=== PATIENT | male | born 1930 | race Caucasian/White ===

== ENCOUNTER 2016-08-27 20:55 | Emergency (ER) | payer OTHER, BC ==
[2016-08-27 21:13] VITALS: BP 124/68; PULSE 78; TEMP 98.1; BMI 25.7
--- NOTE | 2016-08-27 21:55 | PDOC ---
History of Present Illness - History of Present Illness Initial Comments: 08/27/16 21:56 The patient is a 86 year old male, with a significant past medical history of angina, hypertension, prostate cancer (s/p radiation and Lupron), bifascicular block, vertigo, and kidney stones (with lithotripsy) who presents to the emergency department with persistent, productive cough today. The patient states he was washing dishes when he coughed up sputum and took a sip of juice which initiated a sensation of choking and non-stop coughing at home. He reports the juice went down the wrong pipe. He states he panicked at that time and called ems to bring him to the ED. He reports feeling fine now. The patient reports recently completing a 7 day dose of amoxicillin for bronchitis. He also reports having a low-grade fever (99F-100F) and right eye infection. He denies throat pain. He denies chest pain, shortness of breath, headache and dizziness. He denies fever, chills, nausea, vomit, diarrhea and constipation. He denies dysuria, frequency, urgency and hematuria. Allergies: NKDA PCP - Dr. Kita Mcdaniel ([phone]) <Msaha Torres - Last Filed: 08/27/16 21:58> <Ember Restrepo - Last Filed: 08/28/16 02:55> - General Chief Complaint: Respiratory Stated Complaint: COUGH & SOB Time Seen by Provider: 08/27/16 20:58 Past History <Masha Torres - Last Filed: 08/27/16 21:58> - Past Medical History Cancer: Yes (prostate, tx with radiation and Lupron q3-6 monthly) Hypercholesterolemia: Yes Kidney Stones: Yes (w/ lithotripsy) - Psycho/Social/Smoking Cessation Hx Anxiety: No Suicidal Ideation: No Smoking History: Never smoked Have you smoked in the past 12 months: No Hx Alcohol Use: No Drug/Substance Use Hx: No Substance Use Type: None, Alcohol <Ember Restrepo - Last Filed: 08/28/16 02:55> - Past Medical History Allergies/Adverse Reactions: Allergies Allergy/AdvReac Type Severity Reaction Status Date / Time No Known Allergies Allergy Verified 08/27/16 21:01 Home Medications: Ambulatory Orders Aspirin [ASA -] 81 mg PO DAILY 06/06/13 Amoxicillin - [Amoxicillin 500mg Capsule -] 500 mg PO BID 08/27/16 Benzonatate [Tessalon Pearls -] 100 mg PO TID 08/27/16 Moxifloxacin HCl [Vigamox 0.5% Eye Drops -] 1 drop OU TID 08/27/16 Review of Systems - Review of Systems Able to Perform ROS?: Yes Comments:: 08/27/16 21:56 CONSTITUTIONAL: (+) fever, Absent: chills, diaphoresis, generalized weakness, malaise, loss of appetite HEENT: Absent: rhinorrhea, nasal congestion, throat pain, throat swelling, difficulty swallowing,mouth swelling, ear pain, eye pain, visual Changes CARDIOVASCULAR: Absent: chest pain, syncope, palpitations, irregular heart rate, lightheadedness , peripheral edema RESPIRATORY: (+) cough, absent: shortness of breath, dyspnea with exertion, orthopnea, wheezing, stridor, hemoptysis GASTROINTESTINAL: Absent: abdominal pain, abdominal distension, nausea, vomiting, diarrhea, constipation, melena, hematochezia GENITOURINARY: Absent: dysuria, frequency, urgency, hesitancy, hematuria, flank pain, genital pain MUSCULOSKELETAL: Absent: myalgia, arthralgia, joint swelling SKIN: Absent: rash, itching, pallor HEMATOLOGIC/IMMUNOLOGIC: Absent: easy bleeding, easy bruising, lymphadenopathy, frequent infections ENDOCRINE: Absent: unexplained weight gain, unexplained weight loss, heat intolerance, cold intolerance NEUROLOGIC: Absent: headache, focal weakness or paresthesias, dizziness, unsteady gait, seizure, mental status changes, bladder or bowel incontinence PSYCHIATRIC: Absent: anxiety, depression, suicidal or homicidal ideation, hallucinations. <Masha Torres - Last Filed: 08/27/16 21:58> *Physical Exam - Vital Signs Last Vital Signs Temp Pulse Resp BP Pulse Ox 98.1 F 78 16 124/68 99 08/27/16 20:57 08/27/16 20:57 08/27/16 20:57 08/27/16 20:57 08/27/16 20:57 - Physical Exam Comments: 08/27/16 21:56 GENERAL: The patient is awake, alert, and fully oriented, in no acute distress. HEAD: Normal with no signs of trauma. EYES: Pupils equal, round and reactive to light, extraocular movements intact, sclera anicteric, conjunctiva clear with no pallor. ENT: (+) mildly erythematous oropharynx without exudates. Moist mucous membranes. Ears normal, nares patent, oropharynx clear NECK: Normal range of motion, supple without lymphadenopathy, JVD, or masses. No stridor. LUNGS: Breath sounds equal, clear to auscultation bilaterally. No wheeze/ crackles. HEART: Regular rate and rhythm, normal S1 and S2 without murmur or rub. ABDOMEN: Soft/nontender/nondistended. BS wnl. No guarding or rebound. No palpable masses. No hepatosplenomegaly. EXTREMITIES: (+) 2+ pitting edema bilaterally. Normal range of motion. No clubbing or cyanosis. No cords, erythema, or tenderness. NEUROLOGICAL: Cranial nerves II through XII grossly intact. Normal speech, normal gait. PSYCH: Normal mood, normal affect. SKIN: Warm, Dry, normal turgor, no rashes or lesions noted. <Masha Torres - Last Filed: 08/27/16 21:58> - Vital Signs Last Vital Signs Temp Pulse Resp BP Pulse Ox 98.1 F 78 16 124/68 99 08/27/16 20:57 08/27/16 20:57 08/27/16 20:57 08/27/16 20:57 08/27/16 20:57 <Ember Restrepo - Last Filed: 08/28/16 02:55> Progress Note - Progress Note Progress Note: Documentation has been prepared under my direction and personally reviewed by me in its entirety. I attest that this documented accurately reflects all work, treatment, procedures and medical decision making performed by me. <Ember Restrepo - Last Filed: 08/28/16 02:55> Medical Decision Making - Medical Decision Making As noted above, this 86-year-old man was brought into the ER by ambulance after having a brief choking episode as he was drinking juice and coughing. The patient became rapidly improved on arrival here. He now states that he has no chest pain and has not coughed more since the episode. Patient has been taking amoxicillin for bronchitis. Exam as noted; patient is afebrile with 99% saturation on room air. He is in no respiratory distress. Lungs are clear on auscultation. Since no evidence of respiratory distress, no further workup will be performed at this time. Message was left on patient's PMD's voicemail regarding presentation of the patient. Patient and his state that they will call his PMD (Dr. Kita Mcdaniel Blanchard) in the morning to arrange follow-up within the next few days. Meanwhile, the patient develops any worsening cough/fever/wheezing, he should return to the emergency room. <Ember Restrepo - Last Filed: 08/28/16 02:55> *DC/Admit/Observation/Transfer - Attestations Scribe Attestion: 08/27/16 21:58 Documentation prepared by Masha Torres, acting as medical laboratory technical officer for Ember Restrepo MD <Masha Torres - Last Filed: 08/27/16 21:58> <Ember Restrepo - Last Filed: 08/28/16 02:55> Diagnosis at time of Disposition: History of dysphagia, Bronchitis - Discharge Dispostion Disposition: HOME Condition at time of disposition: Stable - Referrals Referrals: Kita Mcdaniel MD, MD [Primary Care Provider] - Call tomorrow - Patient Instructions Printed Discharge Instructions: DI for Acute Bronchitis Additional Instructions: continue medications as prescribed call Dr Mcdaniel tomorrow and follow-up within the next 1-2 days Return to ER if difficulty breathing or high fever develop
== END 2016-08-27 22:43 | disposition home or self-care (01) ==
LOC: FER 20:55
DX: J40 Bronchitis, not specified as acute or chronic (principal); R13.10 Dysphagia, unspecified; Z85.46 Personal history of malignant neoplasm of prostate; E78.00 Pure hypercholesterolemia, unspecified
CPT/HCPCS: 99281-25

== ENCOUNTER 2017-10-23 21:55 | Emergency (ER) | payer OTHER, BC ==
[2017-10-23 22:18] VITALS: BP 117/65; TEMP 98; BMI 27.8
[2017-10-23] MEDS ORDERED: guaiFENesin 200 MG/10 ML 10 ML UNIT-DOSE CUPS PO ONE (22:21)
--- NOTE | 2017-10-23 22:21 | PDOC ---
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 Patient states that he was at his 's wake when he was crying over her casket, he felt the mucus "go down the wrong way" and she began coughing. He states that he was pack on the back to spit the mucus out. He presents for evaluation. Patient states that he is back at his baseline and would like to go home as he has to attend his 's tomorrow morning. Denies fevers, chills, sore throat, shortness of breath, difficulty breathing, chest pain, nausea, vomiting and diarrhea. Past History - Travel Traveled outside of the country in the last 30 days: No Close contact w/someone who was outside of country & ill: No - Past Medical History Allergies/Adverse Reactions: Allergies Allergy/AdvReac Type Severity Reaction Status Date / Time No Known Allergies Allergy Verified 10/23/17 22:15 Home Medications: Ambulatory Orders Azithromycin [Zithromax 250mg Tablets -] 250 mg PO UTDICT #6 tab 10/23/17 Cetirizine HCl [Zyrtec -] 10 mg PO DAILY #30 tablet 10/23/17 Methylprednisolone [Medrol Dose Jayro] 4 mg PO ASDIR #21 tablet 10/23/17 Cancer: Yes (prostate, tx with radiation and Lupron q3-6 monthly) Hypercholesterolemia: Yes Kidney Stones: Yes (w/ lithotripsy) - Suicide/Smoking/Psychosocial Hx Smoking History: Never smoked Have you smoked in the past 12 months: No Information on smoking cessation initiated: No Hx Alcohol Use: No Drug/Substance Use Hx: No Substance Use Type: None, Alcohol Review of Systems - Review of Systems Able to Perform ROS?: Yes Comments:: 10/23/17 23:02 CONSTITUTIONAL: Absent: fever, chills, diaphoresis, generalized weakness, malaise, loss of appetite HEENT: Present: postnasal drip Absent: rhinorrhea, nasal congestion, throat pain, throat swelling, difficulty swallowing, mouth swelling, ear pain, eye pain, visual Changes CARDIOVASCULAR: Absent: chest pain, loss of consciousness, palpitations, irregular heart rate, peripheral edema RESPIRATORY: Present: cough Absent: shortness of breath, dyspnea with exertion, orthopnea, wheezing, stridor, hemoptysis GASTROINTESTINAL: Absent: abdominal pain, abdominal distension, nausea, vomiting, diarrhea, constipation, melena, hematochezia GENITOURINARY: Absent: dysuria, frequency, urgency, hesitancy, hematuria, flank pain, genital pain MUSCULOSKELETAL: Absent: myalgia, arthralgia, joint swelling SKIN: Absent: rash, itching, pallor HEMATOLOGIC/IMMUNOLOGIC: Absent: easy bleeding, easy bruising, lymphadenopathy, frequent infections ENDOCRINE: Absent: unexplained weight gain, unexplained weight loss, heat intolerance, cold intolerance NEUROLOGIC: Absent: headache, focal weakness or paresthesias, dizziness, unsteady gait, seizure, mental status changes, bladder or bowel incontinence PSYCHIATRIC: Absent: anxiety, depression, suicidal or homicidal ideation, hallucinations. Is the patient limited Armenian proficient: No *Physical Exam - Vital Signs Last Vital Signs Temp Pulse Resp BP Pulse Ox 98.0 F 112 H 18 117/65 96 10/23/17 22:00 10/23/17 22:00 10/23/17 22:00 10/23/17 22:00 10/23/17 22:00 - Physical Exam Comments: 10/23/17 23:04 GENERAL: Well developed, well nourished. Awake and alert. No acute distress. HEENT: Normocephalic, atraumatic. PERRLA, EOMI. No conjunctival pallor. Sclera are non- icteric. Moist mucous membranes. Oropharynx is clear. NECK: Supple. Full ROM. No JVD. Carotid pulses 2+ and symmetric, without bruits. No thyromegaly. No lymphadenopathy. CARDIOVASCULAR: Regular rate and rhythm. No murmurs, rubs, or gallops. Distal pulses are 2+ and symmetric. PULMONARY: Wet cough on exam. No evidence of respiratory distress. Lungs clear to auscultation bilaterally. No wheezing, rales or rhonchi. ABDOMINAL: Soft. Non-tender. Non-distended. No rebound or guarding. No organomegaly. Normoactive bowel sounds. MUSCULOSKELETAL Normal range of motion at all joints. No bony deformities or tenderness. No CVA tenderness. EXTREMITIES: No cyanosis. No clubbing. No edema. No calf tenderness. SKIN: Warm and dry. Normal capillary refill. No rashes. No jaundice. NEUROLOGICAL: Alert, awake, appropriate. Cranial nerves 2-12 intact. No deficits to light touch and temperature in face, upper extremities and lower extremities. No motor deficits in the in face, upper extremities and lower extremities. Normoreflexic in the upper and lower extremities. Normal speech. Toes are down- going bilaterally. Gait is normal without ataxia. PSYCHIATRIC: Cooperative. Good eye contact. Appropriate mood and affect. ED Treatment Course - LABORATORY CBC & Chemistry Diagram: 10/23/17 22:23 10/23/17 22:23 Medical Decision Making - Medical Decision Making 10/23/17 23:10 Patient is an 87-year-old male who presents to emergency department for shortness of breath after inhaling his saliva while crying over his 's casket. Patient states he is at his baseline now and does not feel short of breath. He states that he is not staying overnight because he also tends his seen on the morning. Basic lab work EKG and chest x-ray were obtained. Lab work is grossly normal. Chest x-ray shows right lower/middle lobe pneumonia. Possible aspiration pneumonia. We'll treat with azithromycin and prednisone. Strict return precautions given. Patient to follow up with his primary care doctor this week. We'll discharge home at this time. Patient says all discharge instructions and all questions are answered. EKG: Sinus Rhythm, rate 77 BPM. L axis deviation, RBBB. No acute ST-T wave changes. MA interval shorter when compared with EKG from 04/26/13, other matias unchanged. *DC/Admit/Observation/Transfer Diagnosis at time of Disposition: Postnasal drip Pneumonia Qualifiers: Pneumonia type: due to unspecified organism Laterality: right Lung location: lower lobe of lung Qualified Code(s): J18.1 - Lobar pneumonia, unspecified organism - Discharge Dispostion Disposition: HOME Condition at time of disposition: Stable Decision to Admit order: No - Prescriptions Prescriptions: Azithromycin [Zithromax 250mg Tablets -] 250 mg PO UTDICT #6 tab Cetirizine HCl [Zyrtec -] 10 mg PO DAILY #30 tablet Methylprednisolone [Medrol Dose Jayro] 4 mg PO ASDIR #21 tablet - Referrals Referrals: Baljeet Garcia MD [Staff Physician] - - Patient Instructions Printed Discharge Instructions: DI for Pneumonia -- Adult Additional Instructions: You have a pneumonia based on your x-ray Please take the azithromycin and prednisone as directed. Take these medications up tomorrow. Please take the Zyrtec daily to help with her postnasal drip. Please follow up with your primary care doctor this week. Please also follow-up with Dr. Garcia within the next 7 days. Return to the emergency department if you have increasing shortness of breath, fevers, chills, difficulty breathing, or if you have any changes in your symptoms. - Post Discharge Activity
[2017-10-23] MEDS ORDERED: guaiFENesin 200 MG/10 ML 10 ML UNIT-DOSE CUPS ONE (22:33)
[2017-10-23 22:42] LABS: EOS % 3.2 % (0-4.5); HEMATOCRIT 35.5 % (35.4-49); LYMPH % 7.8 % (8-40); MCH 30.8 pg (25.7-33.7); MCHC 33.9 g/dl (32.0-35.9); MEAN PLT VOLUME 7.8 fl (7.5-11.1); MONO % 7.1 % (3.8-10.2); NEUT % 80.9 % (42.8-82.8); PLATELET COUNT 307 K/MM3 (134-434); RDW 14.2 % (11.9-15.9); WHITE BLOOD COUNT 6.8 K/mm3 (4.0-10.0)
[2017-10-23 23:10] LABS: ALBUMIN 2.9 g/dl (3.4-5.0); ANION GAP 6 (8-16); BILIRUBIN,TOTAL 0.4 mg/dL (0.2-1.0); BLOOD UREA NITROGEN 20 mg/dL (7-18); CALCIUM 8.3 mg/dL (8.5-10.1); CHLORIDE 103 mmol/L (98-107); CO2 28 mmol/L (21-32); CREATININE 0.9 mg/dL (0.7-1.3); GLUCOSE,RANDOM 112 mg/dL (74-106); POTASSIUM 4.2 mmol/L (3.5-5.1); SGOT/AST 26 U/L (15-37); SGPT/ALT 15 U/L (12-78); SODIUM 137 mmol/L (136-145); TOT PROT 6.1 g/dl (6.4-8.2)
[2017-10-23 23:11] LABS: ALK PHOS 102 U/L (45-117)
[2017-10-23 23:57] VITALS: PULSE 97
--- NOTE | 2017-10-24 11:53 | EKG ---
Test Reason : Blood Pressure : / mmHG Vent. Rate : 077 BPM Atrial Rate : 077 BPM P-R Int : 156 ms QRS Dur : 146 ms QT Int : 396 ms P-R-T Axes : -12 -44 034 degrees QTc Int : 448 ms POOR DATA QUALITY, INTERPRETATION MAY BE ADVERSELY AFFECTED NORMAL SINUS RHYTHM LEFT AXIS DEVIATION RIGHT BUNDLE BRANCH BLOCK ABNORMAL ECG WHEN COMPARED WITH ECG OF 26-APR-2013 16:02, SD INTERVAL HAS DECREASED Confirmed by HOLLY SHEETS MD ([id number]) on 10/24/2017 11:52:56 AM Referred By: Confirmed By:HOLLY SHEETS MD
== END 2017-10-24 00:02 | disposition home or self-care (01) ==
LOC: JER 21:55
DX: J18.9 Pneumonia, unspecified organism (principal); E78.5 Hyperlipidemia, unspecified; Z85.46 Personal history of malignant neoplasm of prostate; Z85.118 Personal history of other malignant neoplasm of bronchus and lung; Z87.442 Personal history of urinary calculi; I44.0 Atrioventricular block, first degree
CPT/HCPCS: 36415; 71045-TC-FY; 80053; 85025; 93005; 93010; 99282-25

== ENCOUNTER 2018-01-06 11:57 | Emergency (ER) | payer OTHER, BC ==
[2018-01-06 12:01] VITALS: BP 112/63; PULSE 80; TEMP 98.1; BMI 30.1
--- NOTE | 2018-01-06 12:24 | PDOC ---
Attending Attestation - Resident Resident Name: Mally Rodriguez - ED Attending Attestation I have performed the following: I have examined & evaluated the patient, The case was reviewed & discussed with the resident, I agree w/resident's findings & plan, Exceptions are as noted - HPI HPI: 01/06/18 12:55 87y M hx of prostate ca with chronic barger, came out overnight. pt notes mild abd pressure from wanting to relieve himself. denies any bleeding, hematuria, dysuria, fever/cihlls, back pain. on exam pt with mildly tender suprapubic region that is distended no acute distress othrwise barger cathter was placed with 200cc output - Physicial Exam PE: 01/09/18 20:16 see above - Medical Decision Making 01/09/18 20:16 see above
--- NOTE | 2018-01-06 12:26 | PDOC ---
History of Present Illness - General Chief Complaint: Urinary Catheter Problem Stated Complaint: URINARY PROBLEM Time Seen by Provider: 01/06/18 12:00 History Source: Patient Exam Limitations: No Limitations - History of Present Illness Initial Comments: 01/06/18 12:21 Pt is a 87yo m with PMH of prostate ca with mets to lungs, bones, liver presenting to ED for replacement of barger catheter. Pt said around midnight the barger stopped collecting urine then dislodged, balloon intact. He has been retaining since then. He admits to pain and pressure in the suprapubic region. Denies fever, chills, n/v/d, blood at the meatus or in urine. He is a size 16F. Gets it changed monthly. Urologist: Dr. Peres 01/06/18 12:46 Past History - Past Medical History Allergies/Adverse Reactions: Allergies Allergy/AdvReac Type Severity Reaction Status Date / Time No Known Allergies Allergy Verified 01/06/18 11:59 Home Medications: Ambulatory Orders Mirtazapine [Remeron -] 15 mg PO HS 01/06/18 Tramadol HCl 50 mg PO BID 01/06/18 Cancer: Yes (prostate, tx with radiation and Lupron q3-6 monthly) COPD: No Hypercholesterolemia: Yes Kidney Stones: Yes (w/ lithotripsy) - Suicide/Smoking/Psychosocial Hx Smoking History: Never smoked Have you smoked in the past 12 months: No Hx Alcohol Use: No Drug/Substance Use Hx: No Substance Use Type: None, Alcohol Review of Systems - Review of Systems Constitutional: No: Chills, Fever, Weakness Respiratory: No: Cough, Shortness of Breath Cardiac (ROS): No: Chest Pain, Lightheadedness, Palpitations, Syncope ABD/GI: Yes: Abdominal cramping (suprapubic). No: Constipated, Diarrhea, Nausea , Vomiting : No: Burning, Dysuria, Hematuria, Pain, Testicular Mass, Testicular Pain Musculoskeletal: No: Back Pain, Muscle Pain Neurological: No: Headache *Physical Exam - Vital Signs Last Vital Signs Temp Pulse Resp BP Pulse Ox 98.1 F 80 18 112/63 100 01/06/18 11:59 01/06/18 11:59 01/06/18 11:59 01/06/18 11:59 01/06/18 11:59 - Physical Exam General Appearance: Yes: Appropriately Dressed, Thin. No: Apparent Distress HEENT: positive: EOMI, OMKAR, Pharynx Normal. negative: Pharyngeal Erythema Neck: positive: Trachea midline, Supple. negative: Lymphadenopathy (R), Lymphadenopathy (L) Respiratory/Chest: positive: Lungs Clear, Normal Breath Sounds. negative: Crackles, Rales, Rhonchi, Stridor Cardiovascular: positive: Regular Rhythm, Regular Rate, S1, S2. negative: JVD, Murmur Vascular Pulses: Carotid (R): 2+, Carotid (L): 2+, Dorsalis-Pedis (R): 2+, Doralis-Pedis (L): 2+ Gastrointestinal/Abdominal: positive: Normal Bowel Sounds, Soft, Tenderness ( tender to palpation in suprapubic region). negative: Distended, Guarding, Rebound Male Genitalia: positive: normal genitalia. negative: discharge, testicular tenderness, testicular mass, hematuria Musculoskeletal: negative: CVA Tenderness Integumentary: positive: Normal Color, Dry, Warm Neurologic: positive: credit risk manager II-XII NML intact, Fully Oriented, Alert, Normal Mood/ Affect, Normal Response Medical Decision Making - Medical Decision Making 01/06/18 12:50 Pt is a 87yo m with PMH of metastatic prostate cancer, urinary retention presenting to ED with dislodged barger catheter. Balloon was still intact according to Aide. No blood at urethral meatus, no blood in urine prior to dysfunction. No fevers, chills. Abdominal pain most likely due to retention. New barger 16F inserted. Draining properly. No blood in urine. Slightly cloudy. Pt reported relief of abdominal pain. Drained 200cc then stopped. Leg bag placed. At this time, no need for UA especially since pt has not had problem with previous catheters. Pt is afebrile and hemodynamically stable. Has good urology follow up. Pt can be d/c home and follow up with urologist. Pt agrees with plan and understands return precautions. *DC/Admit/Observation/Transfer Diagnosis at time of Disposition: Urinary catheter insertion/adjustment/removal - Discharge Dispostion Disposition: HOME Condition at time of disposition: Improved Decision to Admit order: No - Referrals Referrals: Chip Malave MD [Staff Physician] - - Patient Instructions Printed Discharge Instructions: How to Care for Your Barger Catheter -- Male Additional Instructions: You were seen here today because your barger catheter was dislodged. We placed in a new 16F catheter. Please follow up with Dr. Malave. Please come back to the ED if: the catheter becomes dislodged, the catheter isn' t draining, there is change in the color of urine, there is blood in the urine, there is urine leaking around the catheter, you develop fevers, chills, abdominal pain or if any new concerning symptom develops. Thank you! - Post Discharge Activity
== END 2018-01-06 12:55 | disposition home or self-care (01) ==
LOC: JER 11:57
PROC: 0TWB70Z Revision of Drainage Device in Bladder, Via Natural or Artificial Opening (ICD-10-PCS; principal; 2018-01-06)
DX: T83.028A Displacement of other urinary catheter, initial encounter (principal); Z85.46 Personal history of malignant neoplasm of prostate; Z85.118 Personal history of other malignant neoplasm of bronchus and lung; Z85.05 Personal history of malignant neoplasm of liver; E78.00 Pure hypercholesterolemia, unspecified; Z87.442 Personal history of urinary calculi
CPT/HCPCS: 51702; 99283-25

== ENCOUNTER 2018-01-19 07:37 | Emergency (ER) | payer OTHER, BC ==
[2018-01-19 07:53] VITALS: TEMP 98.5; BMI 18.3
--- NOTE | 2018-01-19 08:38 | PDOC ---
Attending Attestation - Resident Resident Name: Scott Reeseel - ED Attending Attestation I have performed the following: I have examined & evaluated the patient, The case was reviewed & discussed with the resident, I agree w/resident's findings & plan, Exceptions are as noted - HPI HPI: 01/19/18 08:31 87-year-old male with past medical history of prostate cancer status post indwelling Anaya catheter, last changed in January 06 presents with clogged Anaya catheter. Patient noted yesterday that he was not urinating to the catheter. Reported abdominal distention with discomfort. No fevers or chills. No nausea or vomiting. - Physicial Exam PE: 01/19/18 08:31 GENERAL: Awake, alert, and fully oriented, in no acute distress HEAD: No signs of trauma EYES: EOMI, sclera anicteric, conjunctiva clear ENT: Auricles normal inspection, hearing grossly normal, nares patent, Moist mucosa NECK: Normal ROM, supple ABDOMEN: +abdominal distension, mild suprapubic tenderness. No guarding, no rebound. No masses : no rashes or lesions. no bleeding. EXTREMITIES: Normal range of motion, no edema. No clubbing or cyanosis. No cords, erythema, or tenderness NEUROLOGICAL: Cranial nerves II through XII grossly intact. Normal speech SKIN: Warm, Dry, normal turgor, no rashes or lesions noted. - Medical Decision Making 01/19/18 08:40 Vital Signs Temp Pulse Resp BP Pulse Ox 98.5 F 83 18 101/49 93 L 01/19/18 07:52 01/19/18 07:52 01/19/18 07:52 01/19/18 07:52 01/19/18 07:52 Urinary retention secondary to clogged Anaya catheter. New Anaya catheter insertion placed and over 400 mL of urine output immediately. Improvement in the abdominal exam noted. We'll obtain a UA and a urine culture rule out urinary tract infection. Obtain labs including creatinine to rule out obstruction renal failure. If the workup was unremarkable, the patient be discharged home with indwelling Anaya catheter and follow-up with urologist, Dr. Rodriguez. 01/19/18 10:05 CBC, BMP 01/19/18 09:16 01/19/18 09:16 CMP Sodium 137 mmol/L (136-145) 01/19/18 09:16 Potassium 4.4 mmol/L (3.5-5.1) 01/19/18 09:16 Chloride 102 mmol/L (98-107) 01/19/18 09:16 Carbon Dioxide 24 mmol/L (21-32) 01/19/18 09:16 Anion Gap 11 MMOL/L (8-16) 01/19/18 09:16 BUN 28 mg/dL (7-18) H 01/19/18 09:16 Creatinine 0.8 mg/dL (0.55-1.3) 01/19/18 09:16 Creat Clearance w eGFR > 60 (>60) 01/19/18 09:16 Random Glucose 103 mg/dL (74-106) 01/19/18 09:16 Calcium 9.3 mg/dL (8.5-10.1) 01/19/18 09:16 Total Bilirubin 0.5 mg/dL (0.2-1.0) 01/19/18 09:16 AST 36 U/L (15-37) 01/19/18 09:16 ALT 17 U/L (13-61) 01/19/18 09:16 Alkaline Phosphatase 142 U/L (45-117) H 01/19/18 09:16 Total Protein 7.0 g/dl (6.4-8.2) 01/19/18 09:16 Albumin 3.6 g/dl (3.4-5.0) 01/19/18 09:16 Urine Test Results Urine Color Yellow 01/19/18 09:16 Urine Appearance Cloudy 01/19/18 09:16 Urine pH 7.0 (5.0-8.0) 01/19/18 09:16 Ur Specific [place] 1.015 (1.001-1.035) 01/19/18 09:16 Urine Protein 1+ (NEGATIVE) H 01/19/18 09:16 Urine Glucose (UA) Negative (NEGATIVE) 01/19/18 09:16 Urine Ketones Negative (NEGATIVE) 01/19/18 09:16 Urine Blood 2+ (NEGATIVE) H 01/19/18 09:16 Urine Nitrite Negative (NEGATIVE) 01/19/18 09:16 Urine Bilirubin Negative (<2.0 mg/dL) 01/19/18 09:16 Ur Leukocyte Esterase 2+ (NEGATIVE) H 01/19/18 09:16 Urine Bacteria Rare /hpf (NONE SEEN) 01/19/18 09:16 Urine Mucus Rare 01/19/18 09:16 Labs reviewed. Will treat urine with cephalexin and have the patient follow up with urologist.
--- NOTE | 2018-01-19 08:41 | PDOC ---
History of Present Illness - General Chief Complaint: Urinary Problem Stated Complaint: ABD PAIN Time Seen by Provider: 01/19/18 07:54 - History of Present Illness Initial Comments: 01/19/18 08:51 The patient is an 87 year old male with a history of metastatic prostate CA, HLD , Kidney stones who presents for evaluation of urinary retention. The patient notes that his barger catheter stopped draining 1 day ago and the patient reports progressively worsening lower abdominal pain prompting his presentation to the ED for further evaluation. He notes that his urologist is Dr. Malave and he recently had his barger catheter changed 1-2 weeks ago. He otherwise denies fevers, chills, SOB, chest pain, nausea, vomiting, or changes with bowel movements. Past History - Past Medical History Allergies/Adverse Reactions: Allergies Allergy/AdvReac Type Severity Reaction Status Date / Time No Known Allergies Allergy Verified 01/06/18 11:59 Home Medications: Ambulatory Orders Mirtazapine [Remeron -] 15 mg PO HS 01/06/18 Tramadol HCl 50 mg PO BID 01/06/18 Cephalexin Monohydrate [Keflex -] 500 mg PO BID #14 capsule 01/19/18 Cancer: Yes (prostate, tx with radiation and Lupron q3-6 monthly) COPD: No Hypercholesterolemia: Yes Kidney Stones: Yes (w/ lithotripsy) - Suicide/Smoking/Psychosocial Hx Smoking History: Never smoked Have you smoked in the past 12 months: No Information on smoking cessation initiated: No Hx Alcohol Use: No Drug/Substance Use Hx: No Substance Use Type: None, Alcohol Review of Systems - Review of Systems Comments:: 01/19/18 08:56 Constitutional: No fevers, chills, fatigue, malaise HEENT: No Rhinorrhea, nasal congestion, visual changes Cardiovascular: No chest pain, syncope, palpitations, lightheadedness Respiratory: No Cough, SOB, Hemoptysis, Gastrointestinal: Lower abdominal pain. No Nausea, Vomiting, Constipation, Diarrhea, Melena Genitourinary: Urinary retention. No Dysuria, Frequency, Urgency, Hesitancy, Hematuria, Flank pain Musculoskeletal: No Myalgia, arthralgia Skin: No rashes, itching, bruising, pallor Neurologic: No Headache, Dizziness, Numbness, Weakness, or Tingling. Psychiatric: No Hallucinations. No SI or HI *Physical Exam - Vital Signs Last Vital Signs Temp Pulse Resp BP Pulse Ox 98.5 F 83 18 101/49 93 L 01/19/18 07:52 01/19/18 07:52 01/19/18 07:52 01/19/18 07:52 01/19/18 07:52 - Physical Exam Comments: 01/19/18 08:56 General Appearance: Nourished. No Apparent Distress HEENT: No Pharyngeal Erythema, Tonsillar Exudate, Tonsillar Erythema Neck: No Cervical Lymphadenopathy Respiratory/Chest: Lungs Clear, Normal Breath Sounds. No Crackles, Rales, Rhonchi, Wheezing Cardiovascular: Regular Rhythm, Regular Rate. No Murmur, Gallops, Rubs Gastrointestinal/Abdominal: Normal Bowel Sounds, Soft. Lower abdominal tenderness to palpation noted on exam. No Guarding, Rebound, Musculoskeletal: No CVA Tenderness Extremity: Normal Capillary Refill Integumentary: Normal Color, Dry, Warm Neurologic: Fully Oriented, Alert, Normal Mood/Affect, Normal Response, ED Treatment Course - LABORATORY CBC & Chemistry Diagram: 01/19/18 09:16 01/19/18 09:16 Medical Decision Making - Medical Decision Making 01/19/18 09:03 The patient is an 87 year old male with a history of metastatic prostate CA, HLD , Kidney stones who presents for evaluation of urinary retention. Given the patient's history and physical exam, it is likely the patient's symptoms are due to urinary retention for a clogged barger catheter. We replaced the patient' s barger catheter here in the ED with over 400ccs of urine immediately drained. We will obtain a cbc, cmp, ua, urine culture to evaluate further. We will continue to monitor and reassess while here in the ED. 01/19/18 11:01 CBC, cmp are unremarkable. UA demonstrates leuk esterase with elevated wbc consistent with a UTI. We are comfortable discharging the patient home with urology follow up on antibiotics. We discussed the results, plan, and return precautions with the patient who voiced understanding and is agreeable with the plan. *DC/Admit/Observation/Transfer Diagnosis at time of Disposition: Urinary catheter insertion/adjustment/removal UTI (urinary tract infection) Qualifiers: Urinary tract infection type: site unspecified Hematuria presence: without hematuria Qualified Code(s): N39.0 - Urinary tract infection, site not specified - Discharge Dispostion Disposition: HOME Condition at time of disposition: Stable Decision to Admit order: No - Prescriptions Prescriptions: Cephalexin Monohydrate [Keflex -] 500 mg PO BID #14 capsule - Referrals Referrals: Chip Malave MD [Staff Physician] - - Patient Instructions Printed Discharge Instructions: How to Care for Your Barger Catheter -- Male, DI for Urinary Tract Infection (UTI) Additional Instructions: Please return to the ER if you experience concerning or worsening symptoms including worsening difficulty breathing, weakness, or chest pain. Your lab results were normal here in the ER. We have sent a prescription for antibiotics to your pharmacy that you should take as directed. Please call to schedule a follow up appointment with your primary care provider and urologist within 2-3 days to discuss your ER visit and further management of your symptoms. - Post Discharge Activity
[2018-01-19 09:29] LABS: EOS % 1.2 % (0-4.5); HEMATOCRIT 39.3 % (35.4-49); HEMOGLOBIN 13.1 GM/dL (11.7-16.9); LYMPH % 5.1 % (8-40); MCH 30.4 pg (25.7-33.7); MCHC 33.5 g/dl (32.0-35.9); MEAN CELL VOLUME 90.7 fl (80-96); MEAN PLT VOLUME 7.6 fl (7.5-11.1); MONO % 3.7 % (3.8-10.2); PLATELET COUNT 345 K/MM3 (134-434); RBC 4.33 M/mm3 (4.00-5.60); RDW 15.5 % (11.9-15.9); WHITE BLOOD COUNT 10.4 K/mm3 (4.0-10.0)
[2018-01-19 09:39] LABS: URINE APPEARANCE CLOUDY; URINE BILIRUBIN NEGATIVE (<2.0 mg/dL); URINE GLUCOSE (UA) NEGATIVE (NEGATIVE); URINE KETONE NEGATIVE (NEGATIVE); URINE NITRITE NEGATIVE (NEGATIVE); URINE UROBILINOGEN NEGATIVE mg/dL (0.2-1.0)
[2018-01-19 09:46] LABS: URINE COLOR YELLOW; URINE LEUK ESTERASE 2+ (NEGATIVE); URINE PROTEIN 1+ (NEGATIVE)
[2018-01-19 09:52] LABS: ALBUMIN 3.6 g/dl (3.4-5.0); ALK PHOS 142 U/L (45-117); ANION GAP 11 MMOL/L (8-16); BILIRUBIN,TOTAL 0.5 mg/dL (0.2-1.0); BLOOD UREA NITROGEN 28 mg/dL (7-18); CALCIUM 9.3 mg/dL (8.5-10.1); CHLORIDE 102 mmol/L (98-107); CO2 24 mmol/L (21-32); CREATININE 0.8 mg/dL (0.55-1.3); GLUCOSE,RANDOM 103 mg/dL (74-106); POTASSIUM 4.4 mmol/L (3.5-5.1); SGOT/AST 36 U/L (15-37); SGPT/ALT 17 U/L (13-61); SODIUM 137 mmol/L (136-145)
[2018-01-19 09:56] LABS: URINE BACTERIA RARE /hpf (NONE SEEN); URINE MUCUS RARE
[2018-01-19 10:27] VITALS: BP 105/50; PULSE 70
== END 2018-01-19 10:47 | disposition home or self-care (01) ==
LOC: JER 07:37
PROC: 0T9B70Z Drainage of Bladder with Drainage Device, Via Natural or Artificial Opening (ICD-10-PCS; principal; 2018-01-19)
DX: N39.0 Urinary tract infection, site not specified (principal); Z85.46 Personal history of malignant neoplasm of prostate; E78.5 Hyperlipidemia, unspecified
CPT/HCPCS: 36415; 51702; 80053; 81003; 81015; 85025; 87086; 87186; 99283-25

== ENCOUNTER 2018-02-03 14:44 | Emergency (ER) | payer OTHER, BC ==
--- NOTE | 2018-02-03 14:53 | PDOC ---
Rapid Medical Evaluation Time Seen by Provider: 02/03/18 14:49 Medical Evaluation: Allergies Allergy/AdvReac Type Severity Reaction Status Date / Time No Known Allergies Allergy Verified 01/06/18 11:59 I have performed a brief in-person evaluation of this patient. The patient presents with a chief complaint of: SOB and weak today Pertinent physical exam findings: patient appears pale. O2 sat in lower 90s. Lungs CTA. I have ordered the following: EKG, CXR, labs, 2L O2 via nasal canula The patient will proceed to the ED for further evaluation Discharge Disposition - Diagnosis Shortness of breath, Weakness - Referrals - Patient Instructions - Post Discharge Activity
[2018-02-03 14:55] VITALS: BP 114/51; PULSE 90; TEMP 98.7; BMI 21.4
--- NOTE | 2018-02-03 15:11 | PDOC ---
History of Present Illness <Jacob Ng - Last Filed: 02/03/18 19:54> - History of Present Illness Initial Comments: The patient is an 88M w/ reported metastatic prostate cancer on no medications at home and an indwelling catheter presents for evaluation of 1d of shortness of breath and weakness. The patient's caregiver also reports that he has appeared pale for the last 2-3 days as well. The patient's barger was exchanged today in Dr. Malave's office. The patient denies associated fevers/chills, chest pain, MIRANDA, diarrhea, or blood in his stool. The patient reports having his stool checked two weeks ago, and it was negative for blood per the patient. The patient reports having metastatic cancer to his lung and lumbar vertebrae. PCP: Dr. Hines Urology: Dr. Malave Additionally, patient reports having an appointment tomorrow in [place] to discuss radiation therapy but is not currently on any chemotherapy and does not take any medications at home 02/03/18 15:11 <Sanchez Thornton - Last Filed: 02/03/18 22:07> - General Chief Complaint: Shortness of Breath Stated Complaint: SHORTNESS OF BREATH,WEAKNESS Time Seen by Provider: 02/03/18 14:49 Past History <Jacob Ng - Last Filed: 02/03/18 19:54> - Past Medical History Cancer: Yes (prostate, tx with radiation and Lupron q3-6 monthly) COPD: No Hypercholesterolemia: Yes Kidney Stones: Yes (w/ lithotripsy) - Suicide/Smoking/Psychosocial Hx Smoking History: Never smoked Have you smoked in the past 12 months: No Hx Alcohol Use: No Drug/Substance Use Hx: No Substance Use Type: None, Alcohol <Sanchez Thornton - Last Filed: 02/03/18 22:07> - Past Medical History Allergies/Adverse Reactions: Allergies Allergy/AdvReac Type Severity Reaction Status Date / Time No Known Allergies Allergy Verified 02/03/18 14:56 Home Medications: Ambulatory Orders Mirtazapine [Remeron -] 15 mg PO HS 01/06/18 Tramadol HCl 50 mg PO BID 01/06/18 Cephalexin Monohydrate [Keflex -] 500 mg PO BID #14 capsule 01/19/18 Nitrofurantoin Monohyd/M-Cryst [Macrobid -] 100 mg PO BID #14 capsule 01/22/18 Review of Systems - Review of Systems Able to Perform ROS?: Yes Comments:: GENERAL/CONSTITUTIONAL: +generalized weakness; No fever or chills HEAD, EYES, EARS, NOSE AND THROAT: No change in vision. No ear pain or discharge. No sore throat CARDIOVASCULAR: No chest pain RESPIRATORY: No cough, wheezing, or hemoptysis GASTROINTESTINAL: No nausea, vomiting, diarrhea or constipation GENITOURINARY: +chronic barger changed today MUSCULOSKELETAL: No joint or muscle swelling or pain. No neck or back pain SKIN: No rash NEUROLOGIC: No headache, vertigo, loss of consciousness, or change in strength/ sensation ENDOCRINE: No increased thirst. No abnormal weight change HEMATOLOGIC/LYMPHATIC: +pallor; denies dvt ALLERGIC/IMMUNOLOGIC: No hives or skin allergy 02/03/18 16:06 02/03/18 16:07 Is the patient limited [place] proficient: No <Sanchez Thornton - Last Filed: 02/03/18 22:07> *Physical Exam - Vital Signs Last Vital Signs Temp Pulse Resp BP Pulse Ox 98.7 F 90 18 114/51 L 96 02/03/18 14:49 02/03/18 14:49 02/03/18 14:49 02/03/18 14:49 02/03/18 18:43 <Jacob Ng - Last Filed: 02/03/18 19:54> - Vital Signs Last Vital Signs Temp Pulse Resp BP Pulse Ox 98.7 F 90 18 114/51 L 99 02/03/18 14:49 02/03/18 14:49 02/03/18 14:49 02/03/18 14:49 02/03/18 14:49 - Physical Exam Comments: GENERAL: Awake, alert, and fully oriented, in no acute distress HEAD: No signs of trauma, normocephalic, atraumatic EYES: PERRL, EOMI, sclera anicteric, conjunctiva clear but w/ pallor ENT: Hearing grossly normal, nares patent, oropharynx clear without exudates NECK: Normal ROM, supple LUNGS: No distress, speaks full sentences, clear to auscultation bilaterally HEART:Regular rate and rhythm, normal S1 and S2, no murmurs appreciated, peripheral pulses normal and equal bilaterally ABDOMEN: Soft, nontender, normoactive bowel sounds. No guarding, no rebound EXTREMITIES : Normal inspection, Normal range of motion, no edema. No clubbing or cyanosis NEUROLOGICAL: Cranial nerves II through XII grossly intact. Normal speech, normal gait, no focal sensorimotor deficits SKIN: Warm, Dry, pallor, no rashes or lesions noted 02/03/18 16:05 <Sanchez Thornton - Last Filed: 02/03/18 22:07> Heart Score/ECG Review - ECG Impressions Comment:: 02/03/18 19:54 ekg performed 16:02 interpreted by myself rate of 75 sinus rythm with occasional pac RBBB, LAFB no st changes suggestive of ischemia <Jacob Ng - Last Filed: 02/03/18 19:54> ED Treatment Course - LABORATORY CBC & Chemistry Diagram: 02/03/18 16:50 02/03/18 16:50 - ADDITIONAL ORDERS Additional order review: Laboratory Results 02/03/18 02/03/18 02/03/18 16:50 16:50 16:50 PT with INR 11.90 INR 1.01 Sodium 136 Potassium 4.5 Chloride 100 Carbon Dioxide 24 Anion Gap 11 BUN 18 Creatinine 0.8 Creat Clearance w eGFR > 60 Random Glucose 89 Calcium 9.5 Total Bilirubin 0.5 AST 33 ALT 15 Alkaline Phosphatase 137 H Creatine Kinase 56 Troponin I < 0.02 Total Protein 6.5 Albumin 3.2 L Blood Type O POSITIVE Antibody Screen Negative 02/03/18 16:50 RBC 4.12 MCV 90.8 MCHC 33.4 RDW 15.1 MPV 7.4 L Neutrophils % 80.1 Lymphocytes % 9.1 D Monocytes % 8.5 D Eosinophils % 1.1 Basophils % 1.2 - Medications Given in the ED: ED Medications Discontinued Medications Generic Name Dose Route Start Last Admin Trade Name Freq PRN Reason Stop Dose Admin Sodium Chloride 500 mls @ 500 mls/hr 02/03/18 17:33 02/03/18 18:40 Normal Saline - IV 02/03/18 18:32 Not Given ASDIR STA <Jacob Ng - Last Filed: 02/03/18 19:54> - LABORATORY CBC & Chemistry Diagram: 02/03/18 16:50 02/03/18 16:50 <Sanchez Thornton - Last Filed: 02/03/18 22:07> Medical Decision Making - Medical Decision Making The patient is an 88M w/ a reported metastatic prostate cancer and chronic indwelling barger who presents for evaluation of shortness of breath and generalized weakness. Likely progression of malignancy v UTI/pyelo v anemia ED Course CMP, CBC, cardiac enzyems, UA ECG CXR Patient saturating 96-98% on 2L NC without increased work of breathing. Not on O2 at home 02/03/18 16:08 Trop I neg Lytes wnl Hgb 12 Patient refusing IV line to be placed. Will PO challenge Patient refusing CXR because he has a history of being treated for lung lesions that are thought to be PNA when he has known mets to his lungs. Discussed w/ patient that we would want to look for new pathology including PNX/PNA. He continued to deny CXR and verbalized understanding of risks Patient states that he would like to go home. Refused UA as well 02/03/18 17:53 Patient given strict return precautions. Patient reports that he will follow up with his doctor's appointment tomorrow Patient w/o evidence of systemic infection Dispo: home 02/03/18 18:37 <Sanchez Thornton - Last Filed: 02/03/18 22:07> *DC/Admit/Observation/Transfer - Discharge Dispostion Decision to Admit order: No <Jacob Ng - Last Filed: 02/03/18 19:54> - Discharge Dispostion Decision to Admit order: No <Sanchez Thornton - Last Filed: 02/03/18 22:07> Diagnosis at time of Disposition: Shortness of breath, Weakness - Discharge Dispostion Disposition: HOME Condition at time of disposition: Improved - Referrals Referrals: Lucas Mcdaniel MD, MD [Primary Care Provider] - - Patient Instructions Printed Discharge Instructions: DI for Shortness of Breath Additional Instructions: You were seen in the Emergency Department today for shortness of breath and generalized weakness. Please review the handouts provided at discharge. Please keep your doctor's appointment tomorrow. Return to the Emergency Room if you develop fevers, worsening symptoms, worsening shortness of breath, chest pain, or any new/concerning symptoms.
--- NOTE | 2018-02-03 15:15 | PDOC ---
Attending Attestation - Resident Resident Name: Sanchez Thornton - ED Attending Attestation I have performed the following: I have examined & evaluated the patient, The case was reviewed & discussed with the resident, I agree w/resident's findings & plan, Exceptions are as noted - HPI HPI: 02/03/18 15:45 The patient is a 88 year old male, with a significant past medical history of metastatic prostate CA to the lungs, HLD, Kidney stones, indwelling cateheter ( placed in October 2017 with chronic suprapubic pain), who presents to the emergency department with shortness of breath and weakness for today. He reportedly had a barger placed by Dr. Malave today. 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 He states he had a normal stool sample with Dr. Saucedo to evaluate for colon CA ""because he said it was unasafe for nme to have a colonoscopy at my age. The patient denies chest pain, headache and dizziness. The patient denies fever , chills, nausea, vomit, diarrhea and constipation. He denies blurred or doubledThe patient denies dysuria, frequency, urgency and hematuria. Allergies: NKDA PCP: Dr. Garcia Urology: Dr. Malave - Physicial Exam PE: 02/03/18 17:35 GENERAL: The patient is awake, alert, and fully oriented, cachectic appearing HEAD: Normocephalic, atraumatic. EYES: extraocular movements intact, sclera anicteric, conjunctiva pale. ENT: Normal voice, Moist mucous membranes. NECK: Normal range of motion, supple LUNGS: Breath sounds equal, clear to auscultation bilaterally. No wheezes, no rhonchi, no rales. HEART: Regular rate and rhythm, normal S1 and S2 without murmur, rub or gallop. ABDOMEN: Soft, nontender, No guarding, no rebound. . No CVA tenderness EXTREMITIES: Normal range of motion, no edema. NEUROLOGICAL: No facial assymetry, Normal speech, PSYCH: Normal mood, normal affect. SKIN: Warm, Dry, normal turgor, - Medical Decision Making 02/03/18 17:33 ddx for the pts sx includes but not limited to anemia, metabolic derangement, occult infection will ck labs, ua, will give fluids 02/03/18 17:59 pt declines fluids also denies a cxr. pt states he feels ok and doesnt want a cxr understands the risk that we may miss ptx, pna errquests to go home
[2018-02-03 16:58] LABS: BASO % 1.2 % (0-2.0); EOS % 1.1 % (0-4.5); HEMATOCRIT 37.4 % (35.4-49); HEMOGLOBIN 12.5 GM/dL (11.7-16.9); LYMPH % 9.1 % (8-40); MCH 30.3 pg (25.7-33.7); MCHC 33.4 g/dl (32.0-35.9); MEAN CELL VOLUME 90.8 fl (80-96); MEAN PLT VOLUME 7.4 fl (7.5-11.1); MONO % 8.5 % (3.8-10.2); NEUT % 80.1 % (42.8-82.8); PLATELET COUNT 399 K/MM3 (134-434); RBC 4.12 M/mm3 (4.00-5.60); RDW 15.1 % (11.9-15.9); WHITE BLOOD COUNT 7.7 K/mm3 (4.0-10.0)
[2018-02-03 17:17] LABS: INR 1.01 (0.83-1.09); PROTHROMBIN TIME (PATIENT) 11.9 SEC (9.7-13.0)
[2018-02-03 17:22] LABS: ALBUMIN 3.2 g/dl (3.4-5.0); ALK PHOS 137 U/L (45-117); ANION GAP 11 MMOL/L (8-16); BILIRUBIN,TOTAL 0.5 mg/dL (0.2-1); BLOOD UREA NITROGEN 18 mg/dL (7-18); CALCIUM 9.5 mg/dL (8.5-10.1); CHLORIDE 100 mmol/L (98-107); CO2 24 mmol/L (21-32); CREATININE 0.8 mg/dL (0.55-1.3); GLUCOSE,RANDOM 89 mg/dL (74-106); POTASSIUM 4.5 mmol/L (3.5-5.1); SGOT/AST 33 U/L (15-37); SGPT/ALT 15 U/L (13-61); SODIUM 136 mmol/L (136-145); TOT PROT 6.5 g/dl (6.4-8.2)
[2018-02-03] MEDS ORDERED: SODIUM CHLORIDE 500 ML IV STA (17:33)
--- NOTE | 2018-02-04 10:44 | EKG ---
Test Reason : Blood Pressure : / mmHG Vent. Rate : 075 BPM Atrial Rate : 075 BPM P-R Int : 164 ms QRS Dur : 122 ms QT Int : 394 ms P-R-T Axes : 086 -57 031 degrees QTc Int : 439 ms SINUS RHYTHM WITH PREMATURE ATRIAL COMPLEXES RIGHT BUNDLE BRANCH BLOCK LEFT ANTERIOR FASCICULAR BLOCK BIFASCICULAR BLOCK ABNORMAL ECG WHEN COMPARED WITH ECG OF 23-OCT-2017 22:39, PREMATURE ATRIAL COMPLEXES ARE NOW PRESENT Confirmed by Jason Howard MD ([id number]) on 02/04/2018 10:43:41 AM Referred By: Confirmed By:Jason Howard MD
== END 2018-02-03 19:02 | disposition home or self-care (01) ==
LOC: JER 14:44
PROC: 3E0337Z Introduction of Electrolytic and Water Balance Substance into Peripheral Vein, Percutaneous Approach (ICD-10-PCS; principal; 2018-02-03)
DX: R53.1 Weakness (principal); R06.02 Shortness of breath; E78.00 Pure hypercholesterolemia, unspecified; Z85.46 Personal history of malignant neoplasm of prostate; Z85.118 Personal history of other malignant neoplasm of bronchus and lung; Z85.830 Personal history of malignant neoplasm of bone; Z87.898 Personal history of other specified conditions
CPT/HCPCS: 36415; 80053; 82550; 84484; 85025; 85610; 86850; 86900; 86901; 93005; 93010; 96360; 99282-25

== ENCOUNTER 2018-02-20 00:16 | Emergency (ER) | payer OTHER, BC ==
[2018-02-20 00:23] VITALS: BP 114/53; PULSE 77; TEMP 97.5; BMI 22.1
--- NOTE | 2018-02-20 01:46 | PDOC ---
History of Present Illness - General Chief Complaint: Urinary Catheter Problem Stated Complaint: CATHETER PROBLEM Time Seen by Provider: 02/20/18 01:46 History Source: Patient Exam Limitations: No Limitations - History of Present Illness Initial Comments: 02/20/18 02:04 Ms Quijano is an 88 yo M h/o metastatic prostate cancer (to lungs and lumbar vertebrae) who presents to the ER with a complaint of barger cathether dysfunction Pt states he believes that he has a urinary tract infection (because earlier in the week he say sediment in the urine which he described as crumbs) He was seen by his PMD today who that patient states did not want to start antibiotics Today after supper, the patient states he noticed that he did not see any urine in the "tube" He noted suprapubic tenderness which prompted his visit to the ER NO fevers or chills No flank pain No nausea or vomiting PCP: Dr. Hines Urology: Dr. Malave PMH:Metastatic prostate cancer, HLD, h/o Kidney stones Meds: Lupron, Cipro was prescribed today ALL: NKDA Social: Denies drug or tobacco use ROS: GENERAL/CONSTITUTIONAL: No: fever, chills, weakness HEAD, EYES, EARS, NOSE AND THROAT: No: change in vision, ear pain, discharge, sore throat, throat swelling. CARDIOVASCULAR: No: chest pain, lightheadedness RESPIRATORY: No: cough, shortness of breath, wheezing, hemoptysis, stridor. GASTROINTESTINAL: No: nausea, vomiting, diarrhea, abdominal pain GENITOURINARY: No: dysuria, hematuria MUSCULOSKELETAL: No: back pain SKIN AND BREASTS: No: lesions, pallor, rash or easy bruising. NEUROLOGIC: No: headache, vertigo, paresthesias, weakness ENDOCRINE: No: unexplained weight gain or loss HEMATOLOGIC/LYMPHATIC: No: anemia, easy bleeding, swelling nodes. PE: GENERAL: The patient is in no acute distress. HEAD: Normal with no signs of trauma. EYES: PERRLA, EOMI, sclera anicteric, conjunctiva clear. ENT: Ears normal, nares patent, oropharynx clear without exudates. Moist mucous membranes. NECK: Normal range of motion, supple without lymphadenopathy, JVD, or masses. LUNGS: Breath sounds equal, clear to auscultation bilaterally. No wheezes, and no crackles. HEART:Regular rate and rhythm, normal S1 and S2 without murmur, rub or gallop. ABDOMEN: Soft, nontender, normoactive bowel sounds. No guarding, no rebound. No masses palpable. EXTREMITIES: Normal range of motion, no edema. No clubbing or cyanosis. No erythema, or tenderness. NEUROLOGICAL: Cranial nerves II through XII grossly intact. Normal speech. No focal neurological deficits. MUSCULOSKELETAL: Back non-tender to palpation, no CVA tenderness SKIN: Warm, Dry, normal turgor, no rashes or lesions noted. Past History - Past Medical History Allergies/Adverse Reactions: Allergies Allergy/AdvReac Type Severity Reaction Status Date / Time No Known Allergies Allergy Verified 02/20/18 00:21 Home Medications: Ambulatory Orders Cefpodoxime Proxetil [Vantin -] 100 mg PO BID #14 tablet 02/20/18 Cancer: Yes (WITH METS.) COPD: No DVT: No Hypercholesterolemia: Yes Kidney Stones: Yes (w/ lithotripsy) - Suicide/Smoking/Psychosocial Hx Smoking History: Never smoked Have you smoked in the past 12 months: No Hx Alcohol Use: No Drug/Substance Use Hx: No Substance Use Type: None, Alcohol *Physical Exam - Vital Signs Last Vital Signs Temp Pulse Resp BP Pulse Ox 97.5 F L 77 18 114/53 L 98 02/20/18 00:22 02/20/18 00:22 02/20/18 00:22 02/20/18 00:22 02/20/18 00:22 Medical Decision Making - Medical Decision Making 02/20/18 02:42 Laboratory Tests 02/20/18 02:10 Urine Blood 1+ H Urine Nitrite Negative Ur Leukocyte Esterase 3+ H Urine WBC (Auto) 143 Urine RBC (Auto) 3 Amorphous Urates 3+ Urine Bacteria Many Urine Mucus Rare UA similar to prior UA 02/20/18 03:10 Prior cultures reviewed Pt grew Enterococcus, Klebsiella, Citerobacter (thought to be a contaminant) If not contaminated pt is sensitive for cephalosporin Will discharge on cefpodoxime Pt to follow up with Urology and PMD Return to the ER for fevers or chills Clinical Impression: UTI, repeat presentation 02/20/18 03:17 *DC/Admit/Observation/Transfer Diagnosis at time of Disposition: UTI (urinary tract infection) Qualifiers: Urinary tract infection type: site unspecified Hematuria presence: without hematuria Qualified Code(s): N39.0 - Urinary tract infection, site not specified - Discharge Dispostion Disposition: HOME Condition at time of disposition: Stable Decision to Admit order: No - Prescriptions Prescriptions: Cefpodoxime Proxetil [Vantin -] 100 mg PO BID #14 tablet - Referrals Referrals: Baljeet Garcia MD [Staff Physician] - Chip Malave MD [Staff Physician] - Lucas Mcdaniel MD, MD [Primary Care Provider] - Thaddeus Zheng MD [Staff Physician] - - Patient Instructions Printed Discharge Instructions: DI for Urinary Tract Infection (UTI) - Post Discharge Activity
[2018-02-20 02:25] LABS: URINE APPEARANCE CLOUDY; URINE BILIRUBIN NEGATIVE (<2.0 mg/dL); URINE COLOR YELLOW; URINE GLUCOSE (UA) NEGATIVE (NEGATIVE); URINE KETONE NEGATIVE (NEGATIVE); URINE LEUK ESTERASE 3+ (NEGATIVE); URINE NITRITE NEGATIVE (NEGATIVE); URINE PROTEIN 1+ (NEGATIVE); URINE UROBILINOGEN NEGATIVE mg/dL (0.2-1.0)
[2018-02-20 02:34] LABS: URINE BACTERIA MANY /hpf (NONE SEEN); URINE MUCUS RARE
[2018-02-20 02:35] LABS: AMORP URATES 3+ /hpf (NONE SEEN)
== END 2018-02-20 04:41 | disposition home or self-care (01) ==
LOC: JER 00:16
DX: N39.0 Urinary tract infection, site not specified (principal); B96.89 Other specified bacterial agents as the cause of diseases classified elsewhere; Z85.46 Personal history of malignant neoplasm of prostate; Z85.118 Personal history of other malignant neoplasm of bronchus and lung; Z85.830 Personal history of malignant neoplasm of bone; E78.00 Pure hypercholesterolemia, unspecified; Z87.442 Personal history of urinary calculi
CPT/HCPCS: 81003; 81015; 87086; 87186; 99282-25

== ENCOUNTER 2018-05-09 17:29 | Inpatient (IN) | payer OTHER, BC ==
--- NOTE | 2018-05-09 17:43 | PDOC ---
History of Present Illness - General Stated Complaint: CATHETER ISSUES Time Seen by Provider: 05/09/18 17:41 History Source: Patient, Old Records Exam Limitations: No Limitations - History of Present Illness Initial Comments: HPI: 88 y/o male presenting to [facility] ER complaining of suprabupic tenderness and decreased barger output for the past hour. Pt reports continuous gross hematuria since . Denies fevers, chills, or diaphoresis. Pt has continuous barger in place for urinary retention secondary to metastatic prostate cancer. Is scheduled to have the catheter changed on 05/13/18. Was evaluated at his oncologists office this morning and diagnosed with UTI based on outpatient UA. PCP: Dr. Hines Urology: Dr. 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 Past History - Past Medical History Allergies/Adverse Reactions: Allergies Allergy/AdvReac Type Severity Reaction Status Date / Time No Known Allergies Allergy Verified 02/20/18 00:21 Home Medications: Ambulatory Orders Cefpodoxime Proxetil [Vantin -] 100 mg PO BID #14 tablet 02/20/18 Cancer: Yes (WITH METS.) COPD: No DVT: No Hypercholesterolemia: Yes Kidney Stones: Yes (w/ lithotripsy) - Suicide/Smoking/Psychosocial Hx Smoking History: Never smoked Have you smoked in the past 12 months: No Information on smoking cessation initiated: No Hx Alcohol Use: No Drug/Substance Use Hx: No Substance Use Type: None, Alcohol Review of Systems - Review of Systems Able to Perform ROS?: Yes Comments:: In addition to that documented in the HPI above, the additional ROS was obtained : Constitutional: Denies fevers or chills Eyes: Denies vision changes ENMT: Denies sore throat CV: Denies chest pain Resp: Denies SOB GI: Denies vomiting or diarrhea : Per HPI MSK: Denies recent trauma Skin: Denies new rashes Neuro: Denies new numbness or tingling or weakness Endocrine: Denies polyuria Heme: Denies bruising *Physical Exam - Vital Signs Last Vital Signs Temp Pulse Resp BP Pulse Ox 84 18 128/63 93 L 05/09/18 17:40 05/09/18 17:40 05/09/18 17:40 05/09/18 17:40 - Physical Exam Comments: Constitutional: Thin, elderly male in no acute distress but in obvious discomfort. Found semi-fowlers on hospital bed. Alert and oriented x4. Answered all questions appropriately and completely. Speech was non-labored, non- pressured. Head: Normocephalic. No obvious external signs of trauma. Eyes: Sclerae white. Conjunctiva moist and not injected. EARS: Hearing grossly intact. NOSE: No nasal discharge. Neck: Supple, trachea is midline. Cardiovascular: Regular rate and regular rhythm. No murmur, rubs, clicks, or gallops. Peripheral pulses: Radial pulses full. Respiratory: Breathing unlabored. Equal chest rise and fall. Clear to auscultation bilaterally. No stridor, no wheezing, no rhonchi. Gastrointestinal: abdomen is tender in suprapubic region. No pulsatile masses. No overlying skin lesions or obvious signs of trauma. : Barger catheter in place. Gross hematuria and clot in the tubing and in the bag. Neuro: Alert and oriented. Moving all four extremities spontaneously. Skin: Warm, dry, and intact. Psych: Affect: appropriate. Mood: normal. Moderate Sedation - Procedure Monitoring Vital Signs: Procedure Monitoring Vital Signs Temperature Pulse Rate 84 05/09/18 17:40 Respiratory Rate 18 05/09/18 17:40 Blood Pressure 128/63 05/09/18 17:40 O2 Sat by Pulse Oximetry (%) 93 L 05/09/18 17:40 ED Treatment Course - LABORATORY CBC & Chemistry Diagram: 05/09/18 19:36 05/09/18 19:36 Medical Decision Making - Medical Decision Making *Reviewed vital signs, nursing notes, and prior visit documentation (if available). 88 y/o male complaining of suprapubic tenderness and decreased barger output. Hematuria x10 days. No fevers or chills. Vitals unremarkable for hypotension or tachycardia. Suspect acute pain is secondary to clot(s) occluding catheter. Three way catheter placed and CBI initiated. Unable to pass 22g catheter, successful with 24g. UA revealed gross blood with RBCs but no pyuria, leukocyte esterase, or nitrites. Low suspicion for hemorrhagic cystitis. Ordered single dose of cefazolin given multiple barger insertions. CBC unremarkable for anemia. 20:[address] Malave. Verbally appraised of the pts HPI, ED course, and current plan of management. Will evaluate pt in the morning. No further orders requested. Will admit for large volume gross hematuria likely requiring serial H/H. Will be evaluated by urology. 20:53 Telephone consultation with LEXI Rader. Verbally appraised of the pts HPI, ED course, and current plan of management. Agrees to admit pt to med/surg for Dr. Adams. air launch weapons technician informed MD that pt refused portal CXR. *DC/Admit/Observation/Transfer Diagnosis at time of Disposition: Hematuria, gross - Discharge Dispostion Condition at time of disposition: Stable Decision to Admit order: Yes - Referrals - Patient Instructions - Post Discharge Activity
--- NOTE | 2018-05-09 18:09 | PDOC ---
Attending Attestation - HPI HPI: 05/09/18 18:11 The patient is a 88 year old male, with a significant past medical history of metastatic prostate CA to the lungs, HLD, Kidney stones, indwelling catheter ( placed in October 2017 with chronic suprapubic pain), who presents to the emergency department with increased suprapubic pain in the setting of blocked catheter today. He also reports having bright red blood from the catheter since 04/29/18 and reportedly has an appointment on Saturday with urology. He denies taking anticoagulants. The patient denies chest pain, headache and dizziness. The patient denies fever , chills, nausea, vomit, diarrhea and constipation. He denies blurred or doubled vision. The patient denies dysuria, frequency, urgency. Allergies: NKDA PCP: Dr. Garcia Urology: Dr. Malave Documentation prepared by Masha Torres, acting as medical i d sales for Jonathan Rivera MD <Masha Torres - Last Filed: 05/09/18 18:11> - Resident Resident Name: Danny Rios - ED Attending Attestation I have performed the following: I have examined & evaluated the patient, The case was reviewed & discussed with the resident, I agree w/resident's findings & plan, Exceptions are as noted - Physicial Exam PE: 05/09/18 19:15 Patient is awake and alert, frail-appearing, and in severe distress Normocephalic, atraumatic PERRLA, EOMI, conjunctiva are pale cta rrr Abdomen is soft, soft tissue mass is palpable extending up to the umbilicus likely representing a distended bladder Blood is noted at the penile meatus - Medical Decision Making 05/09/18 19:16 88-year-old male with 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 Will replace the Anaya catheter with a three-way catheter. Will initiate CBI. Will obtain urine for culture and sensitivity. Will obtain CBC and CMP to evaluate for anemia and renal dysfunction. <Jonathan Rivera - Last Filed: 05/09/18 19:17>
[2018-05-09 19:14] LABS: URINE APPEARANCE CLEAR; URINE BILIRUBIN NEGATIVE (<2.0 mg/dL); URINE COLOR RED; URINE GLUCOSE (UA) 2+ (NEGATIVE); URINE KETONE NEGATIVE (NEGATIVE); URINE LEUK ESTERASE NEGATIVE (NEGATIVE); URINE NITRITE NEGATIVE (NEGATIVE); URINE PROTEIN 3+ (NEGATIVE); URINE UROBILINOGEN NEGATIVE mg/dL (0.2-1.0)
[2018-05-09] MEDS ORDERED: ceFAZolin 1 GRAM PREMIX BAG IVPB ONE (19:47)
[2018-05-09] MEDS ORDERED: CEFAZOLIN 1 GM/D5W 1 GM/50 ML BAG ONE (20:07)
[2018-05-09 20:08] LABS: BASO % 0.4 % (0-2.0); EOS % 0.2 % (0-4.5); HEMATOCRIT 34.4 % (35.4-49); HEMOGLOBIN 12.1 GM/dL (11.7-16.9); LYMPH % 3.4 % (8-40); MCH 32.1 pg (25.7-33.7); MEAN CELL VOLUME 91.5 fl (80-96); MEAN PLT VOLUME 7.3 fl (7.5-11.1); MONO % 3.8 % (3.8-10.2); NEUT % 92.2 % (42.8-82.8); PLATELET COUNT 261 K/MM3 (134-434); RBC 3.76 M/mm3 (4.00-5.60); RDW 15.3 % (11.9-15.9); WHITE BLOOD COUNT 9.3 K/mm3 (4.0-10.0)
[2018-05-09 20:26] LABS: INR 1.03 (0.83-1.09); PROTHROMBIN TIME (PATIENT) 12.2 SEC (9.7-13.0)
[2018-05-09 20:29] LABS: ACTIVATED PTT 26.7 SECONDS (25.2-36.5)
[2018-05-09 20:51] LABS: PLATELET ESTIMATE ADEQUATE
[2018-05-09 21:28] LABS: ALBUMIN 3.2 g/dl (3.4-5.0); ALK PHOS 157 U/L (45-117); ANION GAP 11 MMOL/L (8-16); BILIRUBIN,TOTAL 0.6 mg/dL (0.2-1); BLOOD UREA NITROGEN 21 mg/dL (7-18); CHLORIDE 98 mmol/L (98-107); CO2 25 mmol/L (21-32); GLUCOSE,RANDOM 163 mg/dL (74-106); POTASSIUM 4.3 mmol/L (3.5-5.1); SGOT/AST 66 U/L (15-37); SGPT/ALT 19 U/L (13-61); SODIUM 135 mmol/L (136-145); TOT PROT 6.2 g/dl (6.4-8.2)
--- NOTE | 2018-05-09 21:47 | HP ---
Admitting History and Physical - Primary Care Physician PCP: Baljeet Garcia - Admission Chief Complaint: Suprapubic Pain, Hematuria History of Present Illness: This is a 88 y/o man with a past medical history of Metastatic Prostate Ca ( lungs/lumbar vertebrae), HLD, Renal Calculi (Lithotripsy). Who presents to the ED with hematuria since 04/28/18, and suprapubic pain worse today. Patient was at his oncologist's office today and was to start ABX for a UTI from a lab test. Patient reports having decreased urine draining from his barger catheter due to large clot formation. He reports having increased weakness and generalized lumbar pain. Patient reports having chills without fever. Patient denies cough, SOB, CP, palpations, AP, N/V/D, constipation, melena. History Source: Patient, Medical Record Limitations to Obtaining History: No Limitations - Smoking History Smoking history: Never smoked Have you smoked in the past 12 months: No - Alcohol/Substance Use Hx Alcohol Use: No History of Substance Use: reports: None - Social History Usual Living Arrangement: Yes: With Child ADL: Family Assistance History of Recent Travel: No Home Medications - Allergies Allergies/Adverse Reactions: Allergies Allergy/AdvReac Type Severity Reaction Status Date / Time No Known Allergies Allergy Verified 02/20/18 00:21 - Home Medications Home Medications: Ambulatory Orders Cefpodoxime Proxetil [Vantin -] 100 mg PO BID #14 tablet 02/20/18 Family Disease History - Family Disease History Family History: Unable to Obtain Review of Systems - Review of Systems Constitutional: reports: Chills, Loss of Appetite, Weakness Eyes: reports: No Symptoms HENT: reports: No Symptoms Neck: reports: No Symptoms Cardiovascular: reports: Shortness of Breath Respiratory: reports: SOB on Exertion Gastrointestinal: reports: Abdominal Pain (suprapubic) Genitourinary: reports: Hematuria Breasts: reports: No Symptoms Reported Musculoskeletal: reports: Back Pain Integumentary: reports: No Symptoms Neurological: reports: No Symptoms Endocrine: reports: No Symptoms Hematology/Lymphatic: reports: No Symptoms Psychiatric: reports: No Symptoms Physical Examination Vital Signs: Vital Signs Temperature Pulse Rate 84 05/09/18 17:40 Respiratory Rate 18 05/09/18 17:40 Blood Pressure 128/63 05/09/18 17:40 O2 Sat by Pulse Oximetry (%) 93 L 05/09/18 17:40 Constitutional: Yes: Cachectic, Pallor Eyes: Yes: WNL, Conjunctiva Clear, EOM Intact, PERRL HENT: Yes: Atraumatic, Normocephalic, Other (Dry mucous membranes) Neck: Yes: WNL, Supple, Trachea Midline Cardiovascular: Yes: WNL, Regular Rate and Rhythm, S1, S2 Respiratory: Yes: WNL, Regular, CTA Bilaterally Gastrointestinal: Yes: Soft, Tenderness Renal/: Yes: Barger Present (hematuria in tubing and drainage canister) Breast(s): Yes: WNL Musculoskeletal: Yes: Back Pain Edema: Yes Edema: LLE: Trace, RLE: Trace Peripheral Pulses WNL: Yes Neurological: Yes: WNL, Alert, Oriented, Cran Nerves II-XII Intact ...Motor Strength: WNL Psychiatric: Yes: WNL, Alert, Oriented Labs: CBC, BMP 05/09/18 19:36 05/09/18 19:36 Laboratory Results - last 24 hr 05/09/18 05/09/18 05/09/18 19:00 19:36 19:36 WBC 9.3 RBC 3.76 L Hgb 12.1 Hct 34.4 L MCV 91.5 MCH 32.1 MCHC 35.0 RDW 15.3 Plt Count 261 D MPV 7.3 L Absolute Neuts (auto) 8.6 H Total Counted 100 Neutrophils % 92.2 H Neutrophils % (Manual) 88.0 H Band Neutrophils % 3.0 Lymphocytes % 3.4 L D Lymphocytes % (Manual) 4.0 L Monocytes % 3.8 Monocytes % (Manual) 5 Eosinophils % 0.2 D Basophils % 0.4 Nucleated RBC % 0 Platelet Estimate Adequate Platelet Comment No clumping noted PT with INR 12.20 INR 1.03 PTT (Actin FS) 26.7 Sodium Potassium Chloride Carbon Dioxide Anion Gap BUN Creatinine Creat Clearance w eGFR Random Glucose Calcium Total Bilirubin AST ALT Alkaline Phosphatase Total Protein Albumin Urine Color Red Urine Appearance Clear Urine pH 8.0 Ur Specific Skippers 1.014 Urine Protein 3+ H D Urine Glucose (UA) 2+ H Urine Ketones Negative Urine Blood 2+ H Urine Nitrite Negative Urine Bilirubin Negative Urine Urobilinogen Negative Ur Leukocyte Esterase Negative Urine WBC (Auto) 4 Urine RBC (Auto) 3336 Blood Type Antibody Screen 05/09/18 05/09/18 19:36 19:36 WBC RBC Hgb Hct MCV MCH MCHC RDW Plt Count MPV Absolute Neuts (auto) Total Counted Neutrophils % Neutrophils % (Manual) Band Neutrophils % Lymphocytes % Lymphocytes % (Manual) Monocytes % Monocytes % (Manual) Eosinophils % Basophils % Nucleated RBC % Platelet Estimate Platelet Comment PT with INR INR PTT (Actin FS) Sodium 135 L Potassium 4.3 Chloride 98 Carbon Dioxide 25 Anion Gap 11 BUN 21 H Creatinine 1.0 Creat Clearance w eGFR > 60 Random Glucose 163 H Calcium 9.0 Total Bilirubin 0.6 AST 66 H ALT 19 Alkaline Phosphatase 157 H Total Protein 6.2 L Albumin 3.2 L Urine Color Urine Appearance Urine pH Ur Specific Skippers Urine Protein Urine Glucose (UA) Urine Ketones Urine Blood Urine Nitrite Urine Bilirubin Urine Urobilinogen Ur Leukocyte Esterase Urine WBC (Auto) Urine RBC (Auto) Blood Type O POSITIVE Antibody Screen Negative Intake & Output 05/06/18 05/07/18 05/08/18 05/09/18 23:59 23:59 23:59 23:59 Intake Total 4000 Output Total 4025 Balance -25 Weight 52.163 kg Imaging - Results Chest X-ray: Pending EKG: Pending Problem List - Problems (1) Hematuria, gross Assessment/Plan: Likely secondary to Metastatic Prostate vs UTI Barger changed in ED to 3-way CBI started in ED, will continue Appreciate Urology consult Monitor CBC, BMP Monitor vitals Cefazolin given in ED empirically for UTI Will hold off and wait for urine culture, defer to Urology UA-neg Code(s): R31.0 - GROSS HEMATURIA (2) Metastatic malignant neoplasm to prostate Assessment/Plan: s/p RT Consider Oncology consult or f/u in outpatient Appreciate Urology consult Tylenol prn Monitor CBC, BMP Code(s): C79.82 - SECONDARY MALIGNANT NEOPLASM OF GENITAL ORGANS Assessment/Plan This is a 88 y/o man admitted for Hematuria, Metastatic Prostate Ca, Generalized Weakness for further evaluation of their emergent condition. Plan: FEN D51/2NS@42ml/hr Replete lytes prn Soft Diet DVT ppx OOB SCDs Hold AC secondary to Hematuria Code Status: Full Code, HCP- Berna Kennedy Dispo: Requires Inpatient Care Visit type - Emergency Visit Emergency Visit: Yes ED Registration Date: 05/09/18 Care time: The patient presented to the Emergency Department on the above date and was hospitalized for further evaluation of their emergent condition. - New Patient This patient is new to me today: Yes Date on this admission: 05/09/18 - Critical Care Critical Care patient: No
[2018-05-09] MEDS ORDERED: ACETAMINOPHEN 1000 MG/100 ML VIAL (NON FORMULARY) IVPB ONE (21:49)
[2018-05-09] MEDS ORDERED: ACETAMINOPHEN INJECTION 100 ML IVPB ONE (22:07)
[2018-05-09] MEDS: DEXTROSE 5%-0.45% SALINE 1,000 ML IV SCH (22:38)
[2018-05-10 02:01] LABS: BASO % 0.1 % (0-2.0); HEMATOCRIT 30.1 % (35.4-49); HEMOGLOBIN 10.8 GM/dL (11.7-16.9); LYMPH % 1.9 % (8-40); MCH 32.5 pg (25.7-33.7); MCHC 35.8 g/dl (32.0-35.9); MEAN CELL VOLUME 90.8 fl (80-96); MEAN PLT VOLUME 7.5 fl (7.5-11.1); MONO % 4.7 % (3.8-10.2); NEUT % 93.3 % (42.8-82.8); PLATELET COUNT 213 K/MM3 (134-434); RBC 3.31 M/mm3 (4.00-5.60); WHITE BLOOD COUNT 10.3 K/mm3 (4.0-10.0)
[2018-05-10 08:26] LABS: BASO % 0.3 % (0-2.0); HEMATOCRIT 29.5 % (35.4-49); HEMOGLOBIN 9.9 GM/dL (11.7-16.9); MCH 30.5 pg (25.7-33.7); MCHC 33.7 g/dl (32.0-35.9); MEAN CELL VOLUME 90.7 fl (80-96); MEAN PLT VOLUME 7.4 fl (7.5-11.1); MONO % 7.3 % (3.8-10.2); NEUT % 90.4 % (42.8-82.8); PLATELET COUNT 179 K/MM3 (134-434); RBC 3.25 M/mm3 (4.00-5.60); WHITE BLOOD COUNT 9.9 K/mm3 (4.0-10.0)
[2018-05-10 08:43] LABS: INR 1.1 (0.83-1.09)
[2018-05-10 09:00] LABS: ANION GAP 9 MMOL/L (8-16); BLOOD UREA NITROGEN 21 mg/dL (7-18); CALCIUM 8.1 mg/dL (8.5-10.1); CHLORIDE 100 mmol/L (98-107); CO2 24 mmol/L (21-32); CREATININE 0.9 mg/dL (0.55-1.3); GLUCOSE,RANDOM 113 mg/dL (74-106); POTASSIUM 3.9 mmol/L (3.5-5.1); SODIUM 133 mmol/L (136-145)
--- NOTE | 2018-05-10 09:31 | CON.GU ---
Consult - History of Present Illness History of Present Illness: 88 yo male well known to me with metastatic castrate resistant prostate cancer who has refused treatment with Zytiga, Xtandi or chemo. Had recent XRT to bone. Has been in urinary retention for over a year and managed with indwelling barger that gets changed monthly. Now admitted with gross hematuria and clot retention. 3 way barger inserted in ER and pt currently on CBI - Alcohol/Substance Use Hx Alcohol Use: No History of Substance Use: reports: None - Smoking History Smoking history: Never smoked Have you smoked in the past 12 months: No - Social History ADL: Family Assistance History of Recent Travel: No Home Medications - Allergies Allergies/Adverse Reactions: Allergies Allergy/AdvReac Type Severity Reaction Status Date / Time No Known Allergies Allergy Verified 02/20/18 00:21 - Home Medications Home Medications: Ambulatory Orders Cefpodoxime Proxetil [Vantin -] 100 mg PO BID #14 tablet 02/20/18 Review of Systems - Review of Systems Genitourinary: reports: Hematuria Physical Exam- Vital Signs: Vital Signs Temperature 98.2 F 05/10/18 08:20 Pulse Rate 86 05/10/18 08:20 Respiratory Rate 16 05/10/18 08:20 Blood Pressure 98/60 05/10/18 08:20 O2 Sat by Pulse Oximetry (%) 93 L 05/09/18 20:57 Renal/: Yes: Barger Present, Hematuria Labs: CBC, BMP 05/10/18 07:30 05/10/18 07:30 Problem List - Problems (1) Hematuria, gross Assessment/Plan: cont CBI, have asked Hematology to see re evaluation for Amicar, if fails to clearwith conservative management, then will need cystoscopy/fulguration Code(s): R31.0 - GROSS HEMATURIA (2) Metastatic malignant neoplasm to prostate Code(s): C79.82 - SECONDARY MALIGNANT NEOPLASM OF GENITAL ORGANS
[2018-05-10] MEDS: CEFAZOLIN 1 GM/D5W 1 GM/50 ML BAG IVPB SCH ×2 (09:38→17:14)
[2018-05-10] MEDS: DEXTROSE 5%-0.45% SALINE 1,000 ML IV SCH (09:38)
--- NOTE | 2018-05-10 12:22 | PN ---
Progress Note, Physician Chief Complaint: NOTES REVIEWED PATIENT WITH MALIGNANT PROSTATE CA REFUSED CHEMO/OTHER TX AR PER UROLOGY HERE WITH GROSS HEMATURIA - Current Medication List Current Medications: Active Medications Dextrose/Sodium Chloride (D5-1/2ns -) 1,000 mls @ 42 mls/hr IV ASDIR EDILBERTO Last Admin: 05/10/18 09:38 Dose: 42 mls/hr Cefazolin Sodium (Ancef 1 Gm Premixed Ivpb -) 1 gm in 50 mls @ 100 mls/hr IVPB Q8H-IV EDILBERTO Last Admin: 05/10/18 09:38 Dose: 100 mls/hr - Objective Vital Signs: Vital Signs Temperature 98.2 F 05/10/18 08:20 Pulse Rate 86 05/10/18 08:20 Respiratory Rate 16 05/10/18 08:20 Blood Pressure 98/60 05/10/18 08:20 O2 Sat by Pulse Oximetry (%) 93 L 05/09/18 20:57 Constitutional: Yes: Mild Distress Eyes: Yes: WNL HENT: Yes: WNL Neck: Yes: WNL Cardiovascular: Yes: Regular Rate and Rhythm Respiratory: Yes: Diminished Gastrointestinal: Yes: Soft Genitourinary: Yes: Anaya Present, Other Musculoskeletal: Yes: Muscle Weakness Extremities: Yes: Other Edema: No Integumentary: Yes: Other Wound/Incision: Yes: Other Neurological: Yes: Loss of Sensation, Pre-Existing Deficit, Unsteady Gait, Weakness ...Motor Strength: LLE, RLE Psychiatric: Yes: WNL Labs: CBC, BMP 05/10/18 07:30 05/10/18 07:30 INR, PTT INR 1.10 (0.83-1.09) H 05/10/18 07:30 Problem List - Problems (1) Hematuria, gross Code(s): R31.0 - GROSS HEMATURIA (2) Metastatic malignant neoplasm to prostate Code(s): C79.82 - SECONDARY MALIGNANT NEOPLASM OF GENITAL ORGANS (3) History of dysphagia Code(s): Z87.19 - PERSONAL HISTORY OF OTHER DISEASES OF THE DIGESTIVE SYSTEM (4) Weakness Code(s): R53.1 - WEAKNESS Assessment/Plan IV ABX CBI PAIN CONTROL PT EVAL AWAIT CULTURES PAIN CONTROL F/U APPRECIATED
--- NOTE | 2018-05-10 12:45 | EKG ---
Test Reason : Blood Pressure : / mmHG Vent. Rate : 085 BPM Atrial Rate : 085 BPM P-R Int : 146 ms QRS Dur : 118 ms QT Int : 468 ms P-R-T Axes : 000 -55 047 degrees QTc Int : 556 ms SINUS RHYTHM WITH PREMATURE ATRIAL COMPLEXES RIGHT BUNDLE BRANCH BLOCK LEFT ANTERIOR FASCICULAR BLOCK BIFASCICULAR BLOCK ABNORMAL ECG Confirmed by MD CAMI, SHANTEL ([id number]) on 05/10/2018 12:45:13 PM Referred By: Confirmed By:SHANTEL ALMANZA MD
[2018-05-11] MEDS: CEFAZOLIN 1 GM/D5W 1 GM/50 ML BAG IVPB SCH ×3 (01:53→17:04)
--- NOTE | 2018-05-11 07:21 | PN ---
Progress Note (short form) - Note Progress Note: afebrile urine pink tinged on CBI abd soft await urine culture cont CBI Problem List - Problems (1) Hematuria, gross Code(s): R31.0 - GROSS HEMATURIA (2) Metastatic malignant neoplasm to prostate Code(s): C79.82 - SECONDARY MALIGNANT NEOPLASM OF GENITAL ORGANS
[2018-05-11] MEDS: DEXTROSE 5%-0.45% SALINE 1,000 ML IV SCH (09:30)
[2018-05-11] MEDS ORDERED: ALBUTEROL SO4 2.5/IPRATROPIUM 0.5 INH SOL 3 ML VIAL.NEB. NEB PRN (12:52)
[2018-05-11] MEDS ORDERED: BENZOCAINE/MENTH/CETYLPYRD CL 1 EACH LOZENGE MM PRN (12:52)
--- NOTE | 2018-05-11 12:54 | PN ---
Progress Note, Physician Chief Complaint: AWAKE ALERT C/O DRY COUGH - Current Medication List Current Medications: Active Medications Acetaminophen (Tylenol -) 650 mg PO Q6H PRN PRN Reason: FEVER Dextrose/Sodium Chloride (D5-1/2ns -) 1,000 mls @ 42 mls/hr IV ASDIR EDILBERTO Last Admin: 05/11/18 09:30 Dose: 42 mls/hr Cefazolin Sodium (Ancef 1 Gm Premixed Ivpb -) 1 gm in 50 mls @ 100 mls/hr IVPB Q8H-IV EDILBERTO Last Admin: 05/11/18 09:30 Dose: 100 mls/hr - Objective Vital Signs: Vital Signs Temperature 98.8 F 05/11/18 08:00 Pulse Rate 90 05/11/18 08:00 Respiratory Rate 14 05/11/18 08:00 Blood Pressure 106/50 L 05/11/18 08:00 O2 Sat by Pulse Oximetry (%) 95 05/11/18 09:00 Constitutional: Yes: Mild Distress Eyes: Yes: WNL HENT: Yes: WNL Neck: Yes: WNL Cardiovascular: Yes: WNL Respiratory: Yes: Diminished Gastrointestinal: Yes: Soft Genitourinary: Yes: Anaya Present Musculoskeletal: Yes: Muscle Weakness Edema: No Integumentary: Yes: WNL Wound/Incision: Yes: Clean/Dry Neurological: Yes: Pre-Existing Deficit, Weakness ...Motor Strength: LLE, RLE Psychiatric: Yes: WNL Labs: CBC, BMP 05/10/18 07:30 INR, PTT INR 1.10 (0.83-1.09) H 05/10/18 07:30 Problem List - Problems (1) Hematuria, gross Code(s): R31.0 - GROSS HEMATURIA (2) Metastatic malignant neoplasm to prostate Code(s): C79.82 - SECONDARY MALIGNANT NEOPLASM OF GENITAL ORGANS (3) History of dysphagia Code(s): Z87.19 - PERSONAL HISTORY OF OTHER DISEASES OF THE DIGESTIVE SYSTEM (4) Weakness Code(s): R53.1 - WEAKNESS Assessment/Plan WILL NEED TO DECIDE ON TREATMENT D/W ONCOLOGY TO GIVE OPTIONS FOR PROSTATE CA NEBS/INCENTIVE SPIROMETRY/ROBITUSSIN CBI CLEAR CHECK LABS TRANSFUSE PRBC NEEDED
[2018-05-11] MEDS: PHENOL 177 ML SPRAY BOTTLE MM PRN ×2 (13:16→21:53)
[2018-05-11 13:26] VITALS: BMI 19.2
[2018-05-11 14:08] LABS: HEMATOCRIT 27.7 % (35.4-49); HEMOGLOBIN 9.2 GM/dL (11.7-16.9); MCH 30.6 pg (25.7-33.7); MCHC 33.1 g/dl (32.0-35.9); MEAN CELL VOLUME 92.4 fl (80-96); MEAN PLT VOLUME 7.9 fl (7.5-11.1); PLATELET COUNT 152 K/MM3 (134-434); WHITE BLOOD COUNT 8.1 K/mm3 (4.0-10.0)
[2018-05-11] MEDS: ACETAMINOPHEN 325 MG TABLET (FP) PO PRN (16:40)
--- NOTE | 2018-05-11 17:31 | CONSULT ---
Consult Consult Specialty:: Hematology Referred by:: Urology Reason for Consultation:: Hematuria - use of Amicar - Alcohol/Substance Use Hx Alcohol Use: No History of Substance Use: reports: None - Smoking History Smoking history: Never smoked Have you smoked in the past 12 months: No - Social History ADL: Family Assistance History of Recent Travel: No Home Medications - Allergies Allergies/Adverse Reactions: Allergies Allergy/AdvReac Type Severity Reaction Status Date / Time No Known Allergies Allergy Verified 02/20/18 00:21 - Home Medications Home Medications: Ambulatory Orders Cefpodoxime Proxetil [Vantin -] 100 mg PO BID #14 tablet 02/20/18 Physical Exam Vital Signs: Vital Signs Temperature 102.5 F H 05/11/18 16:35 Pulse Rate 90 05/11/18 08:00 Respiratory Rate 14 05/11/18 08:00 Blood Pressure 106/50 L 05/11/18 08:00 O2 Sat by Pulse Oximetry (%) 95 05/11/18 09:00 Labs: CBC, BMP 05/11/18 07:00 05/10/18 07:30 Assessment/Plan Metastatic resistant prostate cancer, (skeletal involvement - s/p RTX in past), reliant on catheterization, presents with gross hematuria (?UTI). Currently improved with empiric Abics, and CBI. Use of an antifibrinolytic agent such as Amicar would not be unreasonable. Since its use has been associated with thrombosis it should only be used if current means fail to satisfactorily control ongoing hemorrhage. Use of Amicar is not recommended in hematuria of upper urinary tract origin - it is assumed that his bleeding his vesical. Oral Amicar, dosed at 2g loading dose, followed by 1g every 8 hours would be a reasonable regimen. Unclear why patient has refused further systemic treatment for his MRPC - informs me that he cannot use Zytiga because of his "angina" - unclear to me what the concern is - suggest issue is revisited.
--- NOTE | 2018-05-11 17:33 | PROC ---
Procedure Note Procedure: 05/11@5:25pm Episodic Note: Called by RN patient has a fever of 102.5. Chart and labs reviewed-normal WBC today. SBP in the 100's. Patient is currently on IV Ancef 1 gm every 8 hours. Will check STAT CXR, blood cultures, lactic acid, procalcitonin and CBC. Unable to obtain UA and culture due to CBI. Infectious Diseases consulted .
--- NOTE | 2018-05-11 19:23 | CON.ID ---
Consult - History of Present Illness History of Present Illness: 88 y.o. 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 He was started on CBI by Urology for clots that were noted. Pt had been c/o some suprapubic tenderness but denied fever or chills. Was started on Ancef empirically. No leukoyctosis was found but today had a fever of > 102F. Currently pt is alert but weak. States he has a chronic cough but denies chest pain, abd pain/n/v/d, headache, or any other specific symptoms. - History Source History Provided By: Patient Limitations to Obtaining History: No Limitations - Past Medical History Renal/: Yes: Renal Calculi (s/p lithotripsy) Heme/Onc: Yes: Cancer, Other (Metastatic Prostate CA (lungs/spine)) - Alcohol/Substance Use Hx Alcohol Use: No History of Substance Use: reports: None - Smoking History Smoking history: Never smoked Have you smoked in the past 12 months: No - Social History ADL: Family Assistance History of Recent Travel: No Home Medications - Allergies Allergies/Adverse Reactions: Allergies Allergy/AdvReac Type Severity Reaction Status Date / Time No Known Allergies Allergy Verified 02/20/18 00:21 - Home Medications Home Medications: Ambulatory Orders Cefpodoxime Proxetil [Vantin -] 100 mg PO BID #14 tablet 02/20/18 Review of Systems - Review of Systems Constitutional: reports: Fever, Weakness Eyes: reports: No Symptoms HENT: reports: No Symptoms Neck: reports: No Symptoms Cardiovascular: reports: No Symptoms Respiratory: reports: Cough Gastrointestinal: reports: No Symptoms Genitourinary: reports: Other (hematuria resolved, on CBI) Integumentary: reports: No Symptoms Neurological: reports: Weakness Hematology/Lymphatic: reports: No Symptoms Psychiatric: reports: No Symptoms Physical Exam Vital Signs: Vital Signs Temperature 99.3 F 05/11/18 18:31 Pulse Rate 90 05/11/18 08:00 Respiratory Rate 14 05/11/18 08:00 Blood Pressure 106/50 L 05/11/18 08:00 O2 Sat by Pulse Oximetry (%) 95 05/11/18 09:00 Constitutional: Yes: No Distress, Calm Eyes: Yes: Conjunctiva Clear HENT: Yes: Atraumatic, Normocephalic Neck: Yes: Supple Cardiovascular: Yes: Regular Rate and Rhythm Respiratory: Yes: Diminished Gastrointestinal: Yes: Normal Bowel Sounds, Soft Renal/: Yes: Barger Present (clear, yellow urine), Other (CBI) Extremities: Yes: WNL Edema: No Integumentary: Yes: WNL Neurological: Yes: Alert, Weakness Psychiatric: Yes: Alert Labs: CBC, BMP 05/11/18 07:00 05/10/18 07:30 Laboratory Tests 05/09/18 05/09/18 05/09/18 19:00 19:36 19:36 WBC 9.3 RBC 3.76 L Hgb 12.1 Hct 34.4 L MCV 91.5 MCH 32.1 MCHC 35.0 RDW 15.3 Plt Count 261 D MPV 7.3 L Absolute Neuts (auto) 8.6 H Total Counted 100 Neutrophils % 92.2 H Neutrophils % (Manual) 88.0 H Band Neutrophils % 3.0 Lymphocytes % 3.4 L D Lymphocytes % (Manual) 4.0 L Monocytes % 3.8 Monocytes % (Manual) 5 Eosinophils % 0.2 D Basophils % 0.4 Nucleated RBC % 0 Platelet Estimate Adequate Platelet Comment No clumping noted PT with INR 12.20 INR 1.03 PTT (Actin FS) 26.7 Sodium Potassium Chloride Carbon Dioxide Anion Gap BUN Creatinine Creat Clearance w eGFR Random Glucose Calcium Total Bilirubin AST ALT Alkaline Phosphatase Total Protein Albumin Urine Color Red Urine Appearance Clear Urine pH 8.0 Ur Specific [place] 1.014 Urine Protein 3+ H D Urine Glucose (UA) 2+ H Urine Ketones Negative Urine Blood 2+ H Urine Nitrite Negative Urine Bilirubin Negative Urine Urobilinogen Negative Ur Leukocyte Esterase Negative Urine WBC (Auto) 4 Urine RBC (Auto) 3336 Blood Type Antibody Screen 05/09/18 05/09/18 05/10/18 19:36 19:36 01:45 WBC 10.3 H RBC 3.31 L Hgb 10.8 L Hct 30.1 L MCV 90.8 MCH 32.5 MCHC 35.8 RDW 15.0 Plt Count 213 MPV 7.5 Absolute Neuts (auto) 9.6 H Total Counted 100 Neutrophils % 93.3 H Neutrophils % (Manual) 91.0 H Band Neutrophils % 6.0 Lymphocytes % 1.9 L D Lymphocytes % (Manual) 1.0 L D Monocytes % 4.7 Monocytes % (Manual) 2 L Eosinophils % 0.0 D Basophils % 0.1 Nucleated RBC % 0 Platelet Estimate Platelet Comment PT with INR INR PTT (Actin FS) Sodium 135 L Potassium 4.3 Chloride 98 Carbon Dioxide 25 Anion Gap 11 BUN 21 H Creatinine 1.0 Creat Clearance w eGFR > 60 Random Glucose 163 H Calcium 9.0 Total Bilirubin 0.6 AST 66 H ALT 19 Alkaline Phosphatase 157 H Total Protein 6.2 L Albumin 3.2 L Urine Color Urine Appearance Urine pH Ur Specific [place] Urine Protein Urine Glucose (UA) Urine Ketones Urine Blood Urine Nitrite Urine Bilirubin Urine Urobilinogen Ur Leukocyte Esterase Urine WBC (Auto) Urine RBC (Auto) Blood Type O POSITIVE Antibody Screen Negative 05/10/18 05/10/18 05/10/18 07:30 07:30 07:30 WBC 9.9 RBC 3.25 L Hgb 9.9 L Hct 29.5 L MCV 90.7 MCH 30.5 MCHC 33.7 RDW 15.0 Plt Count 179 MPV 7.4 L Absolute Neuts (auto) 8.9 H Total Counted Neutrophils % 90.4 H Neutrophils % (Manual) Band Neutrophils % Lymphocytes % 2.0 L Lymphocytes % (Manual) Monocytes % 7.3 Monocytes % (Manual) Eosinophils % 0.0 Basophils % 0.3 Nucleated RBC % 0 Platelet Estimate Platelet Comment PT with INR 13.00 INR 1.10 H PTT (Actin FS) Sodium 133 L Potassium 3.9 Chloride 100 Carbon Dioxide 24 Anion Gap 9 BUN 21 H Creatinine 0.9 Creat Clearance w eGFR > 60 Random Glucose 113 H Calcium 8.1 L Total Bilirubin AST ALT Alkaline Phosphatase Total Protein Albumin Urine Color Urine Appearance Urine pH Ur Specific [place] Urine Protein Urine Glucose (UA) Urine Ketones Urine Blood Urine Nitrite Urine Bilirubin Urine Urobilinogen Ur Leukocyte Esterase Urine WBC (Auto) Urine RBC (Auto) Blood Type Antibody Screen 05/11/18 07:00 WBC 8.1 RBC 3.00 L Hgb 9.2 L Hct 27.7 L MCV 92.4 MCH 30.6 MCHC 33.1 RDW 15.0 Plt Count 152 MPV 7.9 Absolute Neuts (auto) Total Counted Neutrophils % Neutrophils % (Manual) Band Neutrophils % Lymphocytes % Lymphocytes % (Manual) Monocytes % Monocytes % (Manual) Eosinophils % Basophils % Nucleated RBC % Platelet Estimate Platelet Comment PT with INR INR PTT (Actin FS) Sodium Potassium Chloride Carbon Dioxide Anion Gap BUN Creatinine Creat Clearance w eGFR Random Glucose Calcium Total Bilirubin AST ALT Alkaline Phosphatase Total Protein Albumin Urine Color Urine Appearance Urine pH Ur Specific [place] Urine Protein Urine Glucose (UA) Urine Ketones Urine Blood Urine Nitrite Urine Bilirubin Urine Urobilinogen Ur Leukocyte Esterase Urine WBC (Auto) Urine RBC (Auto) Blood Type Antibody Screen Problem List - Problems (1) Fever Code(s): R50.9 - FEVER, UNSPECIFIED (2) Hematuria, gross Code(s): R31.0 - GROSS HEMATURIA (3) Metastatic malignant neoplasm to prostate Code(s): C79.82 - SECONDARY MALIGNANT NEOPLASM OF GENITAL ORGANS (4) UTI (urinary tract infection) Code(s): N39.0 - URINARY TRACT INFECTION, SITE NOT SPECIFIED Qualifiers: Urinary tract infection type: site unspecified Hematuria presence: without hematuria Qualified Code(s): N39.0 - Urinary tract infection, site not specified (5) Urinary catheter insertion/adjustment/removal Code(s): Z46.6 - ENCOUNTER FOR FITTING AND ADJUSTMENT OF URINARY DEVICE (6) Weakness Code(s): R53.1 - WEAKNESS Assessment/Plan 88 y.o. 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 Noted to have clots in urine and started on CBI. Today found to have fever of 102.4F Fever Hematuria/urinary retention Chronic indwelling barger Metastatic Prostate CA -- d/c Ancef -- would suggest start Zosyn empirically for now, monitor temperature curve/ vitals -- recommend chest xray but patient states he has a chronic cough and is refusing -- Blood cultures and lactic acid level sent - follow up results -- Urine culture sent contaminated, unable to repeat due to CBI Pt is currently without leukocytosis, without obvious distress Will follow Thank you
[2018-05-11] MEDS ORDERED: PIPERACILLIN/TAZOBACTAM 3.375 GM VIAL IVPB ONE (20:10)
[2018-05-11] MEDS ORDERED: DEXTROSE 5%-WATER - 50 ML IVPB ONE (20:10)
[2018-05-11] MEDS: PIPERACILLIN/TAZOB 3.375 GM 3.375 GM in DEXTROSE 5%-WATER - 50 ML IVPB SCH (20:25)
[2018-05-11] MEDS: guaiFENesin/CODEINE 5 ML UNIT-DOSE CUPS PO PRN (23:17)
[2018-05-12] MEDS ORDERED: DEXTROSE 5%-WATER - 50 ML IVPB ONE ×3 (02:34→16:48)
[2018-05-12] MEDS ORDERED: PIPERACILLIN/TAZOBACTAM 3.375 GM VIAL IVPB ONE ×3 (02:34→16:48)
[2018-05-12] MEDS: PIPERACILLIN/TAZOB 3.375 GM 3.375 GM in DEXTROSE 5%-WATER - 50 ML IVPB SCH ×3 (02:38→17:16)
[2018-05-12] MEDS ORDERED: PT OWN MED DRAWER 7, Y5N ONE (06:55)
[2018-05-12 08:08] LABS: ANION GAP 7 MMOL/L (8-16); BLOOD UREA NITROGEN 21 mg/dL (7-18); CALCIUM 7.6 mg/dL (8.5-10.1); CHLORIDE 101 mmol/L (98-107); CO2 26 mmol/L (21-32); CREATININE 1.2 mg/dL (0.55-1.3); GLUCOSE,RANDOM 131 mg/dL (74-106); POTASSIUM 3.6 mmol/L (3.5-5.1); SODIUM 135 mmol/L (136-145)
[2018-05-12 08:21] LABS: HEMATOCRIT 25.2 % (35.4-49); MCH 32.5 pg (25.7-33.7); MCHC 35.7 g/dl (32.0-35.9); MEAN CELL VOLUME 90.9 fl (80-96); MEAN PLT VOLUME 7.9 fl (7.5-11.1); PLATELET COUNT 159 K/MM3 (134-434); RBC 2.77 M/mm3 (4.00-5.60); WHITE BLOOD COUNT 6.9 K/mm3 (4.0-10.0)
[2018-05-12] MEDS: guaiFENesin/CODEINE 5 ML UNIT-DOSE CUPS PO PRN ×2 (10:07→22:53)
--- NOTE | 2018-05-12 11:24 | PN ---
Progress Note, Physician Chief Complaint: Hematuria Metastatic disease History of Present Illness: -Started on Zosyn by ID refuses CXR Started on Amicar UC contaminated BC pending Febrile overnight - Current Medication List Current Medications: Active Medications Acetaminophen (Tylenol -) 650 mg PO Q6H PRN PRN Reason: FEVER Last Admin: 05/11/18 16:40 Dose: 650 mg Albuterol/Ipratropium (Duoneb -) 1 amp NEB Q6H PRN PRN Reason: SHORTNESS OF BREATH Benzocaine/Menthol (Cepacol Lozenge -) 1 each MM PRN PRN PRN Reason: SORE THROAT Guaifenesin/Codeine Phosphate (Robitussin Ac -) 5 ml PO BID PRN PRN Reason: COUGH Last Admin: 05/12/18 10:07 Dose: 5 ml Dextrose/Sodium Chloride (D5-1/2ns -) 1,000 mls @ 42 mls/hr IV ASDIR EDILBERTO Last Admin: 05/11/18 09:30 Dose: 42 mls/hr Piperacillin Sod/Tazobactam (Sod 3.375 gm/ Dextrose) 50 mls @ 100 mls/hr IVPB Q8H-IV EDILBERTO; Protocol Last Admin: 05/12/18 10:07 Dose: 100 mls/hr Phenol/Menthol (Chloraseptic -) 1 spray MM Q6HPO PRN PRN Reason: SORE THROAT Last Admin: 05/11/18 21:53 Dose: 1 spray - Objective Vital Signs: Vital Signs Temperature 98.0 F 05/12/18 09:59 Pulse Rate 78 05/12/18 09:59 Respiratory Rate 20 05/12/18 09:59 Blood Pressure 102/57 L 05/12/18 09:59 O2 Sat by Pulse Oximetry (%) 95 05/11/18 21:00 Constitutional: Yes: No Distress, Calm, Cachectic Cardiovascular: Yes: Regular Rate and Rhythm Respiratory: Yes: Regular Gastrointestinal: Yes: Normal Bowel Sounds, Soft Genitourinary: Yes: Anaya Present Musculoskeletal: Yes: Muscle Weakness Extremities: Yes: WNL Edema: No Peripheral Pulses WNL: Yes Neurological: Yes: Alert, Oriented Psychiatric: Yes: Alert, Oriented Labs: CBC, BMP 05/12/18 07:00 05/12/18 07:00 INR, PTT INR 1.10 (0.83-1.09) H 05/10/18 07:30 Problem List - Problems (1) Fever Assessment/Plan: -benefits vs risks explained for CXR-Pt has agreed -IV abx -ID on board -Pulmonary consulted -Tylenol for fever >100.0F Code(s): R50.9 - FEVER, UNSPECIFIED (2) Hematuria, gross Assessment/Plan: -Seen by Urology -CBI running clear Code(s): R31.0 - GROSS HEMATURIA (3) Metastatic malignant neoplasm to prostate Code(s): C79.82 - SECONDARY MALIGNANT NEOPLASM OF GENITAL ORGANS (4) Anemia Assessment/Plan: -H/H stabilized after initiation of Amicar -iron profile pending -monitor trend -Seen by hematology Code(s): D64.9 - ANEMIA, UNSPECIFIED Assessment/Plan see problem list Physical therapy
--- NOTE | 2018-05-12 12:19 | CONSULT ---
Consult - text type - Consultation Consultation Note: Renal Consult for SUKHI/CKD This is a 88 y.o. 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 Pt reports having gross hematuria prior to admission, now improved s/p CBI. Was never told that he had renal dysfunction. No NSAID use. No recent contrast exposure. Reports having flank pain. PMhx: as above Allergies: NKDA Family Hx: NC Social Hx: No T/A/D ROS: as per HPI Home Medications Medication Instructions Recorded Cefpodoxime Proxetil [Vantin -] 100 mg PO BID #14 tablet 02/20/18 Vital Signs Temperature 98.0 F 05/12/18 09:59 Pulse Rate 78 05/12/18 09:59 Respiratory Rate 20 05/12/18 09:59 Blood Pressure 102/57 L 05/12/18 09:59 O2 Sat by Pulse Oximetry (%) 95 05/11/18 21:00 Intake & Output 05/09/18 05/10/18 05/11/18 05/12/18 23:59 23:59 23:59 23:59 Intake Total 33991 9100 00060 87929 Output Total 4025 82408 73496 6200 Balance 6360 -4500 3410 5500 Weight 59.194 kg 58.967 kg NAD awake and alert elderly male RRR Dec BS, no overt rales soft NT/ND No Le edema barger in place with clear urine CBC, BMP 05/12/18 07:00 05/12/18 07:00 Laboratory Tests 05/09/18 05/09/18 05/10/18 19:00 19:36 07:30 Creatinine 1.0 0.9 Lactic Acid Calcium Urine Protein 3+ H D Urine Ketones Negative Urine Blood 2+ H Urine WBC (Auto) 4 Urine RBC (Auto) 3336 05/11/18 05/12/18 18:00 07:00 Creatinine 1.2 Lactic Acid 2.6 H* Calcium 7.6 L Urine Protein Urine Ketones Urine Blood Urine WBC (Auto) Urine RBC (Auto) Current Medications Acetaminophen (Tylenol -) 650 mg PO Q6H PRN PRN Reason: FEVER Last Admin: 05/11/18 16:40 Dose: 650 mg Albuterol/Ipratropium (Duoneb -) 1 amp NEB Q6H PRN PRN Reason: SHORTNESS OF BREATH Benzocaine/Menthol (Cepacol Lozenge -) 1 each MM PRN PRN PRN Reason: SORE THROAT Guaifenesin/Codeine Phosphate (Robitussin Ac -) 5 ml PO BID PRN PRN Reason: COUGH Last Admin: 05/12/18 10:07 Dose: 5 ml Dextrose/Sodium Chloride (D5-1/2ns -) 1,000 mls @ 42 mls/hr IV ASDIR EDILBERTO Last Admin: 05/11/18 09:30 Dose: 42 mls/hr Piperacillin Sod/Tazobactam (Sod 3.375 gm/ Dextrose) 50 mls @ 100 mls/hr IVPB Q8H-IV EDILBERTO; Protocol Last Admin: 05/12/18 10:07 Dose: 100 mls/hr Phenol/Menthol (Chloraseptic -) 1 spray MM Q6HPO PRN PRN Reason: SORE THROAT Last Admin: 05/11/18 21:53 Dose: 1 spray 88 y.o. 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 mild CKD #Hematuria #Prostate Cancer #Anemia #Lactic acidosis Renal function stable thus far would continue to trend BUN/Cr while inpatient Check US of the kidney Continue IVF, but change to NS give lactic acidosis and marginal BP Urology follow up Trend lactic acid to normal trend H/H, check iron profile no urgent indication for transfusion Thank you Will follow Raúl Santana DO
[2018-05-12] MEDS: SODIUM CHLORIDE 1,000 ML IV SCH (12:58)
--- NOTE | 2018-05-12 13:17 | PN ---
Progress Note (short form) - Note Progress Note: afebrile urine clear on CBI abd soft hold CBI Problem List - Problems (1) Hematuria, gross Code(s): R31.0 - GROSS HEMATURIA (2) Metastatic malignant neoplasm to prostate Code(s): C79.82 - SECONDARY MALIGNANT NEOPLASM OF GENITAL ORGANS
--- NOTE | 2018-05-12 13:21 | PN ---
Progress Note, Physician History of Present Illness: coughing a lot seems has refused xray chest hematuria has resolved febrile overnight - Current Medication List Current Medications: Active Medications Acetaminophen (Tylenol -) 650 mg PO Q6H PRN PRN Reason: FEVER Last Admin: 05/11/18 16:40 Dose: 650 mg Albuterol/Ipratropium (Duoneb -) 1 amp NEB Q6H PRN PRN Reason: SHORTNESS OF BREATH Benzocaine/Menthol (Cepacol Lozenge -) 1 each MM PRN PRN PRN Reason: SORE THROAT Guaifenesin/Codeine Phosphate (Robitussin Ac -) 5 ml PO BID PRN PRN Reason: COUGH Last Admin: 05/12/18 10:07 Dose: 5 ml Piperacillin Sod/Tazobactam (Sod 3.375 gm/ Dextrose) 50 mls @ 100 mls/hr IVPB Q8H-IV EDILBERTO; Protocol Last Admin: 05/12/18 10:07 Dose: 100 mls/hr Sodium Chloride (Normal Saline -) 1,000 mls @ 75 mls/hr IV ASDIR EDILBERTO Last Admin: 05/12/18 12:58 Dose: 75 mls/hr Phenol/Menthol (Chloraseptic -) 1 spray MM Q6HPO PRN PRN Reason: SORE THROAT Last Admin: 05/11/18 21:53 Dose: 1 spray - Objective Vital Signs: Vital Signs Temperature 98.0 F 05/12/18 09:59 Pulse Rate 78 05/12/18 09:59 Respiratory Rate 20 05/12/18 09:59 Blood Pressure 102/57 L 05/12/18 09:59 O2 Sat by Pulse Oximetry (%) 95 05/11/18 21:00 Constitutional: Yes: Calm, Mild Distress Cardiovascular: Yes: S1, S2 Respiratory: Yes: Cough, On Nasal O2, Rhonchi Gastrointestinal: Yes: Normal Bowel Sounds, Soft Genitourinary: Yes: Barger Present, Other (cbi milo now) Musculoskeletal: Yes: WNL Extremities: Yes: WNL Neurological: Yes: Alert, Oriented Psychiatric: Yes: Alert, Oriented Labs: CBC, BMP 05/12/18 07:00 05/12/18 07:00 INR, PTT INR 1.10 (0.83-1.09) H 05/10/18 07:30 Assessment/Plan Problem List - Problems (1) Fever Code(s): R50.9 - FEVER, UNSPECIFIED (2) Hematuria, gross Code(s): R31.0 - GROSS HEMATURIA (3) Metastatic malignant neoplasm to prostate Code(s): C79.82 - SECONDARY MALIGNANT NEOPLASM OF GENITAL ORGANS (4) UTI (urinary tract infection) Code(s): N39.0 - URINARY TRACT INFECTION, SITE NOT SPECIFIED Qualifiers: Urinary tract infection type: site unspecified Hematuria presence: without hematuria Qualified Code(s): N39.0 - Urinary tract infection, site not specified (5) Urinary catheter insertion/adjustment/removal Code(s): Z46.6 - ENCOUNTER FOR FITTING AND ADJUSTMENT OF URINARY DEVICE (6) Weakness Code(s): R53.1 - WEAKNESS Assessment/Plan 88 y.o. 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 Noted to have clots in urine and started on CBI. Today found to have fever of 102.4F Fever Hematuria/urinary retention Chronic indwelling barger Metastatic Prostate CA continue zosyn consider repeating urine if continues to spike fever await for blood cx reports xray chest if he allows rest as per the team
--- NOTE | 2018-05-12 14:12 | CON.PULM ---
Consult Consult Specialty:: PULM/CCM Referred by:: MICHELLE Reason for Consultation:: SOB / cough - History of Present Illness Chief Complaint: SOB / fever / cough History of Present Illness: 88 M, Metastatic Prostate CA (metastasis to lungs and lumbar spine), has received Lupron in the past, chronic indwelling barger catheter, history of renal calculi s/p lithotripsy, and HPL. Admitted via the ER due to hematuria for 10 days. He also reports a productive cough with yellow/brown sputum. Denies hemoptysis or night sweats. No CP but does report some SOB and CARRERA (seems chronic). He was started on CBI which has improved his hematuria. Noted fever of 102 and increased lactic acid. Patient has refused CXR but has now agreed after I explained the benefit of obtaining the study. - History Source History Provided By: Patient Limitations to Obtaining History: Poor Historian - Past Medical History Pulmonary: Yes: Cancer (Prostate mets to the lung ), Pneumonia. No: Asthma, Pulmonary Embolus, Sleep Apnea Renal/: Yes: Renal Calculi (s/p lithotripsy) - Alcohol/Substance Use Hx Alcohol Use: No History of Substance Use: reports: None - Smoking History Smoking history: Never smoked Have you smoked in the past 12 months: No - Social History ADL: Family Assistance History of Recent Travel: No Home Medications - Allergies Allergies/Adverse Reactions: Allergies Allergy/AdvReac Type Severity Reaction Status Date / Time No Known Allergies Allergy Verified 02/20/18 00:21 - Home Medications Home Medications: Ambulatory Orders Cefpodoxime Proxetil [Vantin -] 100 mg PO BID #14 tablet 02/20/18 Review of Systems - Review of Systems Constitutional: reports: Fever, Malaise, Weakness. denies: Chills, Night Sweats Eyes: reports: No Symptoms HENT: reports: No Symptoms Neck: reports: No Symptoms Cardiovascular: reports: Shortness of Breath. denies: Chest Pain, Edema, Palpitations Respiratory: reports: Cough, SOB, SOB on Exertion. denies: Hemoptysis, Snoring , Wheezing Gastrointestinal: reports: No Symptoms Genitourinary: reports: Hematuria Breasts: reports: No Symptoms Reported Musculoskeletal: reports: Back Pain, Muscle Weakness Integumentary: reports: No Symptoms Neurological: reports: No Symptoms Endocrine: reports: No Symptoms Hematology/Lymphatic: reports: No Symptoms Psychiatric: reports: No Symptoms Physical Exam Vital Sings: Vital Signs Temperature 98.0 F 05/12/18 09:59 Pulse Rate 78 05/12/18 09:59 Respiratory Rate 20 05/12/18 09:59 Blood Pressure 102/57 L 05/12/18 09:59 O2 Sat by Pulse Oximetry (%) 95 05/11/18 21:00 Constitutional: Yes: No Distress, Cachectic, Thin Eyes: Yes: Conjunctiva Clear, EOM Intact HENT: Yes: Atraumatic, Normocephalic Neck: Yes: Supple, Trachea Midline Cardiovascular: Yes: Regular Rate and Rhythm Respiratory: Yes: Cough, Diminished, On Nasal O2, Rhonchi, SOB, SOB on Exertion , Tachypnea. No: Accessory Muscle Use, Rales, Stridor, Wheezes ...Inspection: Yes: WNL ...Clubbing: No Gastrointestinal: Yes: Normal Bowel Sounds, Soft Renal/: Yes: Barger Present Musculoskeletal: Yes: Back Pain, Joint Stiffness Extremities: Yes: WNL Edema: No Peripheral Pulses WNL: Yes Integumentary: Yes: WNL Neurological: Yes: Alert, Oriented, Confusion Psychiatric: Yes: Alert, Oriented Labs: CBC, BMP 05/12/18 07:00 05/12/18 07:00 Problem List - Problems (1) Lung metastases Code(s): C78.00 - SECONDARY MALIGNANT NEOPLASM OF UNSPECIFIED LUNG (2) Fever Code(s): R50.9 - FEVER, UNSPECIFIED (3) Hematuria, gross Code(s): R31.0 - GROSS HEMATURIA (4) Metastatic malignant neoplasm to prostate Code(s): C79.82 - SECONDARY MALIGNANT NEOPLASM OF GENITAL ORGANS (5) Bronchitis Code(s): J40 - BRONCHITIS, NOT SPECIFIED ACUTE OR CHRONIC (6) Shortness of breath Code(s): R06.02 - SHORTNESS OF BREATH (7) Weakness Code(s): R53.1 - WEAKNESS Assessment/Plan Agree with Empiric ABX coverage per ID O2 as needed Check sputum if able Patient has agreed to a CXR Follow cultures BD TX PRN No indication for systemic steroids at this time unless we suspect progressive lymphangitic spread by imaging No smoking Will follow Thank you. Dr Duncan
[2018-05-12] MEDS: ACETAMINOPHEN 325 MG TABLET (FP) PO PRN ×2 (14:55→22:53)
--- NOTE | 2018-05-12 16:34 | PN ---
Progress Note (short form) - Note Progress Note: comfortable in bed. requesting to be sent home with larger size barger (1/2inch rather than 1/4in) was previously on leuporon shots for prostatic cancer but was told his body got used to it. tried xytiga but pt did not tolerated the side effects. Vital Signs Temperature 99.3 F 05/12/18 20:02 Pulse Rate 92 H 05/12/18 20:02 Respiratory Rate 20 05/12/18 20:02 Blood Pressure 88/41 L 05/12/18 20:02 O2 Sat by Pulse Oximetry (%) 95 05/12/18 09:00 PE: comfortable on nasal cannula limited mobility in bed, decr rom at neck abd soft nontender,nondistended no LE edema barger in place draining clear yellow urine, no clots, no blood 88 yr old man with Metastatic resistant prostate cancer(ungs/lumbar vertebrae), (skeletal involvement - s/p RTX in past), reliant on catheterization, presents with gross hematuria. Problem list: metastatic prostate cancer hematuria anemia - normocytic, due to acute blood loss A/P amicar was not implemented as hematuria was improving the CBI, and now appears resolved, amicar no longer needed at this time pt requesting information on any current treatment options for his prostate cancer, would like to learn about the possible side effects
--- NOTE | 2018-05-12 23:18 | PN ---
Teaching Attending Note Name of Resident: Malathi Solomon ATTENDING PHYSICIAN STATEMENT I saw and evaluated the patient. I reviewed the resident's note and discussed the case with the resident. I agree with the resident's findings and plan as documented. ASSESSMENT AND PLAN: 88 y/o wth metastatic prostate cancer. refused Xtandi and lupro vivien past. Liver/ lung/bone mets poor performance status Hematuria improved hence holding on amicar palliative care consult
[2018-05-13] MEDS ORDERED: PIPERACILLIN/TAZOBACTAM 3.375 GM VIAL IVPB ONE ×3 (02:34→17:04)
[2018-05-13] MEDS: PIPERACILLIN/TAZOB 3.375 GM 3.375 GM in DEXTROSE 5%-WATER - 50 ML IVPB SCH ×3 (02:41→17:08)
[2018-05-13] MEDS: SODIUM CHLORIDE 1,000 ML IV SCH ×3 (02:41→12:39)
[2018-05-13 04:17] LABS: SERUM IRON SATURATION 5 % (15-55); TOTAL IRON BINDING CAPACITY 170 ug/dL (250-450); UIBC 162 ug/dL (111-343)
[2018-05-13 07:49] LABS: BASO % 0.7 % (0-2.0); EOS % 2.4 % (0-4.5); HEMATOCRIT 28.7 % (35.4-49); HEMOGLOBIN 9.5 GM/dL (11.7-16.9); LYMPH % 4.6 % (8-40); MCH 30.5 pg (25.7-33.7); MEAN CELL VOLUME 92.2 fl (80-96); MEAN PLT VOLUME 7.9 fl (7.5-11.1); MONO % 7.2 % (3.8-10.2); NEUT % 85.1 % (42.8-82.8); PLATELET COUNT 167 K/MM3 (134-434); RBC 3.11 M/mm3 (4.00-5.60); RDW 15.3 % (11.9-15.9); WHITE BLOOD COUNT 5.3 K/mm3 (4.0-10.0)
[2018-05-13 08:14] LABS: ALK PHOS 158 U/L (45-117); ANION GAP 9 MMOL/L (8-16); BILIRUBIN,TOTAL 0.4 mg/dL (0.2-1); BLOOD UREA NITROGEN 23 mg/dL (7-18); CALCIUM 8.1 mg/dL (8.5-10.1); CHLORIDE 102 mmol/L (98-107); CO2 25 mmol/L (21-32); GLUCOSE,RANDOM 91 mg/dL (74-106); POTASSIUM 3.6 mmol/L (3.5-5.1); SGOT/AST 69 U/L (15-37); SGPT/ALT 14 U/L (13-61); SODIUM 137 mmol/L (136-145); TOT PROT 4.8 g/dl (6.4-8.2)
[2018-05-13 08:23] LABS: URINE APPEARANCE CLEAR; URINE BILIRUBIN NEGATIVE (<2.0 mg/dL); URINE COLOR YELLOW; URINE GLUCOSE (UA) NEGATIVE (NEGATIVE); URINE KETONE NEGATIVE (NEGATIVE); URINE LEUK ESTERASE 3+ (NEGATIVE); URINE NITRITE NEGATIVE (NEGATIVE); URINE PROTEIN 2+ (NEGATIVE); URINE UROBILINOGEN NEGATIVE mg/dL (0.2-1.0)
[2018-05-13 09:09] LABS: URINE BACTERIA RARE /hpf (NONE SEEN); YEAST FEW
[2018-05-13] MEDS ORDERED: DEXTROSE 5%-WATER - 50 ML IVPB ONE (09:21)
--- NOTE | 2018-05-13 09:28 | PN ---
Progress Note (short form) - Note Progress Note: afebrile urine clear off CBI abd soft cont barger drainage Problem List - Problems (1) Hematuria, gross Code(s): R31.0 - GROSS HEMATURIA (2) Metastatic malignant neoplasm to prostate Code(s): C79.82 - SECONDARY MALIGNANT NEOPLASM OF GENITAL ORGANS
--- NOTE | 2018-05-13 09:51 | PN ---
Progress Note, Physician - Current Medication List Current Medications: Active Medications Acetaminophen (Tylenol -) 650 mg PO Q6H PRN PRN Reason: FEVER Last Admin: 05/12/18 22:53 Dose: 650 mg Albuterol/Ipratropium (Duoneb -) 1 amp NEB Q6H PRN PRN Reason: SHORTNESS OF BREATH Benzocaine/Menthol (Cepacol Lozenge -) 1 each MM PRN PRN PRN Reason: SORE THROAT Guaifenesin/Codeine Phosphate (Robitussin Ac -) 5 ml PO BID PRN PRN Reason: COUGH Last Admin: 05/12/18 22:53 Dose: 5 ml Piperacillin Sod/Tazobactam (Sod 3.375 gm/ Dextrose) 50 mls @ 100 mls/hr IVPB Q8H-IV EDILBERTO; Protocol Last Admin: 05/13/18 09:26 Dose: 100 mls/hr Sodium Chloride (Normal Saline -) 1,000 mls @ 75 mls/hr IV ASDIR EDILBERTO Last Admin: 05/13/18 09:26 Dose: 75 mls/hr Phenol/Menthol (Chloraseptic -) 1 spray MM Q6HPO PRN PRN Reason: SORE THROAT Last Admin: 05/11/18 21:53 Dose: 1 spray - Objective Vital Signs: Vital Signs Temperature 99.4 F 05/13/18 05:58 Pulse Rate 90 05/13/18 05:58 Respiratory Rate 20 05/13/18 05:58 Blood Pressure 118/64 05/13/18 05:58 O2 Sat by Pulse Oximetry (%) 96 05/12/18 22:00 Cardiovascular: Yes: S1, S2 Respiratory: Yes: Diminished, Rhonchi Gastrointestinal: Yes: Normal Bowel Sounds, Soft Labs: CBC, BMP 05/13/18 07:00 05/13/18 07:00 INR, PTT INR 1.10 (0.83-1.09) H 05/10/18 07:30 Assessment/Plan - Problems (1) Fever Assessment/Plan: - CXR-infiltrate -IV abx -ID on board -Pulmonary consulted -Tylenol for fever >100.0F Code(s): R50.9 - FEVER, UNSPECIFIED (2) Hematuria, gross Assessment/Plan: -Seen by Urology -CBI running clear Code(s): R31.0 - GROSS HEMATURIA (3) Metastatic malignant neoplasm to prostate per urology and onc Code(s): C79.82 - SECONDARY MALIGNANT NEOPLASM OF GENITAL ORGANS (4) Anemia Assessment/Plan: -H/H stabilized after initiation of Amicar -iron profile pending -monitor trend -Seen by hematology Code(s): D64.9 - ANEMIA, UNSPECIFIED
--- NOTE | 2018-05-13 12:41 | PN ---
Progress Note (short form) - Note Progress Note: Feels a little better today. Less congested cough. No hemoptysis. CXR: increasing opacification of the RLL: post-obstructive versus related to prostatic mets Intake & Output 05/10/18 05/11/18 05/12/18 05/13/18 23:59 23:59 23:59 23:59 Intake Total 9100 40431 95798 1225 Output Total 46279 98822 6200 1000 Balance -4500 3410 6890 225 Weight 130 lb Last Vital Signs Temp Pulse Resp BP Pulse Ox 99.4 F 90 20 118/64 96 05/13/18 05:58 05/13/18 05:58 05/13/18 05:58 05/13/18 05:58 05/12/18 22:00 Active Medications Acetaminophen (Tylenol -) 650 mg PO Q6H PRN PRN Reason: FEVER Last Admin: 05/12/18 22:53 Dose: 650 mg Albuterol/Ipratropium (Duoneb -) 1 amp NEB Q6H PRN PRN Reason: SHORTNESS OF BREATH Benzocaine/Menthol (Cepacol Lozenge -) 1 each MM PRN PRN PRN Reason: SORE THROAT Guaifenesin/Codeine Phosphate (Robitussin Ac -) 5 ml PO BID PRN PRN Reason: COUGH Last Admin: 05/12/18 22:53 Dose: 5 ml Piperacillin Sod/Tazobactam (Sod 3.375 gm/ Dextrose) 50 mls @ 100 mls/hr IVPB Q8H-IV EDILBERTO; Protocol Last Admin: 05/13/18 09:26 Dose: 100 mls/hr Sodium Chloride (Normal Saline -) 1,000 mls @ 75 mls/hr IV ASDIR EDILBERTO Last Admin: 05/13/18 12:39 Dose: Not Given Phenol/Menthol (Chloraseptic -) 1 spray MM Q6HPO PRN PRN Reason: SORE THROAT Last Admin: 05/11/18 21:53 Dose: 1 spray Constitutional: Yes: No Distress, Cachectic, Thin Eyes: Yes: Conjunctiva Clear, EOM Intact HENT: Yes: Atraumatic, Normocephalic Neck: Yes: Supple, Trachea Midline Cardiovascular: Yes: Regular Rate and Rhythm Respiratory: Yes: Cough, Diminished, On Nasal O2, Rhonchi, SOB, SOB on Exertion , Tachypnea. No: Accessory Muscle Use, Rales, Stridor, Wheezes ...Inspection: Yes: WNL ...Clubbing: No Gastrointestinal: Yes: Normal Bowel Sounds, Soft Renal/: Yes: Anaya Present Musculoskeletal: Yes: Back Pain, Joint Stiffness Extremities: Yes: WNL Edema: No Peripheral Pulses WNL: Yes Integumentary: Yes: WNL Neurological: Yes: Alert, Oriented, Confusion Psychiatric: Yes: Alert, Oriented Labs: Laboratory Results - last 24 hr 05/12/18 05/12/18 05/12/18 12:15 12:15 12:15 WBC RBC Hgb Hct MCV MCH MCHC RDW Plt Count MPV Absolute Neuts (auto) Neutrophils % Lymphocytes % Monocytes % Eosinophils % Basophils % Nucleated RBC % Sodium Potassium Chloride Carbon Dioxide Anion Gap BUN Creatinine Creat Clearance w eGFR Random Glucose Hemoglobin A1c % 5.1 Calcium Iron 8 L TIBC 170 L Iron Saturation 5 L Ferritin 586.9 H Total Bilirubin AST ALT Alkaline Phosphatase Total Protein Albumin Urine Color Urine Appearance Urine pH Ur Specific [place] Urine Protein Urine Glucose (UA) Urine Ketones Urine Blood Urine Nitrite Urine Bilirubin Urine Urobilinogen Ur Leukocyte Esterase Urine WBC (Auto) Urine RBC (Auto) Urine Bacteria Urine Yeast 05/13/18 05/13/18 05/13/18 06:45 07:00 07:00 WBC 5.3 RBC 3.11 L Hgb 9.5 L Hct 28.7 L MCV 92.2 MCH 30.5 MCHC 33.0 RDW 15.3 Plt Count 167 MPV 7.9 Absolute Neuts (auto) 4.5 Neutrophils % 85.1 H Lymphocytes % 4.6 L D Monocytes % 7.2 Eosinophils % 2.4 D Basophils % 0.7 Nucleated RBC % 0 Sodium 137 Potassium 3.6 Chloride 102 Carbon Dioxide 25 Anion Gap 9 BUN 23 H Creatinine 1.0 Creat Clearance w eGFR > 60 Random Glucose 91 Hemoglobin A1c % Calcium 8.1 L Iron TIBC Iron Saturation Ferritin Total Bilirubin 0.4 AST 69 H ALT 14 Alkaline Phosphatase 158 H Total Protein 4.8 L Albumin 2.0 L Urine Color Yellow Urine Appearance Clear Urine pH 6.0 D Ur Specific [place] 1.014 Urine Protein 2+ H Urine Glucose (UA) Negative Urine Ketones Negative Urine Blood 3+ H Urine Nitrite Negative Urine Bilirubin Negative Urine Urobilinogen Negative Ur Leukocyte Esterase 3+ H Urine WBC (Auto) 27 Urine RBC (Auto) 198 Urine Bacteria Rare Urine Yeast Few Problem List - Problems (1) Lung metastases Code(s): C78.00 - SECONDARY MALIGNANT NEOPLASM OF UNSPECIFIED LUNG (2) Fever Code(s): R50.9 - FEVER, UNSPECIFIED (3) Hematuria, gross Code(s): R31.0 - GROSS HEMATURIA (4) Metastatic malignant neoplasm to prostate Code(s): C79.82 - SECONDARY MALIGNANT NEOPLASM OF GENITAL ORGANS (5) Bronchitis Code(s): J40 - BRONCHITIS, NOT SPECIFIED ACUTE OR CHRONIC (6) Shortness of breath Code(s): R06.02 - SHORTNESS OF BREATH (7) Weakness Code(s): R53.1 - WEAKNESS Assessment/Plan Empiric ABX coverage per ID O2 as needed Follow cultures BD TX PRN No smoking Dr Duncan Problem List - Problems (1) Lung metastases Code(s): C78.00 - SECONDARY MALIGNANT NEOPLASM OF UNSPECIFIED LUNG (2) Fever Code(s): R50.9 - FEVER, UNSPECIFIED (3) Hematuria, gross Code(s): R31.0 - GROSS HEMATURIA (4) Metastatic malignant neoplasm to prostate Code(s): C79.82 - SECONDARY MALIGNANT NEOPLASM OF GENITAL ORGANS (5) Bronchitis Code(s): J40 - BRONCHITIS, NOT SPECIFIED ACUTE OR CHRONIC (6) Shortness of breath Code(s): R06.02 - SHORTNESS OF BREATH (7) Weakness Code(s): R53.1 - WEAKNESS
--- NOTE | 2018-05-13 13:04 | PN ---
Progress Note, Physician History of Present Illness: feels a little better today still weak - Current Medication List Current Medications: Active Medications Acetaminophen (Tylenol -) 650 mg PO Q6H PRN PRN Reason: FEVER Last Admin: 05/12/18 22:53 Dose: 650 mg Albuterol/Ipratropium (Duoneb -) 1 amp NEB Q6H PRN PRN Reason: SHORTNESS OF BREATH Benzocaine/Menthol (Cepacol Lozenge -) 1 each MM PRN PRN PRN Reason: SORE THROAT Guaifenesin/Codeine Phosphate (Robitussin Ac -) 5 ml PO BID PRN PRN Reason: COUGH Last Admin: 05/12/18 22:53 Dose: 5 ml Piperacillin Sod/Tazobactam (Sod 3.375 gm/ Dextrose) 50 mls @ 100 mls/hr IVPB Q8H-IV EDILBERTO; Protocol Last Admin: 05/13/18 09:26 Dose: 100 mls/hr Sodium Chloride (Normal Saline -) 1,000 mls @ 75 mls/hr IV ASDIR EDILBERTO Last Admin: 05/13/18 12:39 Dose: Not Given Phenol/Menthol (Chloraseptic -) 1 spray MM Q6HPO PRN PRN Reason: SORE THROAT Last Admin: 05/11/18 21:53 Dose: 1 spray - Objective Vital Signs: Vital Signs Temperature 99.3 F 05/13/18 08:00 Pulse Rate 91 H 05/13/18 08:00 Respiratory Rate 20 05/13/18 08:00 Blood Pressure 114/60 05/13/18 08:00 O2 Sat by Pulse Oximetry (%) 96 05/13/18 08:00 Constitutional: Yes: Calm, Mild Distress Cardiovascular: Yes: Regular Rate and Rhythm Respiratory: Yes: Poor Air Entry, Rhonchi Gastrointestinal: Yes: Normal Bowel Sounds, Soft Musculoskeletal: Yes: WNL Extremities: Yes: WNL Neurological: Yes: Alert, Oriented Psychiatric: Yes: Alert, Oriented Labs: CBC, BMP 05/13/18 07:00 05/13/18 07:00 INR, PTT INR 1.10 (0.83-1.09) H 05/10/18 07:30 Assessment/Plan Problem List - Problems (1) Fever Code(s): R50.9 - FEVER, UNSPECIFIED (2) Hematuria, gross Code(s): R31.0 - GROSS HEMATURIA (3) Metastatic malignant neoplasm to prostate Code(s): C79.82 - SECONDARY MALIGNANT NEOPLASM OF GENITAL ORGANS (4) UTI (urinary tract infection) Code(s): N39.0 - URINARY TRACT INFECTION, SITE NOT SPECIFIED Qualifiers: Urinary tract infection type: site unspecified Hematuria presence: without hematuria Qualified Code(s): N39.0 - Urinary tract infection, site not specified (5) Urinary catheter insertion/adjustment/removal Code(s): Z46.6 - ENCOUNTER FOR FITTING AND ADJUSTMENT OF URINARY DEVICE (6) Weakness Code(s): R53.1 - WEAKNESS Assessment/Plan 88 y.o. 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 Noted to have clots in urine and started on CBI. Today found to have fever of 102.4F Fever Hematuria/urinary retention Chronic indwelling barger Metastatic Prostate CA continue zosyn consider repeating urine if continues to spike fever await for blood cx reports xray chest if he allows rest as per the team
--- NOTE | 2018-05-13 13:50 | CONSULT ---
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 He was admitted with possible UTI with gross hematuria. was consulted, as was Pulm for lung mets and ID who adjusted antibiotics. Physiatry is being consulted for further recommendations. - Past Medical History Pulmonary: Yes: Cancer (Prostate mets to the lung ), Pneumonia. No: Asthma, Pulmonary Embolus, Sleep Apnea Renal/: Yes: Renal Calculi (s/p lithotripsy) - Alcohol/Substance Use Hx Alcohol Use: No History of Substance Use: reports: None - Smoking History Smoking history: Never smoked Have you smoked in the past 12 months: No - Social History Usual Living Arrangement: Alone (alone in [facility] apartment without stairs to enter, has DENTAL OFFICE COORDINATOR 10-12 hours daily x7 days, ambulated with Rollator) ADL: Family Assistance History of Recent Travel: No Home Medications - Allergies Allergies/Adverse Reactions: Allergies Allergy/AdvReac Type Severity Reaction Status Date / Time No Known Allergies Allergy Verified 02/20/18 00:21 - Home Medications Home Medications: Ambulatory Orders Cefpodoxime Proxetil [Vantin -] 100 mg PO BID #14 tablet 02/20/18 Review of Systems Findings/Remarks: Difficulty obtaining ROS due to rambling speech, does note L jaw pain due to mets which radiates into top of head and is improved with head Physical Exam Vital Signs: Vital Signs Temperature 99.3 F 05/13/18 08:00 Pulse Rate 91 H 05/13/18 08:00 Respiratory Rate 20 05/13/18 08:00 Blood Pressure 114/60 05/13/18 08:00 O2 Sat by Pulse Oximetry (%) 96 05/13/18 08:00 Musculoskeletal: Yes: Other (General: calm elderly M sitting in bed NAD on supplemental O2 N/M: B shoulder flexion to 90 degrees, 4/5 RUE, 4-/5 LUE , 2/5 R HF/ KE, 1/5 L HF/ KE, then 4/5 B DF/ EHL; Pinprick decreased RUE/ RLE compared to LUE/ LLE Extremities: no BLE pitting edema, no B calf tenderness) Labs: CBC, BMP 05/13/18 07:00 05/13/18 07:00 Assessment/Plan Impression: 1) Deficits mobility/ ADLs 2) Deconditioning 3) Gait abnormality 4) Anemia due to gross hematuria 5) metastatic prostate cancer with mets to lungs/ lumbar spine 6) UTI 7) hx HLD 8) hx renal calculi s/p lithotripsy 9) BMI WNL 10) No documented flu shot/ pneumovax Recommendations: 1) PT for stretching strengthening ROM and functional mobility 2) Falls, safety precautions 3) Cardiac precautions 4) Heat to L jaw/ neck and low back prn 5) Skin protection: float heels, frequent turning 6) Discharge planning: d/w pt that he would benefit from inpatient rehabilitation once medically stable, given current level of weakness. He is adamant about returning to home with his DENTAL OFFICE COORDINATOR. Thank you for this referral.
[2018-05-13] MEDS: guaiFENesin/CODEINE 5 ML UNIT-DOSE CUPS PO PRN (16:02)
--- NOTE | 2018-05-13 16:36 | PN ---
Progress Note (short form) - Note Progress Note: Renal follow up for Hematuria Pt seen and examined at the bedside no acute complaints barger with yellow urine with some sediment no abd pain Vital Signs Temperature 99.1 F 05/13/18 14:24 Pulse Rate 95 H 05/13/18 14:24 Respiratory Rate 20 05/13/18 08:00 Blood Pressure 96/47 L 05/13/18 14:24 O2 Sat by Pulse Oximetry (%) 96 05/13/18 08:00 Intake & Output 05/10/18 05/11/18 05/12/18 05/13/18 23:59 23:59 23:59 23:59 Intake Total 9100 87223 23634 1500 Output Total 22146 45933 6200 1300 Balance -4500 3410 6890 200 Weight 58.967 kg NAD Barger in place no LE edema Dec BS, no rales RRR CBC, BMP 05/13/18 07:00 05/13/18 07:00 Current Medications Acetaminophen (Tylenol -) 650 mg PO Q6H PRN PRN Reason: FEVER Last Admin: 05/12/18 22:53 Dose: 650 mg Albuterol/Ipratropium (Duoneb -) 1 amp NEB Q6H PRN PRN Reason: SHORTNESS OF BREATH Benzocaine/Menthol (Cepacol Lozenge -) 1 each MM PRN PRN PRN Reason: SORE THROAT Guaifenesin/Codeine Phosphate (Robitussin Ac -) 5 ml PO BID PRN PRN Reason: COUGH Last Admin: 05/13/18 16:02 Dose: 5 ml Piperacillin Sod/Tazobactam (Sod 3.375 gm/ Dextrose) 50 mls @ 100 mls/hr IVPB Q8H-IV EDILBERTO; Protocol Last Admin: 05/13/18 09:26 Dose: 100 mls/hr Sodium Chloride (Normal Saline -) 1,000 mls @ 75 mls/hr IV ASDIR EDILBERTO Last Admin: 05/13/18 12:39 Dose: Not Given Phenol/Menthol (Chloraseptic -) 1 spray MM Q6HPO PRN PRN Reason: SORE THROAT Last Admin: 05/11/18 21:53 Dose: 1 spray 88 y.o. 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 mild CKD #Hematuria #Prostate Cancer #Anemia #Lactic acidosis renal function improved today with IVF US of the kidney showed no acute pathology Can discontinue IVF and monitor renal function and electrolytes Urology follow up Repeat lactic acid pending Trend H/H iron saturation is 5%, can consider venofer infusion Raúl Santana DO
[2018-05-14] MEDS ORDERED: DEXTROSE 5%-WATER - 50 ML IVPB ONE ×3 (01:13→17:16)
[2018-05-14] MEDS ORDERED: PIPERACILLIN/TAZOBACTAM 3.375 GM VIAL IVPB ONE ×3 (01:13→17:16)
[2018-05-14] MEDS: PIPERACILLIN/TAZOB 3.375 GM 3.375 GM in DEXTROSE 5%-WATER - 50 ML IVPB SCH ×3 (01:14→17:20)
[2018-05-14] MEDS: guaiFENesin/CODEINE 5 ML UNIT-DOSE CUPS PO PRN (01:31)
[2018-05-14 07:26] LABS: BASO % 0.9 % (0-2.0); EOS % 1.8 % (0-4.5); LYMPH % 8.7 % (8-40); MCH 30.6 pg (25.7-33.7); MCHC 33.4 g/dl (32.0-35.9); MEAN CELL VOLUME 91.5 fl (80-96); MEAN PLT VOLUME 8.2 fl (7.5-11.1); MONO % 10.8 % (3.8-10.2); NEUT % 77.8 % (42.8-82.8); PLATELET COUNT 162 K/MM3 (134-434); RBC 2.63 M/mm3 (4.00-5.60); RDW 15.3 % (11.9-15.9); WHITE BLOOD COUNT 4.9 K/mm3 (4.0-10.0)
[2018-05-14 07:49] LABS: ALBUMIN 1.8 g/dl (3.4-5.0); ALK PHOS 207 U/L (45-117); ANION GAP 6 MMOL/L (8-16); BILIRUBIN,TOTAL 0.4 mg/dL (0.2-1); BLOOD UREA NITROGEN 22 mg/dL (7-18); CALCIUM 7.7 mg/dL (8.5-10.1); CHLORIDE 105 mmol/L (98-107); CO2 25 mmol/L (21-32); CREATININE 0.9 mg/dL (0.55-1.3); GLUCOSE,RANDOM 86 mg/dL (74-106); MAGNESIUM 2.1 mg/dL (1.8-2.4); PHOSPHOROUS 2.2 mg/dL (2.5-4.9); POTASSIUM 3.6 mmol/L (3.5-5.1); SGOT/AST 54 U/L (15-37); SGPT/ALT 16 U/L (13-61); SODIUM 135 mmol/L (136-145); TOT PROT 4.3 g/dl (6.4-8.2)
--- NOTE | 2018-05-14 09:49 | PN ---
Progress Note, Physician - Current Medication List Current Medications: Active Medications Acetaminophen (Tylenol -) 650 mg PO Q6H PRN PRN Reason: FEVER Last Admin: 05/12/18 22:53 Dose: 650 mg Albuterol/Ipratropium (Duoneb -) 1 amp NEB Q6H PRN PRN Reason: SHORTNESS OF BREATH Benzocaine/Menthol (Cepacol Lozenge -) 1 each MM PRN PRN PRN Reason: SORE THROAT Guaifenesin/Codeine Phosphate (Robitussin Ac -) 5 ml PO BID PRN PRN Reason: COUGH Last Admin: 05/14/18 01:31 Dose: 5 ml Piperacillin Sod/Tazobactam (Sod 3.375 gm/ Dextrose) 50 mls @ 100 mls/hr IVPB Q8H-IV EDILBERTO; Protocol Last Admin: 05/14/18 09:41 Dose: 100 mls/hr Phenol/Menthol (Chloraseptic -) 1 spray MM Q6HPO PRN PRN Reason: SORE THROAT Last Admin: 05/11/18 21:53 Dose: 1 spray - Objective Vital Signs: Vital Signs Temperature 99.3 F 05/14/18 05:54 Pulse Rate 92 H 05/14/18 05:54 Respiratory Rate 18 05/14/18 05:54 Blood Pressure 101/50 L 05/14/18 05:54 O2 Sat by Pulse Oximetry (%) 97 05/13/18 21:00 Labs: CBC, BMP 05/14/18 06:00 05/14/18 06:00 INR, PTT INR 1.10 (0.83-1.09) H 05/10/18 07:30
--- NOTE | 2018-05-14 12:27 | PN ---
Progress Note, Physician History of Present Illness: patient again had hematuria last night started back on cbi - Current Medication List Current Medications: Active Medications Acetaminophen (Tylenol -) 650 mg PO Q6H PRN PRN Reason: FEVER Last Admin: 05/12/18 22:53 Dose: 650 mg Albuterol/Ipratropium (Duoneb -) 1 amp NEB Q6H PRN PRN Reason: SHORTNESS OF BREATH Last Admin: 05/14/18 08:00 Dose: 1 amp Benzocaine/Menthol (Cepacol Lozenge -) 1 each MM PRN PRN PRN Reason: SORE THROAT Guaifenesin/Codeine Phosphate (Robitussin Ac -) 5 ml PO BID PRN PRN Reason: COUGH Last Admin: 05/14/18 01:31 Dose: 5 ml Piperacillin Sod/Tazobactam (Sod 3.375 gm/ Dextrose) 50 mls @ 100 mls/hr IVPB Q8H-IV EDILBERTO; Protocol Last Admin: 05/14/18 09:41 Dose: 100 mls/hr Phenol/Menthol (Chloraseptic -) 1 spray MM Q6HPO PRN PRN Reason: SORE THROAT Last Admin: 05/11/18 21:53 Dose: 1 spray - Objective Vital Signs: Vital Signs Temperature 98.9 F 05/14/18 08:00 Pulse Rate 95 H 05/14/18 08:00 Respiratory Rate 20 05/14/18 08:00 Blood Pressure 127/58 L 05/14/18 08:00 O2 Sat by Pulse Oximetry (%) 97 05/14/18 08:00 Constitutional: Yes: No Distress, Calm Cardiovascular: Yes: Regular Rate and Rhythm Respiratory: Yes: Regular, CTA Bilaterally Gastrointestinal: Yes: Normal Bowel Sounds, Soft Genitourinary: Yes: Barger Present Musculoskeletal: Yes: WNL Extremities: Yes: WNL Neurological: Yes: Alert, Oriented Psychiatric: Yes: Alert, Oriented Labs: CBC, BMP 05/14/18 06:00 05/14/18 06:00 INR, PTT INR 1.10 (0.83-1.09) H 05/10/18 07:30 Assessment/Plan Problem List - Problems (1) Fever Code(s): R50.9 - FEVER, UNSPECIFIED (2) Hematuria, gross Code(s): R31.0 - GROSS HEMATURIA (3) Metastatic malignant neoplasm to prostate Code(s): C79.82 - SECONDARY MALIGNANT NEOPLASM OF GENITAL ORGANS (4) UTI (urinary tract infection) Code(s): N39.0 - URINARY TRACT INFECTION, SITE NOT SPECIFIED Qualifiers: Urinary tract infection type: site unspecified Hematuria presence: without hematuria Qualified Code(s): N39.0 - Urinary tract infection, site not specified (5) Urinary catheter insertion/adjustment/removal Code(s): Z46.6 - ENCOUNTER FOR FITTING AND ADJUSTMENT OF URINARY DEVICE (6) Weakness Code(s): R53.1 - WEAKNESS 7 gm negative bacteremia Assessment/Plan 88 y.o. 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 Noted to have clots in urine and started on CBI. Today found to have fever of 102.4F Fever Hematuria/urinary retention Chronic indwelling barger Metastatic Prostate CA gm negative bacteremia plan continue zosyn will order repeat blood cx rest as per the team
[2018-05-14] MEDS: ACETAMINOPHEN 325 MG TABLET (FP) PO PRN (14:03)
--- NOTE | 2018-05-14 16:00 | PN ---
Progress Note, Physician History of Present Illness: PULMONARY ALERT,MILDLY DYSPNEIC - Current Medication List Current Medications: Active Medications Acetaminophen (Tylenol -) 650 mg PO Q6H PRN PRN Reason: FEVER Last Admin: 05/14/18 14:03 Dose: 650 mg Albuterol/Ipratropium (Duoneb -) 1 amp NEB Q6H PRN PRN Reason: SHORTNESS OF BREATH Last Admin: 05/14/18 08:00 Dose: 1 amp Benzocaine/Menthol (Cepacol Lozenge -) 1 each MM PRN PRN PRN Reason: SORE THROAT Guaifenesin/Codeine Phosphate (Robitussin Ac -) 5 ml PO BID PRN PRN Reason: COUGH Last Admin: 05/14/18 01:31 Dose: 5 ml Piperacillin Sod/Tazobactam (Sod 3.375 gm/ Dextrose) 50 mls @ 100 mls/hr IVPB Q8H-IV EDILBERTO; Protocol Last Admin: 05/14/18 09:41 Dose: 100 mls/hr Phenol/Menthol (Chloraseptic -) 1 spray MM Q6HPO PRN PRN Reason: SORE THROAT Last Admin: 05/11/18 21:53 Dose: 1 spray - Objective Vital Signs: Vital Signs Temperature 100.7 F H 05/14/18 14:05 Pulse Rate 91 H 05/14/18 14:05 Respiratory Rate 20 05/14/18 08:00 Blood Pressure 96/41 L 05/14/18 14:05 O2 Sat by Pulse Oximetry (%) 97 05/14/18 08:00 Constitutional: Yes: Calm, Thin Eyes: Yes: WNL HENT: Yes: WNL Neck: Yes: WNL Cardiovascular: Yes: Regular Rate and Rhythm, S1, S2 Respiratory: Yes: Rhonchi (FEW RHONCHI) Gastrointestinal: Yes: Normal Bowel Sounds, Soft Extremities: Yes: WNL Edema: No Labs: CBC, BMP 05/14/18 06:00 05/14/18 06:00 INR, PTT INR 1.10 (0.83-1.09) H 05/10/18 07:30 Assessment/Plan Problem List - Problems (1) Lung metastases Code(s): C78.00 - SECONDARY MALIGNANT NEOPLASM OF UNSPECIFIED LUNG (2) Fever Code(s): R50.9 - FEVER, UNSPECIFIED (3) Hematuria, gross Code(s): R31.0 - GROSS HEMATURIA (4) Metastatic malignant neoplasm to prostate Code(s): C79.82 - SECONDARY MALIGNANT NEOPLASM OF GENITAL ORGANS (5) Bronchitis Code(s): J40 - BRONCHITIS, NOT SPECIFIED ACUTE OR CHRONIC (6) Shortness of breath Code(s): R06.02 - SHORTNESS OF BREATH (7) Weakness Code(s): R53.1 - WEAKNESS Assessment/Plan Empiric ABX coverage per ID O2 as needed BD TX DR CARTER
[2018-05-14] MEDS ORDERED: ALBUTEROL SO4 0.083% IH SOL 2.5 MG/3 ML VIAL.NEB. NEB PRN (16:01)
--- NOTE | 2018-05-14 16:16 | PN ---
Progress Note (short form) - Note Progress Note: Renal follow up for Hematuria Pt seen and examined at the bedside no complaints restarted on CBI no cp, sob, abd pain Vital Signs Temperature 100.7 F H 05/14/18 14:05 Pulse Rate 91 H 05/14/18 14:05 Respiratory Rate 20 05/14/18 08:00 Blood Pressure 96/41 L 05/14/18 14:05 O2 Sat by Pulse Oximetry (%) 97 05/14/18 08:00 Intake & Output 05/11/18 05/12/18 05/13/18 05/14/18 23:59 23:59 23:59 23:59 Intake Total 36096 62896 2890 4665 Output Total 86060 6200 1700 4600 Balance 3410 6890 1190 65 Weight 58.967 kg NAD Barger in place no LE edema Dec BS, no rales RRR CBC, BMP 05/14/18 06:00 05/14/18 06:00 Current Medications Acetaminophen (Tylenol -) 650 mg PO Q6H PRN PRN Reason: FEVER Last Admin: 05/14/18 14:03 Dose: 650 mg Albuterol Sulfate (Ventolin 0.083% Nebulizer Soln -) 1 amp NEB Q4H PRN PRN Reason: SHORT OF BREATH/WHEEZING Albuterol/Ipratropium (Duoneb -) 1 amp NEB RQID EDILBERTO Benzocaine/Menthol (Cepacol Lozenge -) 1 each MM PRN PRN PRN Reason: SORE THROAT Guaifenesin/Codeine Phosphate (Robitussin Ac -) 5 ml PO BID EDILBERTO Piperacillin Sod/Tazobactam (Sod 3.375 gm/ Dextrose) 50 mls @ 100 mls/hr IVPB Q8H-IV EDILBERTO; Protocol Last Admin: 05/14/18 09:41 Dose: 100 mls/hr Phenol/Menthol (Chloraseptic -) 1 spray MM Q6HPO PRN PRN Reason: SORE THROAT Last Admin: 05/11/18 21:53 Dose: 1 spray 88 y.o. 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 mild CKD #Hematuria #Prostate Cancer #Anemia #Lactic acidosis Renal function stable continue CBI as per Urology US of kidney showed no structural pathology of the kidney Trend renal function and electrolytes Raúl Santana DO
[2018-05-14] MEDS: ALBUTEROL SO4 2.5/IPRATROPIUM 0.5 INH SOL 3 ML VIAL.NEB. NEB SCH ×2 (16:38→20:07)
[2018-05-14 16:54] LABS: BASO % 0.9 % (0-2.0); EOS % 1.5 % (0-4.5); HEMATOCRIT 24.1 % (35.4-49); HEMOGLOBIN 8.4 GM/dL (11.7-16.9); LYMPH % 7.7 % (8-40); MCH 31.7 pg (25.7-33.7); MEAN CELL VOLUME 90.5 fl (80-96); MEAN PLT VOLUME 8.3 fl (7.5-11.1); MONO % 11.4 % (3.8-10.2); NEUT % 78.5 % (42.8-82.8); PLATELET COUNT 201 K/MM3 (134-434); RBC 2.66 M/mm3 (4.00-5.60); RDW 15.1 % (11.9-15.9); WHITE BLOOD COUNT 4.9 K/mm3 (4.0-10.0)
--- NOTE | 2018-05-14 18:33 | PN ---
Progress Note (short form) - Note Progress Note: Patient seen and examined Complains of sinus problems and post nasal drip Has blood in urine Back on CBI Last Vital Signs Temp Pulse Resp BP Pulse Ox 100.7 F H 91 H 20 96/41 L 97 05/14/18 14:05 05/14/18 14:05 05/14/18 08:00 05/14/18 14:05 05/14/18 08:00 Lungs - rhonchi Cor_ RSR soft - Abd - soft On CBI CBC, BMP 05/14/18 16:00 05/14/18 06:00 Current Medications Generic Name Dose Route Start Last Admin Trade Name Freq PRN Reason Stop Dose Admin Acetaminophen 650 mg 05/10/18 12:22 05/14/18 14:03 Tylenol - PO 650 mg Q6H PRN Administration FEVER Albuterol Sulfate 1 amp 05/14/18 16:01 Ventolin 0.083% Nebulizer Soln - NEB Q4H PRN SHORT OF BREATH/WHEEZING Albuterol/Ipratropium 1 amp 05/14/18 16:00 05/14/18 16:38 Duoneb - NEB 1 amp RQID EDILBERTO Administration Benzocaine/Menthol 1 each 05/11/18 12:52 Cepacol Lozenge - MM PRN PRN SORE THROAT Guaifenesin/Codeine Phosphate 5 ml 05/14/18 22:00 Robitussin Ac - PO BID EDILBERTO Piperacillin Sod/Tazobactam 50 mls @ 100 mls/hr 05/11/18 19:45 05/14/18 17:20 Sod 3.375 gm/ Dextrose IVPB 100 mls/hr Q8H-IV EDILBERTO Administration Protocol Phenol/Menthol 1 spray 05/11/18 12:52 05/11/18 21:53 Chloraseptic - MM 1 spray Q6HPO PRN Administration SORE THROAT Impression : hematuria 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 -abiaterone and enzulutamide
[2018-05-14] MEDS: guaiFENesin/CODEINE 5 ML UNIT-DOSE CUPS PO SCH (21:58)
[2018-05-15] MEDS: PIPERACILLIN/TAZOB 3.375 GM 3.375 GM in DEXTROSE 5%-WATER - 50 ML IVPB SCH ×3 (02:00→17:24)
[2018-05-15] MEDS ORDERED: PIPERACILLIN/TAZOBACTAM 3.375 GM VIAL IVPB ONE ×3 (02:11→17:18)
[2018-05-15] MEDS ORDERED: DEXTROSE 5%-WATER - 50 ML IVPB ONE ×3 (02:12→17:19)
[2018-05-15 07:02] LABS: BASO % 1.1 % (0-2.0); EOS % 2.8 % (0-4.5); HEMATOCRIT 27.7 % (35.4-49); HEMOGLOBIN 9.2 GM/dL (11.7-16.9); LYMPH % 6.7 % (8-40); MCH 30.1 pg (25.7-33.7); MCHC 33.1 g/dl (32.0-35.9); MEAN CELL VOLUME 91.1 fl (80-96); NEUT % 79.4 % (42.8-82.8); PLATELET COUNT 218 K/MM3 (134-434); RBC 3.04 M/mm3 (4.00-5.60); RDW 15.3 % (11.9-15.9); WHITE BLOOD COUNT 5.6 K/mm3 (4.0-10.0)
[2018-05-15] MEDS: ALBUTEROL SO4 2.5/IPRATROPIUM 0.5 INH SOL 3 ML VIAL.NEB. NEB SCH ×4 (07:19→20:06)
[2018-05-15 07:36] LABS: ALK PHOS 249 U/L (45-117); ANION GAP 8 MMOL/L (8-16); BILIRUBIN,TOTAL 0.8 mg/dL (0.2-1); BLOOD UREA NITROGEN 21 mg/dL (7-18); CALCIUM 7.7 mg/dL (8.5-10.1); CHLORIDE 104 mmol/L (98-107); CO2 25 mmol/L (21-32); CREATININE 0.9 mg/dL (0.55-1.3); GLUCOSE,RANDOM 87 mg/dL (74-106); POTASSIUM 3.9 mmol/L (3.5-5.1); SGOT/AST 74 U/L (15-37); SGPT/ALT 23 U/L (13-61); SODIUM 137 mmol/L (136-145); TOT PROT 4.8 g/dl (6.4-8.2)
[2018-05-15] MEDS: guaiFENesin/CODEINE 5 ML UNIT-DOSE CUPS PO SCH ×2 (10:03→21:10)
--- NOTE | 2018-05-15 10:03 | PN ---
Progress Note (short form) - Note Progress Note: Overall less congested cough. No hemoptysis. Intake & Output 05/12/18 05/13/18 05/14/18 05/15/18 23:59 23:59 23:59 23:59 Intake Total 88656 2890 53475 6000 Output Total 6200 1700 7600 8900 Balance 6890 1190 5565 -2900 Last Vital Signs Temp Pulse Resp BP Pulse Ox 98.5 F 81 20 96/48 L 98 05/15/18 05:59 05/15/18 05:59 05/15/18 05:59 05/15/18 05:59 05/14/18 21:00 Active Medications Acetaminophen (Tylenol -) 650 mg PO Q6H PRN PRN Reason: FEVER Last Admin: 05/14/18 14:03 Dose: 650 mg Albuterol Sulfate (Ventolin 0.083% Nebulizer Soln -) 1 amp NEB Q4H PRN PRN Reason: SHORT OF BREATH/WHEEZING Albuterol/Ipratropium (Duoneb -) 1 amp NEB RQID EDILBERTO Last Admin: 05/15/18 07:19 Dose: 1 amp Benzocaine/Menthol (Cepacol Lozenge -) 1 each MM PRN PRN PRN Reason: SORE THROAT Guaifenesin/Codeine Phosphate (Robitussin Ac -) 5 ml PO BID EDILBERTO Last Admin: 05/14/18 21:58 Dose: 5 ml Piperacillin Sod/Tazobactam (Sod 3.375 gm/ Dextrose) 50 mls @ 100 mls/hr IVPB Q8H-IV EDILBERTO; Protocol Last Admin: 05/15/18 02:00 Dose: 100 mls/hr Phenol/Menthol (Chloraseptic -) 1 spray MM Q6HPO PRN PRN Reason: SORE THROAT Last Admin: 05/11/18 21:53 Dose: 1 spray Constitutional: Yes: No Distress, Cachectic, Thin Eyes: Yes: Conjunctiva Clear, EOM Intact HENT: Yes: Atraumatic, Normocephalic Neck: Yes: Supple, Trachea Midline Cardiovascular: Yes: Regular Rate and Rhythm Respiratory: Yes: Cough, Diminished, On Nasal O2, Rhonchi, SOB, SOB on Exertion , Tachypnea. No: Accessory Muscle Use, Rales, Stridor, Wheezes ...Inspection: Yes: WNL ...Clubbing: No Gastrointestinal: Yes: Normal Bowel Sounds, Soft Renal/: Yes: Anaya Present Musculoskeletal: Yes: Back Pain, Joint Stiffness Extremities: Yes: WNL Edema: No Peripheral Pulses WNL: Yes Integumentary: Yes: WNL Neurological: Yes: Alert, Oriented, Confusion Psychiatric: Yes: Alert, Oriented Labs: Laboratory Results - last 24 hr 05/14/18 05/15/18 05/15/18 16:00 06:00 06:00 WBC 4.9 5.6 RBC 2.66 L 3.04 L Hgb 8.4 L 9.2 L Hct 24.1 L 27.7 L MCV 90.5 91.1 MCH 31.7 30.1 MCHC 35.0 33.1 RDW 15.1 15.3 Plt Count 201 D 218 MPV 8.3 8.0 Absolute Neuts (auto) 3.8 4.4 Neutrophils % 78.5 79.4 Lymphocytes % 7.7 L 6.7 L Monocytes % 11.4 H 10.0 Eosinophils % 1.5 2.8 D Basophils % 0.9 1.1 Nucleated RBC % 0 0 Sodium 137 Potassium 3.9 Chloride 104 Carbon Dioxide 25 Anion Gap 8 BUN 21 H Creatinine 0.9 Creat Clearance w eGFR > 60 Random Glucose 87 Calcium 7.7 L Total Bilirubin 0.8 AST 74 H ALT 23 Alkaline Phosphatase 249 H Total Protein 4.8 L Albumin 2.0 L Problem List - Problems (1) Lung metastases Code(s): C78.00 - SECONDARY MALIGNANT NEOPLASM OF UNSPECIFIED LUNG (2) Fever Code(s): R50.9 - FEVER, UNSPECIFIED (3) Hematuria, gross Code(s): R31.0 - GROSS HEMATURIA (4) Metastatic malignant neoplasm to prostate Code(s): C79.82 - SECONDARY MALIGNANT NEOPLASM OF GENITAL ORGANS (5) Bronchitis Code(s): J40 - BRONCHITIS, NOT SPECIFIED ACUTE OR CHRONIC (6) Shortness of breath Code(s): R06.02 - SHORTNESS OF BREATH (7) Weakness Code(s): R53.1 - WEAKNESS (8) Suspected RLL Post obstructive PNA Assessment/Plan ABX coverage per ID O2 as needed BD TX PRN Incentive Spirometry No smoking Dr Duncan Problem List - Problems (1) Lung metastases Code(s): C78.00 - SECONDARY MALIGNANT NEOPLASM OF UNSPECIFIED LUNG (2) Fever Code(s): R50.9 - FEVER, UNSPECIFIED (3) Hematuria, gross Code(s): R31.0 - GROSS HEMATURIA (4) Metastatic malignant neoplasm to prostate Code(s): C79.82 - SECONDARY MALIGNANT NEOPLASM OF GENITAL ORGANS (5) Bronchitis Code(s): J40 - BRONCHITIS, NOT SPECIFIED ACUTE OR CHRONIC (6) Shortness of breath Code(s): R06.02 - SHORTNESS OF BREATH (7) Weakness Code(s): R53.1 - WEAKNESS
--- NOTE | 2018-05-15 12:32 | PN ---
Progress Note, Physician Chief Complaint: patient not able to eat food, says that he choking on ensure no more hematuria barger cath yellow urine and barger bag yellow urine - Current Medication List Current Medications: Active Medications Acetaminophen (Tylenol -) 650 mg PO Q6H PRN PRN Reason: FEVER Last Admin: 05/14/18 14:03 Dose: 650 mg Albuterol Sulfate (Ventolin 0.083% Nebulizer Soln -) 1 amp NEB Q4H PRN PRN Reason: SHORT OF BREATH/WHEEZING Albuterol/Ipratropium (Duoneb -) 1 amp NEB RQID EDILBERTO Last Admin: 05/15/18 11:38 Dose: Not Given Benzocaine/Menthol (Cepacol Lozenge -) 1 each MM PRN PRN PRN Reason: SORE THROAT Guaifenesin/Codeine Phosphate (Robitussin Ac -) 5 ml PO BID EDILBERTO Last Admin: 05/15/18 10:03 Dose: 5 ml Piperacillin Sod/Tazobactam (Sod 3.375 gm/ Dextrose) 50 mls @ 100 mls/hr IVPB Q8H-IV EDILBERTO; Protocol Last Admin: 05/15/18 10:03 Dose: 100 mls/hr Phenol/Menthol (Chloraseptic -) 1 spray MM Q6HPO PRN PRN Reason: SORE THROAT Last Admin: 05/11/18 21:53 Dose: 1 spray - Objective Vital Signs: Vital Signs Temperature 98.5 F 05/15/18 05:59 Pulse Rate 81 05/15/18 05:59 Respiratory Rate 20 05/15/18 05:59 Blood Pressure 96/48 L 05/15/18 05:59 O2 Sat by Pulse Oximetry (%) 98 05/14/18 21:00 Constitutional: Yes: Calm, Thin Neck: Yes: Trachea Midline Cardiovascular: Yes: Regular Rate and Rhythm, S1, S2 Respiratory: Yes: CTA Bilaterally Gastrointestinal: Yes: Normal Bowel Sounds, Soft Edema: No Neurological: Yes: Alert, Oriented Labs: CBC, BMP 05/15/18 06:00 05/15/18 06:00 INR, PTT INR 1.10 (0.83-1.09) H 05/10/18 07:30 Problem List - Problems (1) Metastatic malignant neoplasm to prostate Assessment/Plan: heme on board no more hematuria clear yellow urine no more CBI Code(s): C79.82 - SECONDARY MALIGNANT NEOPLASM OF GENITAL ORGANS (2) Bacteremia Assessment/Plan: on zosyn Microbiology 05/11/18 18:00 Blood - Peripheral Venous Blood Culture - Preliminary Lactose Fermenting Neg Bacilli awaiting repeat bllod culture Code(s): R78.81 - BACTEREMIA (3) Pneumonia Assessment/Plan: RLL on cxr gavin alysha eval r/p aspiration NPO till swallow eval is done ivf Code(s): J18.9 - PNEUMONIA, UNSPECIFIED ORGANISM Qualifiers: Pneumonia type: due to unspecified organism Laterality: right Lung location: lower lobe of lung Qualified Code(s): J18.1 - Lobar pneumonia, unspecified organism (4) Anemia Assessment/Plan: iron studies noted will give venofer Code(s): D64.9 - ANEMIA, UNSPECIFIED
--- NOTE | 2018-05-15 12:36 | PN ---
Progress Note (short form) - Note Progress Note: above noted CBI had to be restarted for recurrent GH urine now clear on CBI on Zosyn as per ID while awaiting cultures abd soft would d/c CBI tomorrow if urine remains clear Problem List - Problems (1) Hematuria, gross Code(s): R31.0 - GROSS HEMATURIA (2) Metastatic malignant neoplasm to prostate Code(s): C79.82 - SECONDARY MALIGNANT NEOPLASM OF GENITAL ORGANS
[2018-05-15] MEDS ORDERED: IRON SUCROSE INJECTION 200 MG in SODIUM CHLORIDE 90 ML IVPB ONE (13:15)
[2018-05-15] MEDS: SODIUM CHLORIDE 1,000 ML IV SCH (13:57)
--- NOTE | 2018-05-15 15:54 | PN ---
Progress Note, Physician History of Present Illness: stable cbi had been started repeat blood cx noted hematuria resolved - Current Medication List Current Medications: Active Medications Acetaminophen (Tylenol -) 650 mg PO Q6H PRN PRN Reason: FEVER Last Admin: 05/14/18 14:03 Dose: 650 mg Albuterol Sulfate (Ventolin 0.083% Nebulizer Soln -) 1 amp NEB Q4H PRN PRN Reason: SHORT OF BREATH/WHEEZING Albuterol/Ipratropium (Duoneb -) 1 amp NEB RQID EDILBERTO Last Admin: 05/15/18 11:38 Dose: Not Given Benzocaine/Menthol (Cepacol Lozenge -) 1 each MM PRN PRN PRN Reason: SORE THROAT Guaifenesin/Codeine Phosphate (Robitussin Ac -) 5 ml PO BID EDILBERTO Last Admin: 05/15/18 10:03 Dose: 5 ml Piperacillin Sod/Tazobactam (Sod 3.375 gm/ Dextrose) 50 mls @ 100 mls/hr IVPB Q8H-IV EDILBERTO; Protocol Last Admin: 05/15/18 10:03 Dose: 100 mls/hr Sodium Chloride (Normal Saline -) 1,000 mls @ 75 mls/hr IV ASDIR EDILBERTO Last Admin: 05/15/18 13:57 Dose: 75 mls/hr Phenol/Menthol (Chloraseptic -) 1 spray MM Q6HPO PRN PRN Reason: SORE THROAT Last Admin: 05/11/18 21:53 Dose: 1 spray - Objective Vital Signs: Vital Signs Temperature 98.0 F 05/15/18 15:02 Pulse Rate 99 H 05/15/18 15:02 Respiratory Rate 20 05/15/18 10:00 Blood Pressure 108/48 L 05/15/18 10:00 O2 Sat by Pulse Oximetry (%) 98 05/14/18 21:00 Constitutional: Yes: No Distress, Calm Cardiovascular: Yes: S1, S2 Respiratory: Yes: On Nasal O2, Poor Air Entry Gastrointestinal: Yes: Normal Bowel Sounds, Soft Musculoskeletal: Yes: WNL Extremities: Yes: WNL Neurological: Yes: Alert, Oriented Psychiatric: Yes: Alert, Oriented Labs: CBC, BMP 05/15/18 06:00 05/15/18 06:00 INR, PTT INR 1.10 (0.83-1.09) H 05/10/18 07:30 Assessment/Plan Problem List - Problems (1) Fever Code(s): R50.9 - FEVER, UNSPECIFIED (2) Hematuria, gross Code(s): R31.0 - GROSS HEMATURIA (3) Metastatic malignant neoplasm to prostate Code(s): C79.82 - SECONDARY MALIGNANT NEOPLASM OF GENITAL ORGANS (4) UTI (urinary tract infection) Code(s): N39.0 - URINARY TRACT INFECTION, SITE NOT SPECIFIED Qualifiers: Urinary tract infection type: site unspecified Hematuria presence: without hematuria Qualified Code(s): N39.0 - Urinary tract infection, site not specified (5) Urinary catheter insertion/adjustment/removal Code(s): Z46.6 - ENCOUNTER FOR FITTING AND ADJUSTMENT OF URINARY DEVICE (6) Weakness Code(s): R53.1 - WEAKNESS 7 gm negative bacteremia Assessment/Plan 88 y.o. 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 Noted to have clots in urine and started on CBI. Today found to have fever of 102.4F Fever Hematuria/urinary retention Chronic indwelling barger Metastatic Prostate CA gm negative bacteremia plan continue zosyn repeat blood cx result noted continue current mgmt
--- NOTE | 2018-05-15 17:02 | CONSULT ---
Admitting History and Physical - Admission Chief Complaint: Hematuria, suprapubic pain, - Past Medical History Pulmonary: Yes: Cancer (Prostate mets to the lung ), Pneumonia. No: Asthma, Pulmonary Embolus, Sleep Apnea Renal/: Yes: Renal Calculi (s/p lithotripsy) Heme/Onc: Yes: Cancer, Other (Metastatic Prostate CA (lungs/spine)) - Advance Directives Advance Directives: Yes: Health Care Proxy - Smoking History Smoking history: Never smoked Have you smoked in the past 12 months: No - Alcohol/Substance Use Hx Alcohol Use: No History of Substance Use: reports: None - Social History ADL: Family Assistance History of Recent Travel: No History - Admission Reason For Visit: GROSS HEMATURIA - Hearing Hearing: Normal Speech Evaluation - Communication Primary Language: ROMANSH Communication: Yes: Within Normal Limits Oral Expression Ability: Yes: No Impairment - Speech Production Apraxia: No Able to Make Needs Known: Yes: WNL Intelligibility: Yes: Moderately Impaired - Speech Characteristics Voice Loudness: Moderately Soft/Quiet Voice Pitch: Yes: Limited Variation, Pitch Breaks Speech Pattern: Normal Speech Clarity: < 50% (secondary to low volume) Nasal Resonance: Hyponasal/Denasal Articulation: Yes: Precise Voice, Other Observations: Yes: Mouth Breathing Voice Comment: Low vocal intensity. difficult to understand - Language/Auditory Comprehension Follows: Yes: 1 Stage Simple Commands (WFL), 2 Stage Simple Commands (WFL), Complex Commands Observation: Able to respond to yes/no queries: Yes, Yes/No Confusion: No, Comprehends Conversational Speech: No, Benefits from Slow Speech: No, Benefits from Repetiton: No, Benefits from Increased Volume of Speech: No - Language/Verbal Expression Able to Respond to Simple Queries: Yes: WNL Able to Communicate Wants and Needs: Yes: Mildly Impaired Functional Communication Status: Yes: WNL Aware of Errors: Yes Attempts to Correct Errors: Yes Use of Gestures: No Written Expression: Not examined Oral Expression: Language WNL speech intelligibility reduced secondary to low volume, reduced airway protection and weak cough. Reading Comprehension: Not examined Calculations: Not examined Attention: Yes: Intact - Memory/Perception long-term Memory: Yes: Mildly Impaired Short Term Memory: Yes: Mildly Impaired - Swallow Evaluation/Bedside Assessment Current Nutritional Intake: Soft, Thin Liquids, Other (Chopped solids) Oral Secretions: Yes: WFL Tracheostomy Present: No Patient on Ventilator: No Dentition: Yes: Adequate Facial Symmetry at Rest: Symmetrical Facial Symmetry on Retraction: Symmetrical Facial Movement: Controlled Sensation: Normal Facial Comment: WFL for speech and swallowing purposes Jaw Position: Open at Rest Against Resistance Opening: Normal Against Resistance Closing: Normal Pucker Lips: Normal Smile: Normal Lips, Comment: WFL for speech and swallowing purposes Lingual Movement: Normal Lingual Speed of Movement: Normal Lingual Movement Strgth Against Opposition: Normal Lingual Movement Characteristics: Normal Lingual Comment: WFL for speech and swallowing purposes Soft Palate Description: Normal Color, Wide Arch Hard Palate Description: Normal Color, Wide Arch Gag Reflex: Strong Bite Reflex: Present Velopharyngeal Movement: Normal Laryngeal Elevation: Impaired (2-4 second delay) Laryngeal Movement: Able to Palpate, Labored,delay initiation Needs Assistance: Yes Rate of Intake: WFL Bolus Size: WFL Chewing: WFL Oral Prep Time: WFL A-P Transit: WFL Coughing/Throat Clear: Yes (secondary to poor secretion management ) Other Findings/Remarks: 8 yo male seen by POLYMER SCIENTIST for swallow eval to r/o dysphagia. PMX includes prostate CA with metastasis to lung and spine, hematuria, UTI. Admitted to [facility] for Suprapubic pain. Current diet soft solids with thin liquids Pt given po trials of puree and soft solids with assistance revealed good acceptance, adequate bolus formation with mastication and transport. Pharyngeal swallow is delayed 2-4 seconds. Coughing observed after the swallow once during trial Pt given po trials of thin and thicken liquids with minimal assistance via cup and straw revealed good acceptance, adequate bolus control and transport. Pharyngeal swallow is delayed 2-4 seconds. Coughing observed after the swallow with thin liquids especially using a straw. No s/s aspiration with thicken liquids. Recommendations - Speech Evaluation, Impression/Plan Impression: 8 yo male present with moderate pharyngeal phase dysphagia solids and liquids with postive signs of aspiration with thin liquids. Speech is disordered with low volume and weak airway protection. Longterm Goals: tolerate the least restrictive diet without s/s of aspiration. Short Term Goals: tolerate soft solids and nectar thicken liquids without s/s of aspiration. - Dysphagia Impressions/Plan Swallowing Skills: Impaired Dysphagia Impressions: Moderate Impairment (Pharyngeal phase) *Silent aspiration: cannot be R/O at bedside Dysphagia Treatment Plan: Small Bites, Safe Rate, 1/2 tsp. at a time, Elevate HOB during feed, Other (NO STRAWS with liquids) Dysphagia Evaluation Summary: Continue soft solids and change liquids to nectar thicken. Observe standard aspiration precautions. crush meds in applesauce. Consider MBS to determine aspiration and volume. Results given verbally to insulation cupola charger Terry and to pcp via chart. POLYMER SCIENTIST to follow up. Recommendations: Modified Barium Swallow - Recommendations Diet Consistency: 1 - 2 Soft Items Medication Administration: Crushed with applesauce Liquids: [place] Thick
[2018-05-16] MEDS ORDERED: PIPERACILLIN/TAZOBACTAM 3.375 GM VIAL IVPB ONE ×3 (01:22→17:27)
[2018-05-16] MEDS: PIPERACILLIN/TAZOB 3.375 GM 3.375 GM in DEXTROSE 5%-WATER - 50 ML IVPB SCH ×3 (01:26→17:32)
[2018-05-16] MEDS: SODIUM CHLORIDE 1,000 ML IV SCH ×2 (06:10→23:01)
[2018-05-16 07:22] LABS: EOS % 2.3 % (0-4.5); HEMATOCRIT 24.8 % (35.4-49); HEMOGLOBIN 8.1 GM/dL (11.7-16.9); LYMPH % 6.5 % (8-40); MCH 30.1 pg (25.7-33.7); MCHC 32.7 g/dl (32.0-35.9); MEAN CELL VOLUME 92.1 fl (80-96); MEAN PLT VOLUME 8.1 fl (7.5-11.1); MONO % 9.7 % (3.8-10.2); NEUT % 80.5 % (42.8-82.8); PLATELET COUNT 242 K/MM3 (134-434); RBC 2.69 M/mm3 (4.00-5.60); RDW 15.5 % (11.9-15.9); WHITE BLOOD COUNT 5.8 K/mm3 (4.0-10.0)
[2018-05-16] MEDS: ALBUTEROL SO4 2.5/IPRATROPIUM 0.5 INH SOL 3 ML VIAL.NEB. NEB SCH ×4 (07:34→22:30)
[2018-05-16 08:08] LABS: ALBUMIN 1.8 g/dl (3.4-5.0); ALK PHOS 195 U/L (45-117); ANION GAP 8 MMOL/L (8-16); BILIRUBIN,TOTAL 0.5 mg/dL (0.2-1); BLOOD UREA NITROGEN 18 mg/dL (7-18); CALCIUM 7.9 mg/dL (8.5-10.1); CHLORIDE 108 mmol/L (98-107); CO2 24 mmol/L (21-32); CREATININE 0.8 mg/dL (0.55-1.3); GLUCOSE,RANDOM 89 mg/dL (74-106); POTASSIUM 3.6 mmol/L (3.5-5.1); SGOT/AST 68 U/L (15-37); SGPT/ALT 22 U/L (13-61); SODIUM 140 mmol/L (136-145); TOT PROT 4.4 g/dl (6.4-8.2)
[2018-05-16] MEDS ORDERED: DEXTROSE 5%-WATER - 50 ML IVPB ONE ×2 (09:43→17:27)
[2018-05-16] MEDS: guaiFENesin/CODEINE 5 ML UNIT-DOSE CUPS PO SCH ×2 (09:54→22:59)
--- NOTE | 2018-05-16 13:11 | PN ---
Progress Note, Physician History of Present Illness: stable no new issues still with cough foleys off oand on heamturia - Current Medication List Current Medications: Active Medications Acetaminophen (Tylenol -) 650 mg PO Q6H PRN PRN Reason: FEVER Last Admin: 05/14/18 14:03 Dose: 650 mg Albuterol Sulfate (Ventolin 0.083% Nebulizer Soln -) 1 amp NEB Q4H PRN PRN Reason: SHORT OF BREATH/WHEEZING Albuterol/Ipratropium (Duoneb -) 1 amp NEB RQID EDILBERTO Last Admin: 05/16/18 11:04 Dose: Not Given Benzocaine/Menthol (Cepacol Lozenge -) 1 each MM PRN PRN PRN Reason: SORE THROAT Guaifenesin/Codeine Phosphate (Robitussin Ac -) 5 ml PO BID EDILBERTO Last Admin: 05/16/18 09:54 Dose: 5 ml Piperacillin Sod/Tazobactam (Sod 3.375 gm/ Dextrose) 50 mls @ 100 mls/hr IVPB Q8H-IV EDILBERTO; Protocol Last Admin: 05/16/18 09:54 Dose: 100 mls/hr Sodium Chloride (Normal Saline -) 1,000 mls @ 75 mls/hr IV ASDIR EDILBERTO Last Admin: 05/16/18 06:10 Dose: 75 mls/hr Phenol/Menthol (Chloraseptic -) 1 spray MM Q6HPO PRN PRN Reason: SORE THROAT Last Admin: 05/11/18 21:53 Dose: 1 spray - Objective Vital Signs: Vital Signs Temperature 98.8 F 05/16/18 05:37 Pulse Rate 90 05/16/18 05:37 Respiratory Rate 20 05/16/18 05:37 Blood Pressure 90/45 L 05/16/18 05:37 O2 Sat by Pulse Oximetry (%) 98 05/15/18 21:00 Constitutional: Yes: Calm, Mild Distress, Other (failure to thrive) Cardiovascular: Yes: S1, S2 Respiratory: Yes: Regular, CTA Bilaterally Genitourinary: Yes: Barger Present, Hematuria Extremities: Yes: WNL Neurological: Yes: Alert, Oriented Psychiatric: Yes: Alert, Oriented Labs: CBC, BMP 05/16/18 06:00 05/16/18 06:00 INR, PTT INR 1.10 (0.83-1.09) H 05/10/18 07:30 Assessment/Plan Problem List - Problems (1) Fever Code(s): R50.9 - FEVER, UNSPECIFIED (2) Hematuria, gross Code(s): R31.0 - GROSS HEMATURIA (3) Metastatic malignant neoplasm to prostate Code(s): C79.82 - SECONDARY MALIGNANT NEOPLASM OF GENITAL ORGANS (4) UTI (urinary tract infection) Code(s): N39.0 - URINARY TRACT INFECTION, SITE NOT SPECIFIED Qualifiers: Urinary tract infection type: site unspecified Hematuria presence: without hematuria Qualified Code(s): N39.0 - Urinary tract infection, site not specified (5) Urinary catheter insertion/adjustment/removal Code(s): Z46.6 - ENCOUNTER FOR FITTING AND ADJUSTMENT OF URINARY DEVICE (6) Weakness Code(s): R53.1 - WEAKNESS 7 gm negative bacteremia Assessment/Plan 88 y.o. 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 Noted to have clots in urine and started on CBI. Today found to have fever of 102.4F Fever Hematuria/urinary retention Chronic indwelling barger Metastatic Prostate CA gm negative bacteremia plan continue zosyn nutrition monitor for heamturia rest as per the team
--- NOTE | 2018-05-16 15:21 | PN ---
Progress Note, Physician History of Present Illness: pulmonary alert,no distress,-sob,-congestion - Current Medication List Current Medications: Active Medications Acetaminophen (Tylenol -) 650 mg PO Q6H PRN PRN Reason: FEVER Last Admin: 05/14/18 14:03 Dose: 650 mg Albuterol Sulfate (Ventolin 0.083% Nebulizer Soln -) 1 amp NEB Q4H PRN PRN Reason: SHORT OF BREATH/WHEEZING Albuterol/Ipratropium (Duoneb -) 1 amp NEB RQID EDILBERTO Last Admin: 05/16/18 11:04 Dose: Not Given Benzocaine/Menthol (Cepacol Lozenge -) 1 each MM PRN PRN PRN Reason: SORE THROAT Guaifenesin/Codeine Phosphate (Robitussin Ac -) 5 ml PO BID EDILBERTO Last Admin: 05/16/18 09:54 Dose: 5 ml Piperacillin Sod/Tazobactam (Sod 3.375 gm/ Dextrose) 50 mls @ 100 mls/hr IVPB Q8H-IV EDILBERTO; Protocol Last Admin: 05/16/18 09:54 Dose: 100 mls/hr Sodium Chloride (Normal Saline -) 1,000 mls @ 75 mls/hr IV ASDIR EDILBERTO Last Admin: 05/16/18 06:10 Dose: 75 mls/hr Phenol/Menthol (Chloraseptic -) 1 spray MM Q6HPO PRN PRN Reason: SORE THROAT Last Admin: 05/11/18 21:53 Dose: 1 spray - Objective Vital Signs: Vital Signs Temperature 98.1 F 05/16/18 10:00 Pulse Rate 90 05/16/18 10:00 Respiratory Rate 20 05/16/18 10:00 Blood Pressure 104/53 L 05/16/18 10:00 O2 Sat by Pulse Oximetry (%) 98 05/15/18 21:00 Constitutional: Yes: Calm, Thin Eyes: Yes: WNL HENT: Yes: WNL Neck: Yes: WNL Cardiovascular: Yes: Regular Rate and Rhythm, S1, S2 Respiratory: Yes: Diminished Gastrointestinal: Yes: Normal Bowel Sounds, Soft Extremities: Yes: WNL Edema: No Labs: CBC, BMP 05/16/18 06:00 05/16/18 06:00 INR, PTT INR 1.10 (0.83-1.09) H 05/10/18 07:30 Assessment/Plan Problem List - Problems (1) Lung metastases Code(s): C78.00 - SECONDARY MALIGNANT NEOPLASM OF UNSPECIFIED LUNG (2) Fever Code(s): R50.9 - FEVER, UNSPECIFIED (3) Hematuria, gross Code(s): R31.0 - GROSS HEMATURIA (4) Metastatic malignant neoplasm to prostate Code(s): C79.82 - SECONDARY MALIGNANT NEOPLASM OF GENITAL ORGANS (5) Bronchitis Code(s): J40 - BRONCHITIS, NOT SPECIFIED ACUTE OR CHRONIC (6) Shortness of breath Code(s): R06.02 - SHORTNESS OF BREATH (7) Weakness Code(s): R53.1 - WEAKNESS Assessment/Plan Empiric ABX coverage per ID O2 as needed BD TX DR CARTER
--- NOTE | 2018-05-16 17:32 | PN ---
Progress Note, Physician Chief Complaint: Gross Hematuria History of Present Illness: Previous notes and events reviewed awake and alert NAD denies chest pain or sob hematuria noted on examination wbc nl - Current Medication List Current Medications: Active Medications Acetaminophen (Tylenol -) 650 mg PO Q6H PRN PRN Reason: FEVER Last Admin: 05/14/18 14:03 Dose: 650 mg Albuterol Sulfate (Ventolin 0.083% Nebulizer Soln -) 1 amp NEB Q4H PRN PRN Reason: SHORT OF BREATH/WHEEZING Albuterol/Ipratropium (Duoneb -) 1 amp NEB RQID [facility] Last Admin: 05/16/18 16:10 Dose: 1 amp Benzocaine/Menthol (Cepacol Lozenge -) 1 each MM PRN PRN PRN Reason: SORE THROAT Guaifenesin/Codeine Phosphate (Robitussin Ac -) 5 ml PO BID [facility] Last Admin: 05/16/18 09:54 Dose: 5 ml Piperacillin Sod/Tazobactam (Sod 3.375 gm/ Dextrose) 50 mls @ 100 mls/hr IVPB Q8H-IV [facility]; Protocol Last Admin: 05/16/18 09:54 Dose: 100 mls/hr Sodium Chloride (Normal Saline -) 1,000 mls @ 75 mls/hr IV ASDIR [facility] Last Admin: 05/16/18 06:10 Dose: 75 mls/hr Phenol/Menthol (Chloraseptic -) 1 spray MM Q6HPO PRN PRN Reason: SORE THROAT Last Admin: 05/11/18 21:53 Dose: 1 spray - Objective Vital Signs: Vital Signs Temperature 97.8 F 05/16/18 15:57 Pulse Rate 86 05/16/18 15:57 Respiratory Rate 20 05/16/18 15:57 Blood Pressure 92/44 L 05/16/18 15:57 O2 Sat by Pulse Oximetry (%) 98 05/15/18 21:00 Constitutional: Yes: Cachectic, Mild Distress Eyes: Yes: Conjunctiva Clear Neck: Yes: Supple Cardiovascular: Yes: Regular Rate and Rhythm Respiratory: Yes: Regular, CTA Bilaterally, On Nasal O2 Gastrointestinal: Yes: Normal Bowel Sounds, Soft, Tenderness (generalized) Genitourinary: Yes: Anaya Present, Hematuria Musculoskeletal: Yes: Muscle Weakness Extremities: Yes: WNL Edema: Yes Edema: LLE: 1+, RLE: 1+ Integumentary: Yes: WNL Neurological: Yes: Alert, Pre-Existing Deficit Psychiatric: Yes: Alert Labs: CBC, BMP 05/16/18 06:00 05/16/18 06:00 INR, PTT INR 1.10 (0.83-1.09) H 05/10/18 07:30 <Charis Naranjo - Last Filed: 05/16/18 17:35> - Current Medication List Current Medications: Active Medications Acetaminophen (Tylenol -) 650 mg PO Q6H PRN PRN Reason: FEVER Last Admin: 05/14/18 14:03 Dose: 650 mg Albuterol Sulfate (Ventolin 0.083% Nebulizer Soln -) 1 amp NEB Q4H PRN PRN Reason: SHORT OF BREATH/WHEEZING Albuterol/Ipratropium (Duoneb -) 1 amp NEB RQID [facility] Last Admin: 05/17/18 07:31 Dose: 1 amp Benzocaine/Menthol (Cepacol Lozenge -) 1 each MM PRN PRN PRN Reason: SORE THROAT Guaifenesin/Codeine Phosphate (Robitussin Ac -) 5 ml PO BID [facility] Last Admin: 05/16/18 22:59 Dose: 5 ml Piperacillin Sod/Tazobactam (Sod 3.375 gm/ Dextrose) 50 mls @ 100 mls/hr IVPB Q8H-IV [facility]; Protocol Last Admin: 05/17/18 02:43 Dose: 100 mls/hr Sodium Chloride (Normal Saline -) 1,000 mls @ 75 mls/hr IV ASDIR [facility] Last Admin: 05/16/18 23:01 Dose: 75 mls/hr Phenol/Menthol (Chloraseptic -) 1 spray MM Q6HPO PRN PRN Reason: SORE THROAT Last Admin: 05/11/18 21:53 Dose: 1 spray - Objective Vital Signs: Vital Signs Temperature 98.4 F 05/17/18 06:00 Pulse Rate 79 05/17/18 06:00 Respiratory Rate 20 05/16/18 15:57 Blood Pressure 102/46 L 05/17/18 06:00 O2 Sat by Pulse Oximetry (%) 98 05/15/18 21:00 Labs: INR, PTT INR 1.10 (0.83-1.09) H 05/10/18 07:30 <Cecilia Pulido - Last Filed: 05/17/18 08:39> Problem List - Problems (1) Anemia Code(s): D64.9 - ANEMIA, UNSPECIFIED (2) Bacteremia Code(s): R78.81 - BACTEREMIA (3) Fever Code(s): R50.9 - FEVER, UNSPECIFIED (4) Hematuria, gross Code(s): R31.0 - GROSS HEMATURIA (5) Lung metastases Code(s): C78.00 - SECONDARY MALIGNANT NEOPLASM OF UNSPECIFIED LUNG (6) Metastatic malignant neoplasm to prostate Code(s): C79.82 - SECONDARY MALIGNANT NEOPLASM OF GENITAL ORGANS <Charis Naranjo - Last Filed: 05/16/18 17:35> - Problems (1) Hematuria, gross Code(s): R31.0 - GROSS HEMATURIA (2) Metastatic malignant neoplasm to prostate Code(s): C79.82 - SECONDARY MALIGNANT NEOPLASM OF GENITAL ORGANS (3) History of dysphagia Code(s): Z87.19 - PERSONAL HISTORY OF OTHER DISEASES OF THE DIGESTIVE SYSTEM (4) Weakness Code(s): R53.1 - WEAKNESS <Cecilia Pulido - Last Filed: 05/17/18 08:39> Assessment/Plan -cont IV ABT per ID -urology on board, CBI discontinued by Dr Tobin -flush catheter as needed for irrigation if no urine output noted -strict I&O -FC care -H/H stable but noted to begin to trend down, will cont to trend H/H -LFT elev but trend down, will monitor -O2 via NC PRN, bronchodilators -keep SpO2 >90% -dvt ppx -fall precaution -pending speech eval -soft diet <Charis Naranjo - Last Filed: 05/16/18 17:35> PATIENT SEEN AND EXAMINED AND I AGREE WITH THE ABOVE NOTE <Cecilia Pulido - Last Filed: 05/17/18 08:39>
--- NOTE | 2018-05-16 17:46 | CONSULT ---
Consult - text type - Consultation Consultation Note: 88 yo male w hematuria was on cbi now to sd draining pink urine Irrigates well w ns Hct 24 transfuse prn for medical reasons hold cbi for now as cath draining
--- NOTE | 2018-05-16 17:57 | PN ---
Progress Note, INFIRMARY ATTENDANT - Note Progress Note: 88 yo male seen at bedside for follow up to swallow eval with recommendations for 1-2 soft item and nectar thicken liquids. Pt is lethargic today and does not appear appropriate for MBS at this time (pcp and charging manipulator in agreement). Pt nutritional intake continue to hover at 25-50% consumption. Recommendations: continue current diet 1-2 soft items with nectar thicken liquids as tolerated. Consider MBS when pt is medically ankita. Observe standard aspiration precautions. Results given to charge attendant and to pcp via chart.
--- NOTE | 2018-05-16 23:05 | PN ---
Progress Note (short form) - Note Progress Note: patient seen and examined hematuria AFVSs Cor: RSR, No murmurs, No gallops Lungs: Clear to P&A Abd: Soft, Normal bowel sounds, No organomegaly Ext:No significant edema Labs/meds reviewed a/p 88 y/o wth metastatic prostate cancer. refused Xtandi and luprn vivien past. Liver/ lung/bone mets poor performance status Hematuria --CBI refusing amicar due to theoretical risk of thromboses info given on amicar and other hormonal therapies for prostate cA PATIENT RELUCTANT TO TAKE
[2018-05-17] MEDS ORDERED: PIPERACILLIN/TAZOBACTAM 3.375 GM VIAL IVPB ONE ×3 (02:39→16:33)
[2018-05-17] MEDS ORDERED: DEXTROSE 5%-WATER - 50 ML IVPB ONE ×3 (02:40→16:33)
[2018-05-17] MEDS: PIPERACILLIN/TAZOB 3.375 GM 3.375 GM in DEXTROSE 5%-WATER - 50 ML IVPB SCH ×3 (02:43→17:05)
[2018-05-17] MEDS: ALBUTEROL SO4 2.5/IPRATROPIUM 0.5 INH SOL 3 ML VIAL.NEB. NEB SCH ×4 (07:31→21:15)
[2018-05-17 08:33] LABS: BASO % 0.6 % (0-2.0); EOS % 1.3 % (0-4.5); HEMATOCRIT 23.6 % (35.4-49); HEMOGLOBIN 8.2 GM/dL (11.7-16.9); LYMPH % 7.8 % (8-40); MCH 31.7 pg (25.7-33.7); MCHC 34.8 g/dl (32.0-35.9); MEAN CELL VOLUME 91.3 fl (80-96); MEAN PLT VOLUME 8.2 fl (7.5-11.1); MONO % 8.8 % (3.8-10.2); NEUT % 81.5 % (42.8-82.8); PLATELET COUNT 321 K/MM3 (134-434); RBC 2.58 M/mm3 (4.00-5.60); RDW 15.8 % (11.9-15.9); WHITE BLOOD COUNT 6.9 K/mm3 (4.0-10.0)
[2018-05-17 09:27] LABS: ALBUMIN 1.9 g/dl (3.4-5.0); ALK PHOS 195 U/L (45-117); ANION GAP 10 MMOL/L (8-16); BILIRUBIN,TOTAL 0.7 mg/dL (0.2-1); BLOOD UREA NITROGEN 15 mg/dL (7-18); CALCIUM 8.1 mg/dL (8.5-10.1); CHLORIDE 112 mmol/L (98-107); CO2 21 mmol/L (21-32); CREATININE 0.7 mg/dL (0.55-1.3); GLUCOSE,RANDOM 87 mg/dL (74-106); POTASSIUM 3.4 mmol/L (3.5-5.1); SGOT/AST 71 U/L (15-37); SGPT/ALT 26 U/L (13-61); SODIUM 143 mmol/L (136-145); TOT PROT 4.6 g/dl (6.4-8.2)
--- NOTE | 2018-05-17 09:41 | PN ---
Progress Note (short form) - Note Progress Note: Renal follow up for Hematuria Pt seen and examined at the bedside barger noted to have decreased output this am pt looks uncomfortable no complaints of pain Vital Signs Temperature 98.4 F 05/17/18 06:00 Pulse Rate 79 05/17/18 06:00 Respiratory Rate 20 05/16/18 15:57 Blood Pressure 102/46 L 05/17/18 06:00 O2 Sat by Pulse Oximetry (%) 98 05/15/18 21:00 Intake & Output 05/14/18 05/15/18 05/16/18 05/17/18 23:59 23:59 23:59 23:59 Intake Total 68683 6325 1200 875 Output Total 7600 72187 900 600 Balance 5565 -8575 300 275 NAD [address] in [address] no LE edema Dec BS, no rales RRR CBC, BMP 05/17/18 07:45 05/17/18 07:45 Current Medications Acetaminophen (Tylenol -) 650 mg PO Q6H PRN PRN Reason: FEVER Last Admin: 05/14/18 14:03 Dose: 650 mg Albuterol Sulfate (Ventolin 0.083% Nebulizer Soln -) 1 amp NEB Q4H PRN PRN Reason: SHORT OF BREATH/WHEEZING Albuterol/Ipratropium (Duoneb -) 1 amp NEB RQID [facility] Last Admin: 05/17/18 07:31 Dose: 1 amp Benzocaine/Menthol (Cepacol Lozenge -) 1 each MM PRN PRN PRN Reason: SORE THROAT Guaifenesin/Codeine Phosphate (Robitussin Ac -) 5 ml PO BID [facility] Last Admin: 05/16/18 22:59 Dose: 5 ml Piperacillin Sod/Tazobactam (Sod 3.375 gm/ Dextrose) 50 mls @ 100 mls/hr IVPB Q8H-IV [facility]; Protocol Last Admin: 05/17/18 02:43 Dose: 100 mls/hr Sodium Chloride (Normal Saline -) 1,000 mls @ 75 mls/hr IV ASDIR [facility] Last Admin: 05/16/18 23:01 Dose: 75 mls/hr Phenol/Menthol (Chloraseptic -) 1 spray MM Q6HPO PRN PRN Reason: SORE THROAT Last Admin: 05/11/18 21:53 Dose: 1 spray 88 y.o. 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 mild CKD #Hematuria #Prostate Cancer #Anemia #Lactic acidosis now resolved Renal function stable Hgb stable, no acute need for NUTRITIONALIST catheter appears to be obstructed, will need to be replaced hold IVF pending relief of catheter obstruction Trend renal function and electrolytes Urology following, CBI as per their recs Raúl Santana DO
[2018-05-17] MEDS: guaiFENesin/CODEINE 5 ML UNIT-DOSE CUPS PO SCH ×2 (09:54→22:38)
--- NOTE | 2018-05-17 10:45 | HOSP ---
Subjective - Review of Symptoms General: Yes: Fatigue Genitourinary: Yes: Hematuria, Retention Physical Examination Vital Signs: Vital Signs Temperature 98.4 F 05/17/18 06:00 Pulse Rate 79 05/17/18 06:00 Respiratory Rate 20 05/16/18 15:57 Blood Pressure 102/46 L 05/17/18 06:00 O2 Sat by Pulse Oximetry (%) 98 05/15/18 21:00 Constitutional: Yes: Anxious Gastrointestinal: Yes: Normal Bowel Sounds Labs: CBC, BMP 05/17/18 07:45 05/17/18 07:45 Hospitalist Encounter Assessment: called by RN to replace the barger catheter as the 24F pt currently has is obstructed on exam patient is laying in bed, states he feels suprapubic pressure I attempted to flush catheter, but unable to as it was obstructed patient refusing me to put in a 20 irish, since its too small for him and it will not work per patient tells me that the ER had to put a larger once as the 20 f was not helping 24 f patient currently has is not draining, so I removed it. it had a long strandy clot around the tip of the catheter when removed new 24 irish barger placed patient tolerated procedure well urine with hematuria draining urology to follow up
--- NOTE | 2018-05-17 12:49 | PN ---
Progress Note, Physician - Current Medication List Current Medications: Active Medications Acetaminophen (Tylenol -) 650 mg PO Q6H PRN PRN Reason: FEVER Last Admin: 05/14/18 14:03 Dose: 650 mg Albuterol Sulfate (Ventolin 0.083% Nebulizer Soln -) 1 amp NEB Q4H PRN PRN Reason: SHORT OF BREATH/WHEEZING Albuterol/Ipratropium (Duoneb -) 1 amp NEB RQID [facility] Last Admin: 05/17/18 11:42 Dose: 1 amp Benzocaine/Menthol (Cepacol Lozenge -) 1 each MM PRN PRN PRN Reason: SORE THROAT Guaifenesin/Codeine Phosphate (Robitussin Ac -) 5 ml PO BID [facility] Last Admin: 05/17/18 09:54 Dose: 5 ml Piperacillin Sod/Tazobactam (Sod 3.375 gm/ Dextrose) 50 mls @ 100 mls/hr IVPB Q8H-IV [facility]; Protocol Last Admin: 05/17/18 09:54 Dose: 100 mls/hr Sodium Chloride (Normal Saline -) 1,000 mls @ 75 mls/hr IV ASDIR [facility] Last Admin: 05/16/18 23:01 Dose: 75 mls/hr Phenol/Menthol (Chloraseptic -) 1 spray MM Q6HPO PRN PRN Reason: SORE THROAT Last Admin: 05/11/18 21:53 Dose: 1 spray - Objective Vital Signs: Vital Signs Temperature 98.4 F 05/17/18 08:30 Pulse Rate 79 05/17/18 08:30 Respiratory Rate 16 05/17/18 08:30 Blood Pressure 104/60 05/17/18 08:30 O2 Sat by Pulse Oximetry (%) 98 05/17/18 09:00 Cardiovascular: Yes: Regular Rate and Rhythm Respiratory: Yes: Regular, CTA Bilaterally Gastrointestinal: Yes: Normal Bowel Sounds, Soft Labs: CBC, BMP 05/17/18 07:45 05/17/18 07:45 INR, PTT INR 1.10 (0.83-1.09) H 05/10/18 07:30 Assessment/Plan - Problems (1) Fever Assessment/Plan: - CXR-infiltrate--Repeat -IV abx--on Zosyn -ID on board -Pulmonary consulted -Tylenol for fever >100.0F Code(s): R50.9 - FEVER, UNSPECIFIED (2) Hematuria, gross Assessment/Plan: -Seen by Urology--Follow up -Clots --barger changed --now urine flowing Code(s): R31.0 - GROSS HEMATURIA (3) Metastatic malignant neoplasm to prostate per urology and onc Code(s): C79.82 - SECONDARY MALIGNANT NEOPLASM OF GENITAL ORGANS (4) Anemia Assessment/Plan: -H/H stabilized after initiation of Amicar -iron profile pending -monitor trend -Seen by hematology Code(s): D64.9 - ANEMIA, UNSPECIFIED
--- NOTE | 2018-05-17 14:17 | PN ---
Progress Note, Physician History of Present Illness: events noted foleys had to be changed because of blockage now hematuria otherwise comfortable - Current Medication List Current Medications: Active Medications Acetaminophen (Tylenol -) 650 mg PO Q6H PRN PRN Reason: FEVER Last Admin: 05/14/18 14:03 Dose: 650 mg Albuterol Sulfate (Ventolin 0.083% Nebulizer Soln -) 1 amp NEB Q4H PRN PRN Reason: SHORT OF BREATH/WHEEZING Albuterol/Ipratropium (Duoneb -) 1 amp NEB RQID [facility] Last Admin: 05/17/18 11:42 Dose: 1 amp Benzocaine/Menthol (Cepacol Lozenge -) 1 each MM PRN PRN PRN Reason: SORE THROAT Guaifenesin/Codeine Phosphate (Robitussin Ac -) 5 ml PO BID [facility] Last Admin: 05/17/18 09:54 Dose: 5 ml Piperacillin Sod/Tazobactam (Sod 3.375 gm/ Dextrose) 50 mls @ 100 mls/hr IVPB Q8H-IV [facility]; Protocol Last Admin: 05/17/18 09:54 Dose: 100 mls/hr Sodium Chloride (Normal Saline -) 1,000 mls @ 75 mls/hr IV ASDIR [facility] Last Admin: 05/16/18 23:01 Dose: 75 mls/hr Phenol/Menthol (Chloraseptic -) 1 spray MM Q6HPO PRN PRN Reason: SORE THROAT Last Admin: 05/11/18 21:53 Dose: 1 spray - Objective Vital Signs: Vital Signs Temperature 98.4 F 05/17/18 08:30 Pulse Rate 79 05/17/18 08:30 Respiratory Rate 16 05/17/18 08:30 Blood Pressure 104/60 05/17/18 08:30 O2 Sat by Pulse Oximetry (%) 98 05/17/18 09:00 Constitutional: Yes: Calm, Mild Distress Cardiovascular: Yes: Regular Rate and Rhythm Respiratory: Yes: Regular, CTA Bilaterally Gastrointestinal: Yes: Normal Bowel Sounds, Soft Genitourinary: Yes: Barger Present, Hematuria Musculoskeletal: Yes: WNL Extremities: Yes: WNL Neurological: Yes: Alert, Oriented Psychiatric: Yes: Alert Labs: CBC, BMP 05/17/18 07:45 05/17/18 07:45 INR, PTT INR 1.10 (0.83-1.09) H 05/10/18 07:30 Assessment/Plan Problem List - Problems (1) Fever Code(s): R50.9 - FEVER, UNSPECIFIED (2) Hematuria, gross Code(s): R31.0 - GROSS HEMATURIA (3) Metastatic malignant neoplasm to prostate Code(s): C79.82 - SECONDARY MALIGNANT NEOPLASM OF GENITAL ORGANS (4) UTI (urinary tract infection) Code(s): N39.0 - URINARY TRACT INFECTION, SITE NOT SPECIFIED Qualifiers: Urinary tract infection type: site unspecified Hematuria presence: without hematuria Qualified Code(s): N39.0 - Urinary tract infection, site not specified (5) Urinary catheter insertion/adjustment/removal Code(s): Z46.6 - ENCOUNTER FOR FITTING AND ADJUSTMENT OF URINARY DEVICE (6) Weakness Code(s): R53.1 - WEAKNESS 7 gm negative bacteremia Assessment/Plan 88 y.o. 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 Noted to have clots in urine and started on CBI. Today found to have fever of 102.4F Fever Hematuria/urinary retention Chronic indwelling barger Metastatic Prostate CA gm negative bacteremia plan continue zosyn repeat blood cx result noted continue current mgmt will deescalate abx tomorrow
[2018-05-17] MEDS: SODIUM CHLORIDE 1,000 ML IV SCH (15:03)
[2018-05-17 15:47] LABS: URINE APPEARANCE CLOUDY; URINE BILIRUBIN NEGATIVE (<2.0 mg/dL); URINE GLUCOSE (UA) 1+ (NEGATIVE); URINE KETONE TRACE (NEGATIVE); URINE LEUK ESTERASE TRACE (NEGATIVE); URINE NITRITE NEGATIVE (NEGATIVE); URINE PROTEIN 2+ (NEGATIVE); URINE UROBILINOGEN NEGATIVE mg/dL (0.2-1.0)
[2018-05-17 17:00] LABS: URINE COLOR BROWN
[2018-05-18] MEDS ORDERED: PIPERACILLIN/TAZOBACTAM 3.375 GM VIAL IVPB ONE ×3 (01:17→17:16)
[2018-05-18] MEDS ORDERED: DEXTROSE 5%-WATER - 50 ML IVPB ONE ×3 (01:17→17:17)
[2018-05-18] MEDS: SODIUM CHLORIDE 1,000 ML IV SCH ×2 (01:18→05:18)
[2018-05-18] MEDS: PIPERACILLIN/TAZOB 3.375 GM 3.375 GM in DEXTROSE 5%-WATER - 50 ML IVPB SCH ×3 (01:19→17:50)
[2018-05-18] MEDS: ALBUTEROL SO4 2.5/IPRATROPIUM 0.5 INH SOL 3 ML VIAL.NEB. NEB SCH ×4 (07:48→20:53)
[2018-05-18] MEDS: guaiFENesin/CODEINE 5 ML UNIT-DOSE CUPS PO SCH (09:09)
[2018-05-18 09:18] LABS: BASO % 0.6 % (0-2.0); EOS % 0.1 % (0-4.5); HEMATOCRIT 23.2 % (35.4-49); HEMOGLOBIN 8.1 GM/dL (11.7-16.9); LYMPH % 2.1 % (8-40); MCH 31.7 pg (25.7-33.7); MCHC 34.9 g/dl (32.0-35.9); MEAN CELL VOLUME 90.7 fl (80-96); MEAN PLT VOLUME 7.8 fl (7.5-11.1); MONO % 4.1 % (3.8-10.2); NEUT % 93.1 % (42.8-82.8); PLATELET COUNT 397 K/MM3 (134-434); RBC 2.56 M/mm3 (4.00-5.60); RDW 15.8 % (11.9-15.9)
[2018-05-18 09:44] LABS: ALK PHOS 218 U/L (45-117); ANION GAP 8 MMOL/L (8-16); BILIRUBIN,TOTAL 0.7 mg/dL (0.2-1); BLOOD UREA NITROGEN 16 mg/dL (7-18); CALCIUM 8.1 mg/dL (8.5-10.1); CHLORIDE 116 mmol/L (98-107); CO2 23 mmol/L (21-32); CREATININE 0.9 mg/dL (0.55-1.3); GLUCOSE,RANDOM 158 mg/dL (74-106); POTASSIUM 3.4 mmol/L (3.5-5.1); SGOT/AST 52 U/L (15-37); SGPT/ALT 23 U/L (13-61); SODIUM 147 mmol/L (136-145); TOT PROT 4.8 g/dl (6.4-8.2)
[2018-05-18] MEDS ORDERED: POTASSIUM CHLORIDE TABS 20 MEQ TABLET.ER (FP) PO ONE (09:47)
--- NOTE | 2018-05-18 10:10 | PN ---
Progress Note (short form) - Note Progress Note: Renal follow up for Hematuria Pt seen and examined at the bedside barger was replaced yesterday evening but again obstructed today urine output has been decreased pt has sob sob and LE swelling Vital Signs Temperature 98.2 F 05/18/18 08:55 Pulse Rate 96 H 05/18/18 08:55 Respiratory Rate 16 05/18/18 08:55 Blood Pressure 115/60 05/18/18 08:55 O2 Sat by Pulse Oximetry (%) 98 05/17/18 21:00 Intake & Output 05/15/18 05/16/18 05/17/18 05/18/18 23:59 23:59 23:59 23:59 Intake Total 6325 1200 2025 950 Output Total 71420 900 1300 550 Balance -8575 300 725 [address] no LE edema Dec BS, no rales RRR CBC, BMP 05/18/18 08:30 05/18/18 08:30 Current Medications Acetaminophen (Tylenol -) 650 mg PO Q6H PRN PRN Reason: FEVER Last Admin: 05/14/18 14:03 Dose: 650 mg Albuterol Sulfate (Ventolin 0.083% Nebulizer Soln -) 1 amp NEB Q4H PRN PRN Reason: SHORT OF BREATH/WHEEZING Last Admin: 05/18/18 05:00 Dose: 1 amp Albuterol/Ipratropium (Duoneb -) 1 amp NEB RQID [facility] Last Admin: 05/18/18 07:48 Dose: 1 amp Benzocaine/Menthol (Cepacol Lozenge -) 1 each MM PRN PRN PRN Reason: SORE THROAT Furosemide (Lasix Injection -) 40 mg IVPUSH ONCE ONE Stop: 05/18/18 10:09 Guaifenesin/Codeine Phosphate (Robitussin Ac -) 5 ml PO BID [facility] Last Admin: 05/18/18 09:09 Dose: 5 ml Piperacillin Sod/Tazobactam (Sod 3.375 gm/ Dextrose) 50 mls @ 100 mls/hr IVPB Q8H-IV [facility]; Protocol Last Admin: 05/18/18 09:09 Dose: 100 mls/hr Phenol/Menthol (Chloraseptic -) 1 spray MM Q6HPO PRN PRN Reason: SORE THROAT Last Admin: 05/11/18 21:53 Dose: 1 spray 88 y.o. 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
[2018-05-18] MEDS ORDERED: FUROSEMIDE 40 MG/4 ML INJECTABLE VIAL IVPUSH ONE (10:30)
[2018-05-18 11:27] LABS: ANISOCYTOSIS 0; MACROCYTOSIS 0; PLATELET ESTIMATE NORMAL
--- NOTE | 2018-05-18 11:49 | PN ---
Progress Note, Physician - Current Medication List Current Medications: Active Medications Acetaminophen (Tylenol -) 650 mg PO Q6H PRN PRN Reason: FEVER Last Admin: 05/14/18 14:03 Dose: 650 mg Albuterol Sulfate (Ventolin 0.083% Nebulizer Soln -) 1 amp NEB Q4H PRN PRN Reason: SHORT OF BREATH/WHEEZING Last Admin: 05/18/18 05:00 Dose: 1 amp Albuterol/Ipratropium (Duoneb -) 1 amp NEB RQID [facility] Last Admin: 05/18/18 11:41 Dose: 1 amp Alprazolam (Xanax -) 0.25 mg PO BID PRN PRN Reason: ANXIETY Benzocaine/Menthol (Cepacol Lozenge -) 1 each MM PRN PRN PRN Reason: SORE THROAT Piperacillin Sod/Tazobactam (Sod 3.375 gm/ Dextrose) 50 mls @ 100 mls/hr IVPB Q8H-IV [facility]; Protocol Last Admin: 05/18/18 09:09 Dose: 100 mls/hr Phenol/Menthol (Chloraseptic -) 1 spray MM Q6HPO PRN PRN Reason: SORE THROAT Last Admin: 05/11/18 21:53 Dose: 1 spray - Objective Vital Signs: Vital Signs Temperature 98.2 F 05/18/18 08:55 Pulse Rate 96 H 05/18/18 08:55 Respiratory Rate 16 05/18/18 08:55 Blood Pressure 115/60 05/18/18 08:55 O2 Sat by Pulse Oximetry (%) 98 05/17/18 21:00 Cardiovascular: Yes: S1, S2 Respiratory: Yes: Diminished, Rales Gastrointestinal: Yes: Normal Bowel Sounds, Soft Labs: CBC, BMP 05/18/18 08:30 05/18/18 08:30 INR, PTT INR 1.10 (0.83-1.09) H 05/10/18 07:30 Assessment/Plan - Problems (1) Fever Assessment/Plan: - CXR-infiltrate--Repeat -IV abx--on Zosyn -ID on board -Pulmonary consulted -Tylenol for fever >100.0F Code(s): R50.9 - FEVER, UNSPECIFIED (2) Hematuria, gross Assessment/Plan: -Seen by Urology--Follow up -Clots --barger changed --now urine flowing--start cbi Code(s): R31.0 - GROSS HEMATURIA (3) Metastatic malignant neoplasm to prostate per urology and onc Code(s): C79.82 - SECONDARY MALIGNANT NEOPLASM OF GENITAL ORGANS (4) Anemia Assessment/Plan: -H/H stabilized after initiation of Amicar -iron profile pending -monitor trend -Seen by hematology Code(s): D64.9 - ANEMIA, UNSPECIFIED (5) Chf Assessment/Plan: -Lasix 40 ivp
--- NOTE | 2018-05-18 12:48 | PN ---
Progress Note, Physician History of Present Illness: events noted foleys had to be changed again urine cx send result pending - Current Medication List Current Medications: Active Medications Acetaminophen (Tylenol -) 650 mg PO Q6H PRN PRN Reason: FEVER Last Admin: 05/14/18 14:03 Dose: 650 mg Albuterol Sulfate (Ventolin 0.083% Nebulizer Soln -) 1 amp NEB Q4H PRN PRN Reason: SHORT OF BREATH/WHEEZING Last Admin: 05/18/18 05:00 Dose: 1 amp Albuterol/Ipratropium (Duoneb -) 1 amp NEB RQID [facility] Last Admin: 05/18/18 11:41 Dose: 1 amp Alprazolam (Xanax -) 0.25 mg PO BID PRN PRN Reason: ANXIETY Benzocaine/Menthol (Cepacol Lozenge -) 1 each MM PRN PRN PRN Reason: SORE THROAT Piperacillin Sod/Tazobactam (Sod 3.375 gm/ Dextrose) 50 mls @ 100 mls/hr IVPB Q8H-IV [facility]; Protocol Last Admin: 05/18/18 09:09 Dose: 100 mls/hr Phenol/Menthol (Chloraseptic -) 1 spray MM Q6HPO PRN PRN Reason: SORE THROAT Last Admin: 05/11/18 21:53 Dose: 1 spray - Objective Vital Signs: Vital Signs Temperature 98.2 F 05/18/18 08:55 Pulse Rate 96 H 05/18/18 08:55 Respiratory Rate 16 05/18/18 08:55 Blood Pressure 115/60 05/18/18 08:55 O2 Sat by Pulse Oximetry (%) 98 05/17/18 21:00 Constitutional: Yes: No Distress, Calm Cardiovascular: Yes: S1, S2 Respiratory: Yes: Regular, CTA Bilaterally Gastrointestinal: Yes: Normal Bowel Sounds, Soft Genitourinary: Yes: Barger Present, Hematuria Musculoskeletal: Yes: WNL Extremities: Yes: WNL Neurological: Yes: Alert, Oriented Psychiatric: Yes: Alert, Oriented Labs: CBC, BMP 05/18/18 08:30 05/18/18 08:30 INR, PTT INR 1.10 (0.83-1.09) H 05/10/18 07:30 Assessment/Plan Problem List - Problems (1) Fever Code(s): R50.9 - FEVER, UNSPECIFIED (2) Hematuria, gross Code(s): R31.0 - GROSS HEMATURIA (3) Metastatic malignant neoplasm to prostate Code(s): C79.82 - SECONDARY MALIGNANT NEOPLASM OF GENITAL ORGANS (4) UTI (urinary tract infection) Code(s): N39.0 - URINARY TRACT INFECTION, SITE NOT SPECIFIED Qualifiers: Urinary tract infection type: site unspecified Hematuria presence: without hematuria Qualified Code(s): N39.0 - Urinary tract infection, site not specified (5) Urinary catheter insertion/adjustment/removal Code(s): Z46.6 - ENCOUNTER FOR FITTING AND ADJUSTMENT OF URINARY DEVICE (6) Weakness Code(s): R53.1 - WEAKNESS 7 gm negative bacteremia Assessment/Plan 88 y.o. 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 Noted to have clots in urine and started on CBI. Today found to have fever of 102.4F Fever Hematuria/urinary retention Chronic indwelling barger Metastatic Prostate CA gm negative bacteremia plan continue zosyn if the urine cx negative will stop zosyn rest as per the team
--- NOTE | 2018-05-18 15:51 | HOSP ---
Subjective - Review of Symptoms General: Yes: Fatigue Gastrointestinal: Yes: Other Musculoskeletal: Yes: No Symptoms Neurological: Yes: Weakness (suprabpubic distention) Physical Examination Vital Signs: Vital Signs Temperature 98.5 F 05/18/18 14:43 Pulse Rate 105 H 05/18/18 14:43 Respiratory Rate 18 05/18/18 14:43 Blood Pressure 98/45 L 05/18/18 14:43 O2 Sat by Pulse Oximetry (%) 98 05/18/18 09:00 Constitutional: Yes: Anxious Eyes: Yes: WNL HENT: Yes: WNL Neurological: Yes: Alert, Oriented Psychiatric: Yes: Alert (hematuria, clogged barger catheter) Labs: CBC, BMP 05/18/18 08:30 05/18/18 08:30 Hospitalist Encounter Assessment: called by RN to replace the 3 way barger catheter secondary to obstruction, patient now on CBI on exam patient is laying in bed, states he feels suprapubic pressure, uncomfortable I attempted to flush the 3 way catheter, but unable to as it was obstructed, therefore I removed it. RN obtained another 3 way 24 mohawk barger catheter and I inserted it. CBI now flowing in freely. 600cc of hematuria noted in barger bag. patient more comfortable. urology to follow up
[2018-05-18] MEDS: ACETAMINOPHEN 325 MG TABLET (FP) PO PRN (20:51)
[2018-05-18] MEDS: ALPRAZolam 0.25 MG TABLET PO PRN (20:52)
[2018-05-19] MEDS ORDERED: PIPERACILLIN/TAZOBACTAM 3.375 GM VIAL IVPB ONE ×2 (01:31→10:01)
[2018-05-19] MEDS: PIPERACILLIN/TAZOB 3.375 GM 3.375 GM in DEXTROSE 5%-WATER - 50 ML IVPB SCH ×2 (01:41→10:06)
[2018-05-19] MEDS: ALBUTEROL SO4 2.5/IPRATROPIUM 0.5 INH SOL 3 ML VIAL.NEB. NEB SCH ×2 (07:15→11:20)
[2018-05-19 07:25] LABS: BASO % 0.5 % (0-2.0); EOS % 1.2 % (0-4.5); HEMATOCRIT 24.1 % (35.4-49); HEMOGLOBIN 7.8 GM/dL (11.7-16.9); LYMPH % 3.9 % (8-40); MCH 30.4 pg (25.7-33.7); MCHC 32.5 g/dl (32.0-35.9); MEAN CELL VOLUME 93.4 fl (80-96); MEAN PLT VOLUME 7.8 fl (7.5-11.1); NEUT % 89.4 % (42.8-82.8); PLATELET COUNT 385 K/MM3 (134-434); RBC 2.58 M/mm3 (4.00-5.60); RDW 16.5 % (11.9-15.9)
[2018-05-19 07:58] LABS: ALBUMIN 1.8 g/dl (3.4-5.0); ALK PHOS 196 U/L (45-117); ANION GAP 8 MMOL/L (8-16); BILIRUBIN,TOTAL 0.6 mg/dL (0.2-1); BLOOD UREA NITROGEN 21 mg/dL (7-18); CALCIUM 8.5 mg/dL (8.5-10.1); CHLORIDE 116 mmol/L (98-107); CO2 25 mmol/L (21-32); CREATININE 1.4 mg/dL (0.55-1.3); GLUCOSE,RANDOM 100 mg/dL (74-106); MAGNESIUM 2.5 mg/dL (1.8-2.4); PHOSPHOROUS 3.7 mg/dL (2.5-4.9); SGOT/AST 47 U/L (15-37); SGPT/ALT 18 U/L (13-61); SODIUM 148 mmol/L (136-145); TOT PROT 4.7 g/dl (6.4-8.2)
[2018-05-19] MEDS ORDERED: DEXTROSE 5%-WATER - 50 ML IVPB ONE (10:01)
--- NOTE | 2018-05-19 10:32 | PN ---
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 History of Present Illness: Previous notes and events reviewed awake and alert NAD denies chest pain or sob hematuria noted on examination wbc mildly elev CBI on going over weekend FC changed due to obstruction productive cough with green colored phlegm with blood tinge noted - Current Medication List Current Medications: Active Medications Acetaminophen (Tylenol -) 650 mg PO Q6H PRN PRN Reason: FEVER Last Admin: 05/18/18 20:51 Dose: 650 mg Albuterol Sulfate (Ventolin 0.083% Nebulizer Soln -) 1 amp NEB Q4H PRN PRN Reason: SHORT OF BREATH/WHEEZING Last Admin: 05/18/18 05:00 Dose: 1 amp Albuterol/Ipratropium (Duoneb -) 1 amp NEB RQID EDILBERTO Last Admin: 05/19/18 07:15 Dose: 1 amp Alprazolam (Xanax -) 0.25 mg PO BID PRN PRN Reason: ANXIETY Last Admin: 05/18/18 20:52 Dose: 0.25 mg Benzocaine/Menthol (Cepacol Lozenge -) 1 each MM PRN PRN PRN Reason: SORE THROAT Piperacillin Sod/Tazobactam (Sod 3.375 gm/ Dextrose) 50 mls @ 100 mls/hr IVPB Q8H-IV EDILBERTO; Protocol Last Admin: 05/19/18 10:06 Dose: 100 mls/hr Phenol/Menthol (Chloraseptic -) 1 spray MM Q6HPO PRN PRN Reason: SORE THROAT Last Admin: 05/11/18 21:53 Dose: 1 spray - Objective Vital Signs: Vital Signs Temperature 97.9 F 05/19/18 06:00 Pulse Rate 86 05/19/18 06:00 Respiratory Rate 18 05/19/18 06:00 Blood Pressure 104/60 05/19/18 06:00 O2 Sat by Pulse Oximetry (%) 98 05/18/18 21:00 Constitutional: Yes: Calm, Cachectic Eyes: Yes: Conjunctiva Clear Cardiovascular: Yes: Regular Rate and Rhythm Respiratory: Yes: CTA Bilaterally Gastrointestinal: Yes: Normal Bowel Sounds, Soft Genitourinary: Yes: Anaya Present Musculoskeletal: Yes: Muscle Weakness Extremities: Yes: WNL Edema: Yes Edema: LLE: 1+, RLE: 1+ Integumentary: Yes: WNL Neurological: Yes: Alert, Pre-Existing Deficit Psychiatric: Yes: Alert Labs: CBC, BMP 05/19/18 06:00 05/19/18 06:00 INR, PTT INR 1.10 (0.83-1.09) H 05/10/18 07:30 <Charis Naranjo - Last Filed: 05/19/18 10:26> - Current Medication List Current Medications: Active Medications Acetaminophen (Tylenol -) 650 mg PO Q6H PRN PRN Reason: FEVER Last Admin: 05/20/18 05:57 Dose: 650 mg Alprazolam (Xanax -) 0.25 mg PO BID PRN PRN Reason: ANXIETY Last Admin: 05/18/18 20:52 Dose: 0.25 mg Aminocaproic Acid (Amicar -) 1,000 mg PO TID EDILBERTO Last Admin: 05/20/18 05:58 Dose: 1,000 mg Benzocaine/Menthol (Cepacol Lozenge -) 1 each MM PRN PRN PRN Reason: SORE THROAT Phenol/Menthol (Chloraseptic -) 1 spray MM Q6HPO PRN PRN Reason: SORE THROAT Last Admin: 05/11/18 21:53 Dose: 1 spray - Objective Vital Signs: Vital Signs Temperature 98.5 F 05/20/18 05:57 Pulse Rate 95 H 05/20/18 05:57 Respiratory Rate 18 05/20/18 05:57 Blood Pressure 102/66 05/20/18 05:57 O2 Sat by Pulse Oximetry (%) 98 05/19/18 21:00 Labs: CBC, BMP 05/19/18 06:00 05/19/18 06:00 INR, PTT INR 1.10 (0.83-1.09) H 05/19/18 21:55 Fibrinogen 367.0 mg/dL (238-498) 05/19/18 21:55 <Cecilia Pulido - Last Filed: 05/20/18 07:35> Problem List - Problems (1) Anemia Code(s): D64.9 - ANEMIA, UNSPECIFIED (2) Bacteremia Code(s): R78.81 - BACTEREMIA (3) Fever Code(s): R50.9 - FEVER, UNSPECIFIED (4) Hematuria, gross Code(s): R31.0 - GROSS HEMATURIA (5) Lung metastases Code(s): C78.00 - SECONDARY MALIGNANT NEOPLASM OF UNSPECIFIED LUNG (6) Metastatic malignant neoplasm to prostate Code(s): C79.82 - SECONDARY MALIGNANT NEOPLASM OF GENITAL ORGANS <Charis Naranjo - Last Filed: 05/19/18 10:26> - Problems (1) Hematuria, gross Code(s): R31.0 - GROSS HEMATURIA (2) Metastatic malignant neoplasm to prostate Code(s): C79.82 - SECONDARY MALIGNANT NEOPLASM OF GENITAL ORGANS (3) History of dysphagia Code(s): Z87.19 - PERSONAL HISTORY OF OTHER DISEASES OF THE DIGESTIVE SYSTEM (4) Weakness Code(s): R53.1 - WEAKNESS <Cecilia Pulido - Last Filed: 05/20/18 07:35> Assessment/Plan -cont IV ABT per ID -urology on board -FC with CBI,cont to have hematuria -flush catheter as needed for irrigation if no urine output noted -pulm consult for blood tinged sputum, pending Chest CT w/o contrast -strict I&O -FC care -H/H stable but noted to begin to trend down, will cont to trend H/H -LFT elev, nephrology on board, will cont to trend -O2 via NC PRN, bronchodilators -keep SpO2 >90% -dvt ppx -fall precaution -pending speech eval -soft diet <Charis Naranjo - Last Filed: 05/19/18 10:26> PATIENT SEEN AND EXAMINED AND I AGREE WITH ABOVE NOTE <Cecilia Pulido - Last Filed: 05/20/18 07:35>
[2018-05-19] MEDS: ACETAMINOPHEN 325 MG TABLET (FP) PO PRN (12:12)
--- NOTE | 2018-05-19 13:00 | PN ---
Progress Note (short form) - Note Progress Note: PULMONARY States breathing slightly improved post lasix yesterday. Vital Signs Period Temp Pulse Resp BP Sys/Mckay Pulse Ox Last 24 Hr 97.9 F-99.2 F 85-105 18-18 98-116/43-60 98 Gen: weak appearing Heart: RRR Lung: scattered basilar rales Abd: palpable mass RLQ Ext: + edema CBC, BMP 05/19/18 06:00 05/19/18 06:00 Active Medications Acetaminophen (Tylenol -) 650 mg PO Q6H PRN PRN Reason: FEVER Last Admin: 05/19/18 12:12 Dose: 650 mg Albuterol Sulfate (Ventolin 0.083% Nebulizer Soln -) 1 amp NEB Q4H PRN PRN Reason: SHORT OF BREATH/WHEEZING Last Admin: 05/18/18 05:00 Dose: 1 amp Albuterol/Ipratropium (Duoneb -) 1 amp NEB RQID EDILBERTO Last Admin: 05/19/18 11:20 Dose: 1 amp Alprazolam (Xanax -) 0.25 mg PO BID PRN PRN Reason: ANXIETY Last Admin: 05/18/18 20:52 Dose: 0.25 mg Benzocaine/Menthol (Cepacol Lozenge -) 1 each MM PRN PRN PRN Reason: SORE THROAT Piperacillin Sod/Tazobactam (Sod 3.375 gm/ Dextrose) 50 mls @ 100 mls/hr IVPB Q8H-IV EDILBERTO; Protocol Last Admin: 05/19/18 10:06 Dose: 100 mls/hr Phenol/Menthol (Chloraseptic -) 1 spray MM Q6HPO PRN PRN Reason: SORE THROAT Last Admin: 05/11/18 21:53 Dose: 1 spray A/P Metastatic Prostate Ca Hematuria Acute Kidney Injury UTI Enterococcal Bacteremia Sepsis Hyperlipidemia - continue antibiotics - bladder scan - lasix per renal - monitor urine output, creatinine - O2 to keep Spo2 >90% - DVT prophylaxis
--- NOTE | 2018-05-19 13:30 | PN ---
Progress Note, Physician History of Present Illness: speech and swallow done d/w the team patient probably aspirating urine cx negative - Current Medication List Current Medications: Active Medications Acetaminophen (Tylenol -) 650 mg PO Q6H PRN PRN Reason: FEVER Last Admin: 05/19/18 12:12 Dose: 650 mg Albuterol Sulfate (Ventolin 0.083% Nebulizer Soln -) 1 amp NEB Q4H PRN PRN Reason: SHORT OF BREATH/WHEEZING Last Admin: 05/18/18 05:00 Dose: 1 amp Albuterol/Ipratropium (Duoneb -) 1 amp NEB RQID EDILBERTO Last Admin: 05/19/18 11:20 Dose: 1 amp Alprazolam (Xanax -) 0.25 mg PO BID PRN PRN Reason: ANXIETY Last Admin: 05/18/18 20:52 Dose: 0.25 mg Benzocaine/Menthol (Cepacol Lozenge -) 1 each MM PRN PRN PRN Reason: SORE THROAT Phenol/Menthol (Chloraseptic -) 1 spray MM Q6HPO PRN PRN Reason: SORE THROAT Last Admin: 05/11/18 21:53 Dose: 1 spray - Objective Vital Signs: Vital Signs Temperature 98.3 F 05/19/18 08:00 Pulse Rate 89 05/19/18 08:00 Respiratory Rate 20 05/19/18 08:00 Blood Pressure 100/59 L 05/19/18 08:00 O2 Sat by Pulse Oximetry (%) 98 05/19/18 08:00 Constitutional: Yes: No Distress, Calm, Other (failure to thrive) Cardiovascular: Yes: S1, S2 Respiratory: Yes: Regular, On Nasal O2, Rhonchi Gastrointestinal: Yes: Normal Bowel Sounds, Soft Genitourinary: Yes: Barger Present, Other (on cbi) Musculoskeletal: Yes: WNL Extremities: Yes: WNL Neurological: Yes: Alert, Oriented Psychiatric: Yes: Alert, Oriented Labs: CBC, BMP 05/19/18 06:00 05/19/18 06:00 INR, PTT INR 1.10 (0.83-1.09) H 05/10/18 07:30 Assessment/Plan Problem List - Problems (1) Fever Code(s): R50.9 - FEVER, UNSPECIFIED (2) Hematuria, gross Code(s): R31.0 - GROSS HEMATURIA (3) Metastatic malignant neoplasm to prostate Code(s): C79.82 - SECONDARY MALIGNANT NEOPLASM OF GENITAL ORGANS (4) UTI (urinary tract infection) Code(s): N39.0 - URINARY TRACT INFECTION, SITE NOT SPECIFIED Qualifiers: Urinary tract infection type: site unspecified Hematuria presence: without hematuria Qualified Code(s): N39.0 - Urinary tract infection, site not specified (5) Urinary catheter insertion/adjustment/removal Code(s): Z46.6 - ENCOUNTER FOR FITTING AND ADJUSTMENT OF URINARY DEVICE (6) Weakness Code(s): R53.1 - WEAKNESS 7 gm negative bacteremia Assessment/Plan 88 y.o. 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 Noted to have clots in urine and started on CBI. Today found to have fever of 102.4F Fever Hematuria/urinary retention Chronic indwelling barger Metastatic Prostate CA gm negative bacteremia plan will stop zosyn changing diet to puree will watch without abx for now if he aspirates and has issues will restart him on abx
--- NOTE | 2018-05-19 13:35 | PN ---
Progress Note (short form) - Note Progress Note: Renal follow up for Hematuria Pt seen and examined at the bedside complains of abd pain CBI running has mild sob received lasix yesterday Vital Signs Temperature 98.3 F 05/19/18 08:00 Pulse Rate 89 05/19/18 08:00 Respiratory Rate 20 05/19/18 08:00 Blood Pressure 100/59 L 05/19/18 08:00 O2 Sat by Pulse Oximetry (%) 98 05/19/18 08:[address] no LE edema Dec BS, no rales RRR CBC, BMP 05/19/18 06:00 05/19/18 06:00 Current Medications Acetaminophen (Tylenol -) 650 mg PO Q6H PRN PRN Reason: FEVER Last Admin: 05/19/18 12:12 Dose: 650 mg Albuterol Sulfate (Ventolin 0.083% Nebulizer Soln -) 1 amp NEB Q4H PRN PRN Reason: SHORT OF BREATH/WHEEZING Last Admin: 05/18/18 05:00 Dose: 1 amp Albuterol/Ipratropium (Duoneb -) 1 amp NEB RQID EDILBERTO Last Admin: 05/19/18 11:20 Dose: 1 amp Alprazolam (Xanax -) 0.25 mg PO BID PRN PRN Reason: ANXIETY Last Admin: 05/18/18 20:52 Dose: 0.25 mg Benzocaine/Menthol (Cepacol Lozenge -) 1 each MM PRN PRN PRN Reason: SORE THROAT Phenol/Menthol (Chloraseptic -) 1 spray MM Q6HPO PRN PRN Reason: SORE THROAT Last Admin: 05/11/18 21:53 Dose: 1 spray 88 y.o. male with PMH of Prostate CA with metastasis to lungs and lumbar spine, chronic indwelling barger catheter, renal calculi s/p lithotripsy, and HLD presented to the ER due to persistent hematuria #Azotemia/SUKHI #Hematuria #Prostate Cancer #Anemia #Lactic acidosis now resolved Cr amrit to 1.4 today, likely a result of obstruction in urine flow CBI is running today but pt still has bladder distension unclear if this is urine retention or metastatic process will have bladder scan done today Lasix PRN for overt sob Trend H/H Urology follow up Raúl Santana DO
--- NOTE | 2018-05-19 13:38 | PN ---
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 Liver/lung/bone mets. This is my first consult with this pt. Oriented. Good historian. Impaired respiratory support with breathy voice, impaired sustained phonation ( 1 sec). Mediastinum involvement? r/o Vocal cord paralysis suspected. Extensive metastatic disease. Pt dislikes diet downgrade to puree/nectar. Strong suspicion for aspiration on thin liquid. MBS indicated but says he can not leave the floor Pt not tolerating/eating eggs,waffles etc. Suspect stasis/aspiration REC: Dys puree, thinned out with gravy. Magic cup TID Ensure Compact TID Monitor pulmonary/nutritional status MBS when medically able to go to XRAY dept Consider ENT to r/o Vocal cord paralysis. Consider Palliative care. over the summer. Full code.
--- NOTE | 2018-05-19 14:27 | PN ---
Progress Note (short form) - Note Progress Note: hematuria recurred necesitating restarting CBI urine now pink on CBI abd soft pt agreeable to starting Amicar nursing to notify Hematology Problem List - Problems (1) Hematuria, gross Code(s): R31.0 - GROSS HEMATURIA (2) Metastatic malignant neoplasm to prostate Code(s): C79.82 - SECONDARY MALIGNANT NEOPLASM OF GENITAL ORGANS
--- NOTE | 2018-05-19 20:55 | PN ---
Progress Note (short form) - Note Progress Note: patient seen and examined hematuria AFVSs Cor: RSR, No murmurs, No gallops Lungs: Clear to P&A Abd: Soft, Normal bowel sounds, No organomegaly Ext:No significant edema Labs/meds reviewed a/p 88 y/o wth metastatic prostate cancer. refused Xtandi and luprn vivien past. Liver/ lung/bone mets poor performance status Hematuria --CBI AGREEABle to amicar check pt/ptt/fibinogen start amicar 1g tid and titrate discussed side effects,beneftis/risks cardiology ocnsult to monitor for thrombotic side effects info mATERIAL GIVEN ON CASODEX/LUPRON/AMICAR
[2018-05-19 22:26] LABS: INR 1.1 (0.83-1.09)
[2018-05-19 22:29] LABS: ACTIVATED PTT 27.4 SECONDS (25.2-36.5)
[2018-05-19] MEDS: AMINOCAPROIC ACID 500 MG TABLET PO SCH (23:09)
[2018-05-20] MEDS: ACETAMINOPHEN 325 MG TABLET (FP) PO PRN ×3 (05:57→22:11)
[2018-05-20] MEDS: AMINOCAPROIC ACID 500 MG TABLET PO SCH ×3 (05:58→22:12)
[2018-05-20 08:28] LABS: HEMATOCRIT 20.7 % (35.4-49); HEMOGLOBIN 7.1 GM/dL (11.7-16.9); MCH 31.2 pg (25.7-33.7); MCHC 34.3 g/dl (32.0-35.9); MEAN PLT VOLUME 7.4 fl (7.5-11.1); PLATELET COUNT 451 K/MM3 (134-434); RBC 2.27 M/mm3 (4.00-5.60); RDW 16.1 % (11.9-15.9); WHITE BLOOD COUNT 8.8 K/mm3 (4.0-10.0)
[2018-05-20 09:18] LABS: ALBUMIN 1.8 g/dl (3.4-5.0); ALK PHOS 188 U/L (45-117); ANION GAP 7 MMOL/L (8-16); BILIRUBIN,TOTAL 0.4 mg/dL (0.2-1); BLOOD UREA NITROGEN 23 mg/dL (7-18); CHLORIDE 117 mmol/L (98-107); CO2 26 mmol/L (21-32); GLUCOSE,RANDOM 88 mg/dL (74-106); POTASSIUM 3.5 mmol/L (3.5-5.1); SGOT/AST 43 U/L (15-37); SGPT/ALT 15 U/L (13-61); SODIUM 150 mmol/L (136-145); TOT PROT 4.6 g/dl (6.4-8.2)
[2018-05-20 09:46] LABS: INR 1.14 (0.83-1.09); PROTHROMBIN TIME (PATIENT) 13.5 SEC (9.7-13.0)
[2018-05-20 09:49] LABS: ACTIVATED PTT 26.8 SECONDS (25.2-36.5)
--- NOTE | 2018-05-20 11:39 | PN ---
Progress Note, Physician Chief Complaint: Hematuria Metastatic disease History of Present Illness: Started on Amicar CBI running Still bloody urine through the barger H/H dropped today - Current Medication List Current Medications: Active Medications Acetaminophen (Tylenol -) 650 mg PO Q6H PRN PRN Reason: FEVER Last Admin: 05/20/18 05:57 Dose: 650 mg Alprazolam (Xanax -) 0.25 mg PO BID PRN PRN Reason: ANXIETY Last Admin: 05/18/18 20:52 Dose: 0.25 mg Aminocaproic Acid (Amicar -) 1,000 mg PO TID EDILBERTO Last Admin: 05/20/18 05:58 Dose: 1,000 mg Benzocaine/Menthol (Cepacol Lozenge -) 1 each MM PRN PRN PRN Reason: SORE THROAT Phenol/Menthol (Chloraseptic -) 1 spray MM Q6HPO PRN PRN Reason: SORE THROAT Last Admin: 05/11/18 21:53 Dose: 1 spray - Objective Vital Signs: Vital Signs Temperature 98.5 F 05/20/18 05:57 Pulse Rate 95 H 05/20/18 05:57 Respiratory Rate 18 05/20/18 05:57 Blood Pressure 102/66 05/20/18 05:57 O2 Sat by Pulse Oximetry (%) 98 05/19/18 21:00 Constitutional: Yes: No Distress, Calm, Cachectic Cardiovascular: Yes: Regular Rate and Rhythm Respiratory: Yes: Regular Gastrointestinal: Yes: Normal Bowel Sounds, Soft Genitourinary: Yes: Barger Present Musculoskeletal: Yes: Muscle Weakness Extremities: Yes: WNL Edema: No Peripheral Pulses WNL: Yes Neurological: Yes: Alert, Pre-Existing Deficit Psychiatric: Yes: Alert Labs: CBC, BMP 05/20/18 07:10 05/20/18 07:10 INR, PTT INR 1.14 (0.83-1.09) H 05/20/18 07:10 Fibrinogen 367.0 mg/dL (238-498) 05/19/18 21:55 Problem List - Problems (1) Fever Assessment/Plan: -afebrile now -finished IV abx -ID on board -Pulmonary consulted -Tylenol for fever >100.0F Code(s): R50.9 - FEVER, UNSPECIFIED (2) Hematuria, gross Assessment/Plan: -Seen by Urology -CBI running bloody Code(s): R31.0 - GROSS HEMATURIA (3) Metastatic malignant neoplasm to prostate Code(s): C79.82 - SECONDARY MALIGNANT NEOPLASM OF GENITAL ORGANS (4) Anemia Assessment/Plan: -Started on Amicar -Drop in H/H -2 units of PRBC -iron profile-% low -start feosol 352 mg po bid -stool OB -GI consult -monitor trend -Seen by hematology Code(s): D64.9 - ANEMIA, UNSPECIFIED Assessment/Plan see problem list Physical therapy
--- NOTE | 2018-05-20 13:20 | PN ---
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 REC: Dys puree, thinned out with gravy. Magic cup TID Pt dislikes Ensure Compact -d/c Monitor pulmonary/nutritional status MBS when medically able to go to XRAY dept Consider discussing end of life wishes with pt/ consider Palliative care. over the summer. Full code. Pt told me he does not want to be intubated. Reported to nursing. Seems appropriate but forgetful
--- NOTE | 2018-05-20 13:26 | PN ---
Progress Note, Physician History of Present Illness: patient stable still wiht hematuria failure to thrive - Current Medication List Current Medications: Active Medications Acetaminophen (Tylenol -) 650 mg PO Q6H PRN PRN Reason: FEVER Last Admin: 05/20/18 12:13 Dose: 650 mg Alprazolam (Xanax -) 0.25 mg PO BID PRN PRN Reason: ANXIETY Last Admin: 05/18/18 20:52 Dose: 0.25 mg Aminocaproic Acid (Amicar -) 1,000 mg PO TID EDILBERTO Last Admin: 05/20/18 05:58 Dose: 1,000 mg Benzocaine/Menthol (Cepacol Lozenge -) 1 each MM PRN PRN PRN Reason: SORE THROAT Phenol/Menthol (Chloraseptic -) 1 spray MM Q6HPO PRN PRN Reason: SORE THROAT Last Admin: 05/11/18 21:53 Dose: 1 spray - Objective Vital Signs: Vital Signs Temperature 98.2 F 05/20/18 08:00 Pulse Rate 94 H 05/20/18 08:00 Respiratory Rate 20 05/20/18 08:00 Blood Pressure 100/60 05/20/18 08:00 O2 Sat by Pulse Oximetry (%) 98 05/20/18 08:00 Constitutional: Yes: Calm, Mild Distress Cardiovascular: Yes: S1, S2 Respiratory: Yes: Regular, CTA Bilaterally Gastrointestinal: Yes: Normal Bowel Sounds, Soft Genitourinary: Yes: Barger Present, Hematuria Musculoskeletal: Yes: WNL Extremities: Yes: WNL Neurological: Yes: Alert, Oriented Psychiatric: Yes: Alert, Oriented Labs: CBC, BMP 05/20/18 07:10 05/20/18 07:10 INR, PTT INR 1.14 (0.83-1.09) H 05/20/18 07:10 Fibrinogen 367.0 mg/dL (238-498) 05/19/18 21:55 Assessment/Plan Problem List - Problems (1) Fever Code(s): R50.9 - FEVER, UNSPECIFIED (2) Hematuria, gross Code(s): R31.0 - GROSS HEMATURIA (3) Metastatic malignant neoplasm to prostate Code(s): C79.82 - SECONDARY MALIGNANT NEOPLASM OF GENITAL ORGANS (4) UTI (urinary tract infection) Code(s): N39.0 - URINARY TRACT INFECTION, SITE NOT SPECIFIED Qualifiers: Urinary tract infection type: site unspecified Hematuria presence: without hematuria Qualified Code(s): N39.0 - Urinary tract infection, site not specified (5) Urinary catheter insertion/adjustment/removal Code(s): Z46.6 - ENCOUNTER FOR FITTING AND ADJUSTMENT OF URINARY DEVICE (6) Weakness Code(s): R53.1 - WEAKNESS 7 gm negative bacteremia Assessment/Plan 88 y.o. 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 Noted to have clots in urine and started on CBI. Today found to have fever of 102.4F Fever Hematuria/urinary retention Chronic indwelling barger Metastatic Prostate CA gm negative bacteremia plan continue without abx nutrition asp precautions rest as per the team cbi
[2018-05-20] MEDS ORDERED: PT OWN MED DRAWER 7, Y5N ONE (13:48)
[2018-05-20] MEDS ORDERED: QUEtiapine FUMARATE 25 MG TABLET (FP) PO SCH (14:57)
[2018-05-20] MEDS: DEXTROSE 5%-WATER - 1,000 ML IV SCH (18:54)
[2018-05-20] MEDS: FERROUS SO4 325 MG TABLET (FP) PO SCH (18:56)
[2018-05-20] MEDS ORDERED: FUROSEMIDE 40 MG/4 ML INJECTABLE VIAL IVPUSH ONE (20:00)
[2018-05-21] MEDS: DEXTROSE 5%-WATER - 1,000 ML IV SCH ×2 (01:04→16:48)
[2018-05-21] MEDS: AMINOCAPROIC ACID 500 MG TABLET PO SCH ×3 (06:11→22:55)
[2018-05-21 07:29] LABS: BASO % 0.7 % (0-2.0); EOS % 3.6 % (0-4.5); HEMATOCRIT 30.1 % (35.4-49); HEMOGLOBIN 10.7 GM/dL (11.7-16.9); LYMPH % 5.6 % (8-40); MCH 31.6 pg (25.7-33.7); MCHC 35.5 g/dl (32.0-35.9); MEAN CELL VOLUME 89.1 fl (80-96); MEAN PLT VOLUME 7.7 fl (7.5-11.1); MONO % 4.3 % (3.8-10.2); NEUT % 85.8 % (42.8-82.8); PLATELET COUNT 417 K/MM3 (134-434); RBC 3.38 M/mm3 (4.00-5.60); RDW 16.8 % (11.9-15.9); WHITE BLOOD COUNT 8.3 K/mm3 (4.0-10.0)
[2018-05-21 08:01] LABS: ALBUMIN 1.9 g/dl (3.4-5.0); ALK PHOS 203 U/L (45-117); ANION GAP 5 MMOL/L (8-16); BILIRUBIN,TOTAL 0.7 mg/dL (0.2-1); BLOOD UREA NITROGEN 26 mg/dL (7-18); CALCIUM 8.4 mg/dL (8.5-10.1); CHLORIDE 111 mmol/L (98-107); CO2 31 mmol/L (21-32); GLUCOSE,RANDOM 98 mg/dL (74-106); POTASSIUM 3.4 mmol/L (3.5-5.1); SGOT/AST 45 U/L (15-37); SGPT/ALT 12 U/L (13-61); SODIUM 147 mmol/L (136-145)
[2018-05-21] MEDS: FERROUS SO4 325 MG TABLET (FP) PO SCH ×2 (08:55→16:49)
--- NOTE | 2018-05-21 10:03 | PN ---
Progress Note, Physician History of Present Illness: patient upset that he is only getting starches and sugar feels weak still with mild hematuria - Current Medication List Current Medications: Active Medications Acetaminophen (Tylenol -) 650 mg PO Q6H PRN PRN Reason: FEVER Last Admin: 05/20/18 22:11 Dose: 650 mg Alprazolam (Xanax -) 0.25 mg PO BID PRN PRN Reason: ANXIETY Last Admin: 05/18/18 20:52 Dose: 0.25 mg Aminocaproic Acid (Amicar -) 1,000 mg PO TID [facility] Last Admin: 05/21/18 06:11 Dose: 1,000 mg Benzocaine/Menthol (Cepacol Lozenge -) 1 each MM PRN PRN PRN Reason: SORE THROAT Ferrous Sulfate (Feosol -) 325 mg PO BIDWM [facility] Last Admin: 05/21/18 08:55 Dose: 325 mg Dextrose (D5w -) 1,000 mls @ 75 mls/hr IV ASDIR [facility] Last Admin: 05/21/18 01:04 Dose: 75 mls/hr Phenol/Menthol (Chloraseptic -) 1 spray MM Q6HPO PRN PRN Reason: SORE THROAT Last Admin: 05/11/18 21:53 Dose: 1 spray - Objective Vital Signs: Vital Signs Temperature 98.1 F 05/21/18 09:18 Pulse Rate 91 H 05/21/18 09:18 Respiratory Rate 18 05/21/18 09:18 Blood Pressure 119/59 L 05/21/18 09:18 O2 Sat by Pulse Oximetry (%) 98 05/20/18 22:00 Constitutional: Yes: No Distress, Calm Cardiovascular: Yes: Regular Rate and Rhythm Respiratory: Yes: Regular, CTA Bilaterally Gastrointestinal: Yes: Normal Bowel Sounds, Soft Genitourinary: Yes: Barger Present, Hematuria Musculoskeletal: Yes: WNL Extremities: Yes: WNL Labs: CBC, BMP 05/21/18 06:00 05/21/18 06:00 INR, PTT INR 1.14 (0.83-1.09) H 05/20/18 07:10 Fibrinogen 593.0 mg/dL (238-498) H D 05/20/18 07:10 Assessment/Plan Problem List - Problems (1) Fever Code(s): R50.9 - FEVER, UNSPECIFIED (2) Hematuria, gross Code(s): R31.0 - GROSS HEMATURIA (3) Metastatic malignant neoplasm to prostate Code(s): C79.82 - SECONDARY MALIGNANT NEOPLASM OF GENITAL ORGANS (4) UTI (urinary tract infection) Code(s): N39.0 - URINARY TRACT INFECTION, SITE NOT SPECIFIED Qualifiers: Urinary tract infection type: site unspecified Hematuria presence: without hematuria Qualified Code(s): N39.0 - Urinary tract infection, site not specified (5) Urinary catheter insertion/adjustment/removal Code(s): Z46.6 - ENCOUNTER FOR FITTING AND ADJUSTMENT OF URINARY DEVICE (6) Weakness Code(s): R53.1 - WEAKNESS 7 gm negative bacteremia Assessment/Plan 88 y.o. 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 Noted to have clots in urine and started on CBI. Today found to have fever of 102.4F Fever Hematuria/urinary retention Chronic indwelling barger Metastatic Prostate CA gm negative bacteremia plan continue monitoring nutrition main issue continue cbi rest as per the team
[2018-05-21] MEDS ORDERED: POTASSIUM CHLORIDE TABS 20 MEQ TABLET.ER (FP) PO ONE (11:05)
[2018-05-21] MEDS: ACETAMINOPHEN 325 MG TABLET (FP) PO PRN ×2 (11:48→18:47)
--- NOTE | 2018-05-21 12:17 | CON.GI ---
Consult Consult Specialty:: Gastroenterology Referred by:: Shaneka Flowers NP Reason for Consultation:: Anemia - History of Present Illness Chief Complaint: Anemia History of Present Illness: Patient is an 88 y/o male admitted for hematuria. I was asked to evaluate patient for anemia. Patient denies nausea, vomiting, diarrhea, dysphagia, or rectal bleeding. Patient still having hematuria. Patient depressed because he lost his recently. - History Source History Provided By: Patient - Past Medical History Pulmonary: Yes: Cancer (Prostate mets to the lung ), Pneumonia. 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 10-12 hours daily x7 days, ambulated with Rollator) ADL: Family Assistance History of Recent Travel: No Home Medications - Allergies Allergies/Adverse Reactions: Allergies Allergy/AdvReac Type Severity Reaction Status Date / Time No Known Allergies Allergy Verified 02/20/18 00:21 - Home Medications Home Medications: Ambulatory Orders Cefpodoxime Proxetil [Vantin -] 100 mg PO BID #14 tablet 02/20/18 Review of Systems - Review of Systems Constitutional: reports: No Symptoms Eyes: reports: No Symptoms HENT: reports: No Symptoms Neck: reports: No Symptoms Cardiovascular: reports: No Symptoms Respiratory: reports: No Symptoms Gastrointestinal: reports: No Symptoms Genitourinary: reports: Hematuria Breasts: reports: No Symptoms Reported Musculoskeletal: reports: Muscle Weakness Integumentary: reports: No Symptoms Neurological: reports: Pre-Existing Deficit Endocrine: reports: No Symptoms Hematology/Lymphatic: reports: No Symptoms Psychiatric: reports: No Symptoms Physical Exam-GI Vital Signs: Vital Signs Temperature 98.1 F 05/21/18 09:18 Pulse Rate 91 H 05/21/18 09:18 Respiratory Rate 18 05/21/18 09:18 Blood Pressure 119/59 L 05/21/18 09:18 O2 Sat by Pulse Oximetry (%) 98 05/20/18 22:00 Constitutional: Yes: Calm, Mild Distress Eyes: Yes: Conjunctiva Clear Cardiovascular: Yes: Regular Rate and Rhythm Respiratory: Yes: Regular, CTA Bilaterally Gastrointestinal Inspection: Yes: WNL ...Auscultate: Yes: Normoactive Bowel Sounds ...Palpate: Yes: Soft Genitourinary: Yes: Anaya Present, Hematuria Musculoskeletal: Yes: Muscle Weakness Neurological: Yes: Alert Labs: CBC, BMP 05/21/18 06:00 05/21/18 06:00 INR, PTT INR 1.14 (0.83-1.09) H 05/20/18 07:10 Fibrinogen 593.0 mg/dL (238-498) H D 05/20/18 07:10 Problem List - Problems (1) Anemia Assessment/Plan: Anemia most likely secondary to Prostate CA with mets >R continue with conservative management Stool OB pending Transfuse if Hg <8 poor candidate for further GI evaluation Code(s): D64.9 - ANEMIA, UNSPECIFIED Qualifiers: Other causes of anemia: acute posthemorrhagic
--- NOTE | 2018-05-21 12:37 | PN ---
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 Pt c/o pureed/chopped food, wants raw eggs, more protein without sugar.Cottage cheese and ground meat are "too dry" and "yogurt has too much sugar." Pt agreed to mbs, to be done today. Consider artificial saliva brfore meals.
--- NOTE | 2018-05-21 12:57 | CON.CARD ---
Consult Consult Specialty:: Cardiology Referred by:: Dr. Levy Reason for Consultation:: Amicar use - History of Present Illness Chief Complaint: Hematuria History of Present Illness: 88 y/o wth metastatic prostate cancer. refused Xtandi and lupro vivien past. Liver/ lung/bone mets, poor performance status. Admitted for recurrent hematuria and acute anemia necesitating restarting CBI and pRBC transfusion resolving since initiation of Amicar. Patient reports chronic dyspnea, denies chest pain, near or true syncope, palpitations. - History Source History Provided By: Patient Limitations to Obtaining History: Clinical Condition - Past Medical History Pulmonary: Yes: Cancer (Prostate mets to the lung ), Pneumonia. No: Asthma, Pulmonary Embolus, Sleep Apnea Renal/: Yes: Renal Calculi (s/p lithotripsy) - Alcohol/Substance Use Hx Alcohol Use: No History of Substance Use: reports: None - Smoking History Smoking history: Never smoked Have you smoked in the past 12 months: No - Social History Usual Living Arrangement: Alone (alone in the [facility] apartment without stairs to enter, has [employer]ATOR 10-12 hours daily x7 days, ambulated with Rollator) ADL: Family Assistance History of Recent Travel: No Home Medications - Allergies Allergies/Adverse Reactions: Allergies Allergy/AdvReac Type Severity Reaction Status Date / Time No Known Allergies Allergy Verified 02/20/18 00:21 - Home Medications Home Medications: Ambulatory Orders Cefpodoxime Proxetil [Vantin -] 100 mg PO BID #14 tablet 02/20/18 Review of Systems - Review of Systems Genitourinary: reports: Hematuria Vital Signs: Vital Signs Temperature 98.1 F 05/21/18 09:18 Pulse Rate 91 H 05/21/18 09:18 Respiratory Rate 18 05/21/18 09:18 Blood Pressure 119/59 L 05/21/18 09:18 O2 Sat by Pulse Oximetry (%) 98 05/20/18 22:00 Constitutional: Yes: No Distress, Calm, Cachectic, Thin Neck: Yes: Supple Respiratory: Yes: Regular, Diminished Gastrointestinal: Yes: Soft, Hypoactive Bowel Sounds Renal/: Yes: Anaya Present, Hematuria Cardiovascular: Yes: Regular Rate and Rhythm JVD: No Carotid Bruit: No Edema: No - Other Data Labs, Other Data: CBC, BMP 05/21/18 06:00 05/21/18 06:00 INR, PTT INR 1.14 (0.83-1.09) H 05/20/18 07:10 Fibrinogen 593.0 mg/dL (238-498) H D 05/20/18 07:10 SR @ 85 RBBB, LAFB, PAC Imaging - Results Chest X-ray: Report Reviewed (Worsening pleural/pulmonary changes) Problem List - Problems (1) Anemia Code(s): D64.9 - ANEMIA, UNSPECIFIED Qualifiers: Other causes of anemia: acute posthemorrhagic (2) Hematuria, gross Code(s): R31.0 - GROSS HEMATURIA (3) Lung metastases Code(s): C78.00 - SECONDARY MALIGNANT NEOPLASM OF UNSPECIFIED LUNG (4) Metastatic malignant neoplasm to prostate Code(s): C79.82 - SECONDARY MALIGNANT NEOPLASM OF GENITAL ORGANS (5) Shortness of breath Code(s): R06.02 - SHORTNESS OF BREATH (6) Urinary catheter insertion/adjustment/removal Code(s): Z46.6 - ENCOUNTER FOR FITTING AND ADJUSTMENT OF URINARY DEVICE Assessment/Plan 1. Recurrent hematuria post CBI 2. 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 Acute anemia post 2 U pRBC 4. Renal calculi s/p lithotripsy 5. SUKHI improved P:1. Started on Amicar, tolerating thus far, monitor Hgb and transfuse to maintain Hgb>8.0 2. Diuresis and free water repletion with monitor diuretic response, renal fxn and electrolytes 3. CBI completed with resolution of hematuria 4. Thank you for consultative opportunity
[2018-05-21] MEDS ORDERED: PT OWN MED DRAWER 7, Y5N ONE (13:03)
--- NOTE | 2018-05-21 15:19 | PN ---
Progress Note, Physician History of Present Illness: pulmonary awake,no distress,-sob - Current Medication List Current Medications: Active Medications Acetaminophen (Tylenol -) 650 mg PO Q6H PRN PRN Reason: FEVER Last Admin: 05/21/18 11:48 Dose: 650 mg Alprazolam (Xanax -) 0.25 mg PO BID PRN PRN Reason: ANXIETY Last Admin: 05/18/18 20:52 Dose: 0.25 mg Aminocaproic Acid (Amicar -) 1,000 mg PO TID [facility] Last Admin: 05/21/18 13:31 Dose: 1,000 mg Benzocaine/Menthol (Cepacol Lozenge -) 1 each MM PRN PRN PRN Reason: SORE THROAT Ferrous Sulfate (Feosol -) 325 mg PO BIDWM [facility] Last Admin: 05/21/18 08:55 Dose: 325 mg Furosemide (Lasix Injection -) 20 mg IVPUSH DAILY [facility] Dextrose (D5w -) 1,000 mls @ 75 mls/hr IV ASDIR [facility] Last Admin: 05/21/18 01:04 Dose: 75 mls/hr Phenol/Menthol (Chloraseptic -) 1 spray MM Q6HPO PRN PRN Reason: SORE THROAT Last Admin: 05/11/18 21:53 Dose: 1 spray - Objective Vital Signs: Vital Signs Temperature 98.1 F 05/21/18 09:18 Pulse Rate 91 H 05/21/18 09:18 Respiratory Rate 18 05/21/18 09:18 Blood Pressure 119/59 L 05/21/18 09:18 O2 Sat by Pulse Oximetry (%) 98 05/20/18 22:00 Constitutional: Yes: Calm, Thin Eyes: Yes: WNL HENT: Yes: WNL Neck: Yes: WNL Cardiovascular: Yes: Regular Rate and Rhythm, S1, S2 Respiratory: Yes: Rhonchi (few rhonchi) Gastrointestinal: Yes: Normal Bowel Sounds, Soft Extremities: Yes: WNL Edema: No Labs: CBC, BMP 05/21/18 06:00 05/21/18 06:00 INR, PTT INR 1.14 (0.83-1.09) H 05/20/18 07:10 Fibrinogen 593.0 mg/dL (238-498) H D 05/20/18 07:10 Assessment/Plan Problem List - Problems (1) Lung metastases Code(s): C78.00 - SECONDARY MALIGNANT NEOPLASM OF UNSPECIFIED LUNG (2) Fever Code(s): R50.9 - FEVER, UNSPECIFIED (3) Hematuria, gross Code(s): R31.0 - GROSS HEMATURIA (4) Metastatic malignant neoplasm to prostate Code(s): C79.82 - SECONDARY MALIGNANT NEOPLASM OF GENITAL ORGANS (5) Bronchitis Code(s): J40 - BRONCHITIS, NOT SPECIFIED ACUTE OR CHRONIC (6) Shortness of breath Code(s): R06.02 - SHORTNESS OF BREATH (7) Weakness Code(s): R53.1 - WEAKNESS Assessment/Plan O2 as needed BD TX DR CARTER
--- NOTE | 2018-05-21 15:38 | PN ---
Progress Note (short form) - Note Progress Note: Renal follow up for Hematuria Pt seen and examined at the bedside no acute complaints is unhappy about the food denies overt sob s/p 2 prbc transfusion yesterday Vital Signs Temperature 98.1 F 05/21/18 09:18 Pulse Rate 91 H 05/21/18 09:18 Respiratory Rate 18 05/21/18 09:18 Blood Pressure 119/59 L 05/21/18 09:18 O2 Sat by Pulse Oximetry (%) 98 05/20/18 22:[address] no LE edema Dec BS, no rales RRR CBC, BMP 05/21/18 06:00 05/21/18 06:00 Current Medications Acetaminophen (Tylenol -) 650 mg PO Q6H PRN PRN Reason: FEVER Last Admin: 05/21/18 11:48 Dose: 650 mg Alprazolam (Xanax -) 0.25 mg PO BID PRN PRN Reason: ANXIETY Last Admin: 05/18/18 20:52 Dose: 0.25 mg Aminocaproic Acid (Amicar -) 1,000 mg PO TID [facility] Last Admin: 05/21/18 13:31 Dose: 1,000 mg Benzocaine/Menthol (Cepacol Lozenge -) 1 each MM PRN PRN PRN Reason: SORE THROAT Ferrous Sulfate (Feosol -) 325 mg PO BIDWM [facility] Last Admin: 05/21/18 08:55 Dose: 325 mg Furosemide (Lasix Injection -) 20 mg IVPUSH DAILY [facility] Dextrose (D5w -) 1,000 mls @ 75 mls/hr IV ASDIR [facility] Last Admin: 05/21/18 01:04 Dose: 75 mls/hr Phenol/Menthol (Chloraseptic -) 1 spray MM Q6HPO PRN PRN Reason: SORE THROAT Last Admin: 05/11/18 21:53 Dose: 1 spray 88 y.o. male with PMH of Prostate CA with metastasis to lungs and lumbar spine, chronic indwelling barger catheter, renal calculi s/p lithotripsy, and HLD presented to the ER due to persistent hematuria #Azotemia/SUKHI #Hematuria #Prostate Cancer #Anemia #Lactic acidosis now resolved Renal function improved and stable continue D5W for management of hypernatremia started on Lasix daily for management of chest congestion trend renal function and electrolytes continue CBI for hematuria Urology following Trend H/H Raúl Santana DO
--- NOTE | 2018-05-21 16:14 | PN ---
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 History of Present Illness: Previous notes and events reviewed awake and alert NAD denies chest pain or sob hematuria noted on examination wbc nl CBI on going s/p 2U PRBC d/t Hg 7.1--current Hg 10.7 - Current Medication List Current Medications: Active Medications Acetaminophen (Tylenol -) 650 mg PO Q6H PRN PRN Reason: FEVER Last Admin: 05/21/18 11:48 Dose: 650 mg Alprazolam (Xanax -) 0.25 mg PO BID PRN PRN Reason: ANXIETY Last Admin: 05/18/18 20:52 Dose: 0.25 mg Aminocaproic Acid (Amicar -) 1,000 mg PO TID [facility] Last Admin: 05/21/18 13:31 Dose: 1,000 mg Benzocaine/Menthol (Cepacol Lozenge -) 1 each MM PRN PRN PRN Reason: SORE THROAT Ferrous Sulfate (Feosol -) 325 mg PO BIDWM [facility] Last Admin: 05/21/18 08:55 Dose: 325 mg Furosemide (Lasix Injection -) 20 mg IVPUSH DAILY [facility] Dextrose (D5w -) 1,000 mls @ 75 mls/hr IV ASDIR [facility] Last Admin: 05/21/18 01:04 Dose: 75 mls/hr Phenol/Menthol (Chloraseptic -) 1 spray MM Q6HPO PRN PRN Reason: SORE THROAT Last Admin: 05/11/18 21:53 Dose: 1 spray - Objective Vital Signs: Vital Signs Temperature 98.1 F 05/21/18 09:18 Pulse Rate 91 H 05/21/18 09:18 Respiratory Rate 18 05/21/18 09:18 Blood Pressure 119/59 L 05/21/18 09:18 O2 Sat by Pulse Oximetry (%) 98 05/20/18 22:00 Constitutional: Yes: Calm, Mild Distress Eyes: Yes: Conjunctiva Clear Cardiovascular: Yes: Regular Rate and Rhythm Respiratory: Yes: Regular Gastrointestinal: Yes: Normal Bowel Sounds, Soft Genitourinary: Yes: Anaya Present (pink tinged urine) Musculoskeletal: Yes: Muscle Weakness Extremities: Yes: WNL Edema: No Integumentary: Yes: WNL Neurological: Yes: Alert, Pre-Existing Deficit Psychiatric: Yes: Alert Labs: CBC, BMP 05/21/18 06:00 05/21/18 06:00 INR, PTT INR 1.14 (0.83-1.09) H 05/20/18 07:10 Fibrinogen 593.0 mg/dL (238-498) H D 05/20/18 07:10 <Jose ACharis - Last Filed: 05/21/18 16:08> - Current Medication List Current Medications: Active Medications Acetaminophen (Tylenol -) 650 mg PO Q6H PRN PRN Reason: FEVER Last Admin: 05/21/18 11:48 Dose: 650 mg Alprazolam (Xanax -) 0.25 mg PO BID PRN PRN Reason: ANXIETY Last Admin: 05/18/18 20:52 Dose: 0.25 mg Aminocaproic Acid (Amicar -) 1,000 mg PO TID [facility] Last Admin: 05/21/18 13:31 Dose: 1,000 mg Benzocaine/Menthol (Cepacol Lozenge -) 1 each MM PRN PRN PRN Reason: SORE THROAT Ferrous Sulfate (Feosol -) 325 mg PO BIDWM [facility] Last Admin: 05/21/18 16:49 Dose: 325 mg Furosemide (Lasix Injection -) 20 mg IVPUSH DAILY [facility] Last Admin: 05/21/18 16:47 Dose: 20 mg Dextrose (D5w -) 1,000 mls @ 75 mls/hr IV ASDIR [facility] Last Admin: 05/21/18 16:48 Dose: 75 mls/hr Phenol/Menthol (Chloraseptic -) 1 spray MM Q6HPO PRN PRN Reason: SORE THROAT Last Admin: 05/11/18 21:53 Dose: 1 spray - Objective Vital Signs: Vital Signs Temperature 98.1 F 05/21/18 09:18 Pulse Rate 91 H 05/21/18 09:18 Respiratory Rate 18 05/21/18 09:18 Blood Pressure 119/59 L 05/21/18 09:18 O2 Sat by Pulse Oximetry (%) 98 05/20/18 22:00 Labs: CBC, BMP 05/21/18 06:00 05/21/18 06:00 INR, PTT INR 1.14 (0.83-1.09) H 05/20/18 07:10 Fibrinogen 593.0 mg/dL (238-498) H D 05/20/18 07:10 <Cecilia Pulido - Last Filed: 05/21/18 16:52> Problem List - Problems (1) Anemia Code(s): D64.9 - ANEMIA, UNSPECIFIED (2) Bacteremia Code(s): R78.81 - BACTEREMIA (3) Fever Code(s): R50.9 - FEVER, UNSPECIFIED (4) Hematuria, gross Code(s): R31.0 - GROSS HEMATURIA (5) Lung metastases Code(s): C78.00 - SECONDARY MALIGNANT NEOPLASM OF UNSPECIFIED LUNG (6) Metastatic malignant neoplasm to prostate Code(s): C79.82 - SECONDARY MALIGNANT NEOPLASM OF GENITAL ORGANS <Charis Naranjo - Last Filed: 05/21/18 16:08> - Problems (1) Hematuria, gross Code(s): R31.0 - GROSS HEMATURIA (2) Metastatic malignant neoplasm to prostate Code(s): C79.82 - SECONDARY MALIGNANT NEOPLASM OF GENITAL ORGANS (3) History of dysphagia Code(s): Z87.19 - PERSONAL HISTORY OF OTHER DISEASES OF THE DIGESTIVE SYSTEM (4) Weakness Code(s): R53.1 - WEAKNESS <Cecilia Pulido - Last Filed: 05/21/18 16:52> Assessment/Plan -cont IV ABT per ID -urology on board -FC with CBI, urine is now pink tinged -flush catheter as needed for irrigation if no urine output noted -modified barium swallow performed-dysphagia puree and ground diet -strict I&O -FC care -H/H stable after transfusion, will cont to trend H/H, GI consult was made for anemia, was started on Fe BID -LFT elev, nephrology on board, will cont to trend -elev Na, nephrology on board, cont D5W -O2 via NC PRN, bronchodilators -keep SpO2 >90% -dvt ppx -fall precaution -pending speech eval -soft diet <Charis Naranjo - Last Filed: 05/21/18 16:08> PATIENT SEEN AND EXAMINED AND I AGREE WITH THE ABOVE NOTE <Cecilia Pulido - Last Filed: 05/21/18 16:52>
[2018-05-21] MEDS: FUROSEMIDE 40 MG/4 ML INJECTABLE VIAL IVPUSH SCH (16:47)
[2018-05-22] MEDS: DEXTROSE 5%-WATER - 1,000 ML IV SCH (06:41)
[2018-05-22] MEDS: AMINOCAPROIC ACID 500 MG TABLET PO SCH ×3 (06:41→22:03)
[2018-05-22 07:16] LABS: BASO % 0.8 % (0-2.0); EOS % 2.2 % (0-4.5); HEMATOCRIT 30.6 % (35.4-49); HEMOGLOBIN 10.7 GM/dL (11.7-16.9); LYMPH % 5.6 % (8-40); MCH 31.3 pg (25.7-33.7); MCHC 35.1 g/dl (32.0-35.9); MEAN CELL VOLUME 89.2 fl (80-96); MEAN PLT VOLUME 7.8 fl (7.5-11.1); MONO % 5.2 % (3.8-10.2); NEUT % 86.2 % (42.8-82.8); PLATELET COUNT 392 K/MM3 (134-434); RBC 3.43 M/mm3 (4.00-5.60); RDW 16.8 % (11.9-15.9); WHITE BLOOD COUNT 9.6 K/mm3 (4.0-10.0)
[2018-05-22 08:06] LABS: ALBUMIN 1.9 g/dl (3.4-5.0); ALK PHOS 189 U/L (45-117); ANION GAP 9 MMOL/L (8-16); BILIRUBIN,TOTAL 0.7 mg/dL (0.2-1); BLOOD UREA NITROGEN 29 mg/dL (7-18); CALCIUM 8.1 mg/dL (8.5-10.1); CHLORIDE 108 mmol/L (98-107); CO2 28 mmol/L (21-32); CREATININE 0.9 mg/dL (0.55-1.3); GLUCOSE,RANDOM 93 mg/dL (74-106); MAGNESIUM 1.9 mg/dL (1.8-2.4); POTASSIUM 3.7 mmol/L (3.5-5.1); SGOT/AST 39 U/L (15-37); SGPT/ALT 12 U/L (13-61); SODIUM 145 mmol/L (136-145); TOT PROT 4.9 g/dl (6.4-8.2)
[2018-05-22] MEDS: FERROUS SO4 325 MG TABLET (FP) PO SCH ×2 (08:40→17:43)
[2018-05-22] MEDS: FUROSEMIDE 40 MG/4 ML INJECTABLE VIAL IVPUSH SCH (10:19)
--- NOTE | 2018-05-22 10:19 | PN ---
Progress Note, Physician History of Present Illness: Resting comfortably, hematuria has cleared, Hgb stable. - Current Medication List Current Medications: Active Medications Acetaminophen (Tylenol -) 650 mg PO Q6H PRN PRN Reason: FEVER Last Admin: 05/21/18 18:47 Dose: 650 mg Alprazolam (Xanax -) 0.25 mg PO BID PRN PRN Reason: ANXIETY Last Admin: 05/18/18 20:52 Dose: 0.25 mg Aminocaproic Acid (Amicar -) 1,000 mg PO TID [facility] Last Admin: 05/22/18 06:41 Dose: 1,000 mg Benzocaine/Menthol (Cepacol Lozenge -) 1 each MM PRN PRN PRN Reason: SORE THROAT Ferrous Sulfate (Feosol -) 325 mg PO BIDWM [facility] Last Admin: 05/22/18 08:40 Dose: 325 mg Furosemide (Lasix Injection -) 20 mg IVPUSH DAILY [facility] Last Admin: 05/21/18 16:47 Dose: 20 mg Dextrose (D5w -) 1,000 mls @ 75 mls/hr IV ASDIR [facility] Last Admin: 05/22/18 06:41 Dose: 75 mls/hr Phenol/Menthol (Chloraseptic -) 1 spray MM Q6HPO PRN PRN Reason: SORE THROAT Last Admin: 05/11/18 21:53 Dose: 1 spray - Objective Vital Signs: Vital Signs Temperature 98.4 F 05/22/18 05:56 Pulse Rate 87 05/22/18 05:56 Respiratory Rate 20 05/22/18 05:56 Blood Pressure 99/51 L 05/22/18 05:56 O2 Sat by Pulse Oximetry (%) 98 05/21/18 22:00 Constitutional: Yes: No Distress, Calm, Thin Neck: Yes: Supple Cardiovascular: Yes: Regular Rate and Rhythm Respiratory: Yes: Regular, Diminished, On Nasal O2 Gastrointestinal: Yes: Normal Bowel Sounds, Soft Genitourinary: Yes: Anaya Present Edema: No Labs: CBC, BMP 05/22/18 06:30 05/22/18 06:30 INR, PTT INR 1.14 (0.83-1.09) H 05/20/18 07:10 Fibrinogen 593.0 mg/dL (238-498) H D 05/20/18 07:10 Problem List - Problems (1) Anemia Code(s): D64.9 - ANEMIA, UNSPECIFIED Qualifiers: Other causes of anemia: acute posthemorrhagic (2) Hematuria, gross Code(s): R31.0 - GROSS HEMATURIA (3) Lung metastases Code(s): C78.00 - SECONDARY MALIGNANT NEOPLASM OF UNSPECIFIED LUNG (4) Metastatic malignant neoplasm to prostate Code(s): C79.82 - SECONDARY MALIGNANT NEOPLASM OF GENITAL ORGANS (5) Shortness of breath Code(s): R06.02 - SHORTNESS OF BREATH (6) Urinary catheter insertion/adjustment/removal Code(s): Z46.6 - ENCOUNTER FOR FITTING AND ADJUSTMENT OF URINARY DEVICE Assessment/Plan 1. Recurrent hematuria post CBI 2. 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 Acute anemia post 2 U pRBC 4. Renal calculi s/p lithotripsy 5. SUKHI improved P:1. Started on Amicar, tolerating thus far, monitor Hgb and transfuse to maintain Hgb>8.0 2. Diuresis and free water repletion with monitor diuretic response, renal fxn and electrolytes 3. CBI completed with resolution of hematuria
--- NOTE | 2018-05-22 12:13 | PN ---
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 History of Present Illness: Previous notes and events reviewed awake and alert NAD denies chest pain or sob hematuria noted on examination wbc nl CBI on going, cloudy urine noted, no hematuria - Current Medication List Current Medications: Active Medications Acetaminophen (Tylenol -) 650 mg PO Q6H PRN PRN Reason: FEVER Last Admin: 05/21/18 18:47 Dose: 650 mg Alprazolam (Xanax -) 0.25 mg PO BID PRN PRN Reason: ANXIETY Last Admin: 05/18/18 20:52 Dose: 0.25 mg Aminocaproic Acid (Amicar -) 1,000 mg PO TID [facility] Last Admin: 05/22/18 06:41 Dose: 1,000 mg Benzocaine/Menthol (Cepacol Lozenge -) 1 each MM PRN PRN PRN Reason: SORE THROAT Ferrous Sulfate (Feosol -) 325 mg PO BIDWM [facility] Last Admin: 05/22/18 08:40 Dose: 325 mg Furosemide (Lasix Injection -) 20 mg IVPUSH DAILY [facility] Last Admin: 05/22/18 10:19 Dose: 20 mg Dextrose (D5w -) 1,000 mls @ 75 mls/hr IV ASDIR [facility] Last Admin: 05/22/18 06:41 Dose: 75 mls/hr Phenol/Menthol (Chloraseptic -) 1 spray MM Q6HPO PRN PRN Reason: SORE THROAT Last Admin: 05/11/18 21:53 Dose: 1 spray - Objective Vital Signs: Vital Signs Temperature 98.4 F 05/22/18 05:56 Pulse Rate 87 05/22/18 05:56 Respiratory Rate 20 05/22/18 05:56 Blood Pressure 99/51 L 05/22/18 05:56 O2 Sat by Pulse Oximetry (%) 98 05/21/18 22:00 Constitutional: Yes: Cachectic, Mild Distress Eyes: Yes: Conjunctiva Clear Cardiovascular: Yes: Regular Rate and Rhythm Respiratory: Yes: Regular, Diminished, On Nasal O2 Gastrointestinal: Yes: Normal Bowel Sounds, Soft Genitourinary: Yes: Anaya Present Musculoskeletal: Yes: Muscle Weakness Extremities: Yes: WNL Integumentary: Yes: WNL Neurological: Yes: Alert, Pre-Existing Deficit Labs: CBC, BMP 05/22/18 06:30 05/22/18 06:30 INR, PTT INR 1.14 (0.83-1.09) H 05/20/18 07:10 Fibrinogen 593.0 mg/dL (238-498) H D 05/20/18 07:10 <Charis Naranjo - Last Filed: 05/22/18 12:14> - Current Medication List Current Medications: Active Medications Acetaminophen (Tylenol -) 650 mg PO Q6H PRN PRN Reason: FEVER Last Admin: 05/21/18 18:47 Dose: 650 mg Amino Acids (Prosource No Carb Liquid Pkt) 30 ml PO BID@0800,1730 [facility] Last Admin: 05/23/18 17:30 Dose: 30 ml Aminocaproic Acid (Amicar -) 1,000 mg PO QID [facility] Benzocaine/Menthol (Cepacol Lozenge -) 1 each MM PRN PRN PRN Reason: SORE THROAT Ferrous Sulfate (Feosol -) 325 mg PO BIDWM [facility] Last Admin: 05/23/18 17:29 Dose: 325 mg Dextrose/Sodium Chloride (D5-1/2ns -) 1,000 mls @ 250 mls/hr IV PRN [facility] Mirtazapine (Remeron -) 15 mg PO HS [facility] Phenol/Menthol (Chloraseptic -) 1 spray MM Q6HPO PRN PRN Reason: SORE THROAT Last Admin: 05/11/18 21:53 Dose: 1 spray - Objective Vital Signs: Vital Signs Temperature 97.7 F 05/23/18 17:33 Pulse Rate 77 05/23/18 17:33 Respiratory Rate 18 05/23/18 17:33 Blood Pressure 98/47 L 05/23/18 17:33 O2 Sat by Pulse Oximetry (%) 97 05/23/18 09:00 Labs: CBC, BMP 05/23/18 06:30 05/23/18 06:30 INR, PTT INR 0.98 (0.83-1.09) 05/23/18 06:30 Fibrinogen 593.0 mg/dL (238-498) H D 05/20/18 07:10 <Cecilia Pulido - Last Filed: 05/23/18 21:09> Problem List - Problems (1) Anemia Code(s): D64.9 - ANEMIA, UNSPECIFIED Qualifiers: Other causes of anemia: acute posthemorrhagic (2) Bacteremia Code(s): R78.81 - BACTEREMIA (3) Fever Code(s): R50.9 - FEVER, UNSPECIFIED (4) Hematuria, gross Code(s): R31.0 - GROSS HEMATURIA (5) Lung metastases Code(s): C78.00 - SECONDARY MALIGNANT NEOPLASM OF UNSPECIFIED LUNG (6) Metastatic malignant neoplasm to prostate Code(s): C79.82 - SECONDARY MALIGNANT NEOPLASM OF GENITAL ORGANS (7) Severe malnutrition Code(s): E43 - UNSPECIFIED SEVERE PROTEIN-CALORIE MALNUTRITION <Charis Naranjo - Last Filed: 05/22/18 12:14> - Problems (1) Hematuria, gross Code(s): R31.0 - GROSS HEMATURIA (2) Metastatic malignant neoplasm to prostate Code(s): C79.82 - SECONDARY MALIGNANT NEOPLASM OF GENITAL ORGANS (3) History of dysphagia Code(s): Z87.19 - PERSONAL HISTORY OF OTHER DISEASES OF THE DIGESTIVE SYSTEM (4) Weakness Code(s): R53.1 - WEAKNESS <Cecilia Pulido - Last Filed: 05/23/18 21:09> Assessment/Plan -cont IV ABT per ID -urology on board -FC with CBI, hematuria cleared now cloudy yellow -flush catheter as needed for irrigation if no urine output noted -strict I&O -FC care -H/H stable at 10.7, will cont to monitor for downward trend -Stool OB ordered -cont with amicar -LFT elev, nephrology on board, will cont to trend -Na 145, nephrology on board, cont D5W for hypernatremia -O2 via NC PRN, bronchodilators -keep SpO2 >90% -dvt ppx -fall precaution -RD consult -pending speech eval -dysphagia diet <Charis Naranjo - Last Filed: 05/22/18 12:14> I HAVE EXAMINED THE PATIENT AND AGREE WITH ABOVE NOTE <Cecilia Pulido - Last Filed: 05/23/18 21:09>
--- NOTE | 2018-05-22 12:38 | PN ---
Progress Note (short form) - Note Progress Note: on CBI,no heme abd soft will slow down CBI Problem List - Problems (1) Hematuria, gross Code(s): R31.0 - GROSS HEMATURIA (2) Metastatic malignant neoplasm to prostate Code(s): C79.82 - SECONDARY MALIGNANT NEOPLASM OF GENITAL ORGANS
--- NOTE | 2018-05-22 12:49 | PN ---
Progress Note, [employer]E - Note Progress Note: Selected Entries 05/21/18 05/21/18 05/21/18 05:43 09:18 14:00 Breakfast 25% Lunch 25% Supper Temperature 97.8 F 98.1 F 05/21/18 05/21/18 05/22/18 18:00 22:09 02:00 Breakfast Lunch Supper 50% Temperature 97.4 F L 97.3 F L 05/22/18 05:56 Breakfast Lunch Supper Temperature 98.4 F Laboratory Tests 05/21/18 05/22/18 06:00 06:30 WBC 8.3 9.6 MBS reviewed. Poor PO intake with c/o about the food. Tuna received but insufficient rosales.Egg custard not received. Reviewed with RD. Suggest artificial saliva before meals.
--- NOTE | 2018-05-22 14:04 | PN ---
Progress Note, Physician History of Present Illness: patient seen and examined at bedside. c/o lower abd pain. denies fever, chills, headache, shortness of breath, chest pain. s/p 2 prbc on 05/20. on CBI with pink urine output in barger. - Current Medication List Current Medications: Active Medications Acetaminophen (Tylenol -) 650 mg PO Q6H PRN PRN Reason: FEVER Last Admin: 05/21/18 18:47 Dose: 650 mg Alprazolam (Xanax -) 0.25 mg PO BID PRN PRN Reason: ANXIETY Last Admin: 05/18/18 20:52 Dose: 0.25 mg Aminocaproic Acid (Amicar -) 1,000 mg PO TID [facility] Last Admin: 05/22/18 06:41 Dose: 1,000 mg Benzocaine/Menthol (Cepacol Lozenge -) 1 each MM PRN PRN PRN Reason: SORE THROAT Ferrous Sulfate (Feosol -) 325 mg PO BIDWM [facility] Last Admin: 05/22/18 08:40 Dose: 325 mg Furosemide (Lasix Injection -) 20 mg IVPUSH DAILY [facility] Last Admin: 05/22/18 10:19 Dose: 20 mg Dextrose (D5w -) 1,000 mls @ 75 mls/hr IV ASDIR [facility] Last Admin: 05/22/18 06:41 Dose: 75 mls/hr Phenol/Menthol (Chloraseptic -) 1 spray MM Q6HPO PRN PRN Reason: SORE THROAT Last Admin: 05/11/18 21:53 Dose: 1 spray - Objective Vital Signs: Vital Signs Temperature 98.5 F 05/22/18 08:00 Pulse Rate 89 05/22/18 08:00 Respiratory Rate 20 05/22/18 08:00 Blood Pressure 100/58 L 05/22/18 08:00 O2 Sat by Pulse Oximetry (%) 98 05/21/18 22:00 Constitutional: Yes: No Distress, Calm, Other (flat affect) HENT: Yes: Atraumatic, Normocephalic Cardiovascular: Yes: Regular Rate and Rhythm, S1, S2. No: Murmur Respiratory: Yes: CTA Bilaterally Gastrointestinal: Yes: Normal Bowel Sounds, Soft, Tenderness (lower abd) Genitourinary: Yes: Other (on CBI with barger, pink urine) Edema: No Integumentary: Yes: Venous Stasis Changes Neurological: Yes: Alert, Oriented Labs: CBC, BMP 05/22/18 06:30 05/22/18 06:30 INR, PTT INR 1.14 (0.83-1.09) H 05/20/18 07:10 Fibrinogen 593.0 mg/dL (238-498) H D 05/20/18 07:10 Impression/Plan Impression/Plan: 88 yo F h/o prostate CA w/ mets to lungs and lumbar spine admitted to hospital for hematuria now on CBI. Impression: hematuria on CBI prostate CA w/ mets to lung, liver and bone Plan: patient cont. to have hematuria whenever CBI is held will increase amicar to 2g BID cont. monitor H/H and plt count and urine Esequiel Cheema PGY3 Visit type - Emergency Visit Emergency Visit: No - New Patient This patient is new to me today: Yes Date on this admission: 05/22/18 - Critical Care Critical Care patient: No - Discharge Referral Referred to [facility] No
[2018-05-22] MEDS ORDERED: PT OWN MED DRAWER 7, Y5N ONE (14:25)
--- NOTE | 2018-05-22 14:51 | PN ---
Progress Note, Physician History of Present Illness: Events noted. Pt is weak but without distress. Remains afebrile. - Current Medication List Current Medications: Active Medications Acetaminophen (Tylenol -) 650 mg PO Q6H PRN PRN Reason: FEVER Last Admin: 05/21/18 18:47 Dose: 650 mg Alprazolam (Xanax -) 0.25 mg PO BID PRN PRN Reason: ANXIETY Last Admin: 05/18/18 20:52 Dose: 0.25 mg Aminocaproic Acid (Amicar -) 1,000 mg PO TID [facility] Last Admin: 05/22/18 06:41 Dose: 1,000 mg Benzocaine/Menthol (Cepacol Lozenge -) 1 each MM PRN PRN PRN Reason: SORE THROAT Ferrous Sulfate (Feosol -) 325 mg PO BIDWM [facility] Last Admin: 05/22/18 08:40 Dose: 325 mg Furosemide (Lasix Injection -) 20 mg IVPUSH DAILY [facility] Last Admin: 05/22/18 10:19 Dose: 20 mg Dextrose (D5w -) 1,000 mls @ 75 mls/hr IV ASDIR [facility] Last Admin: 05/22/18 06:41 Dose: 75 mls/hr Phenol/Menthol (Chloraseptic -) 1 spray MM Q6HPO PRN PRN Reason: SORE THROAT Last Admin: 05/11/18 21:53 Dose: 1 spray - Objective Vital Signs: Vital Signs Temperature 98.5 F 05/22/18 08:00 Pulse Rate 89 05/22/18 08:00 Respiratory Rate 20 05/22/18 08:00 Blood Pressure 100/58 L 05/22/18 08:00 O2 Sat by Pulse Oximetry (%) 98 05/21/18 22:00 Constitutional: Yes: No Distress Cardiovascular: Yes: Regular Rate and Rhythm Respiratory: Yes: Regular Gastrointestinal: Yes: Normal Bowel Sounds, Soft Genitourinary: Yes: Other (on CBI) Integumentary: Yes: WNL Neurological: Yes: Alert, Weakness Labs: CBC, BMP 05/22/18 06:30 05/22/18 06:30 INR, PTT INR 1.14 (0.83-1.09) H 05/20/18 07:10 Fibrinogen 593.0 mg/dL (238-498) H D 05/20/18 07:10 Microbiology 05/15/18 06:00 Blood - Peripheral Venous Blood Culture - Final NO GROWTH AFTER 5 DAYS INCUBATION 05/15/18 06:30 Blood - Peripheral Venous Blood Culture - Final NO GROWTH AFTER 5 DAYS INCUBATION 05/17/18 15:00 Urine - Urine - Catheterized Urine Culture - Final Yeast Like Organism 05/11/18 18:00 Blood - Peripheral Venous Blood Culture - Final NO GROWTH AFTER 5 DAYS INCUBATION 05/11/18 18:00 Blood - Peripheral Venous Blood Culture - Final Enterobacter Cloacae 05/09/18 19:00 Urine - Urine Barger Urine Culture - Final Contaminated: Please Repeat Problem List - Problems (1) Fever Code(s): R50.9 - FEVER, UNSPECIFIED (2) Hematuria, gross Code(s): R31.0 - GROSS HEMATURIA (3) Metastatic malignant neoplasm to prostate Code(s): C79.82 - SECONDARY MALIGNANT NEOPLASM OF GENITAL ORGANS (4) UTI (urinary tract infection) Code(s): N39.0 - URINARY TRACT INFECTION, SITE NOT SPECIFIED Qualifiers: Urinary tract infection type: site unspecified Hematuria presence: without hematuria Qualified Code(s): N39.0 - Urinary tract infection, site not specified (5) Urinary catheter insertion/adjustment/removal Code(s): Z46.6 - ENCOUNTER FOR FITTING AND ADJUSTMENT OF URINARY DEVICE (6) Weakness Code(s): R53.1 - WEAKNESS Assessment/Plan Gram negative Bacteremia s/p Sepsis Hematuria/urinary retention Chronic indwelling barger Metastatic Prostate CA pt now off antibiotics latest blood cultures negative afebrile, without leukocytosis continue monitor
[2018-05-22] MEDS: ALPRAZolam 0.25 MG TABLET PO PRN (16:01)
--- NOTE | 2018-05-22 18:25 | PN ---
Progress Note (short form) - Note Progress Note: Renal follow up for Hematuria Pt seen and examined at the bedside has some hematuria in CBI no sob, cp on IVF Vital Signs Temperature 98.1 F 05/22/18 18:00 Pulse Rate 77 05/22/18 18:00 Respiratory Rate 20 05/22/18 18:00 Blood Pressure 96/77 05/22/18 18:00 O2 Sat by Pulse Oximetry (%) 98 05/21/18 22:[address] no LE edema Dec BS, no rales RRR CBC, BMP 05/22/18 06:30 05/22/18 06:30 Current Medications Acetaminophen (Tylenol -) 650 mg PO Q6H PRN PRN Reason: FEVER Last Admin: 05/21/18 18:47 Dose: 650 mg Alprazolam (Xanax -) 0.25 mg PO BID PRN PRN Reason: ANXIETY Last Admin: 05/22/18 16:01 Dose: 0.25 mg Aminocaproic Acid (Amicar -) 2,000 mg PO TID [facility] Benzocaine/Menthol (Cepacol Lozenge -) 1 each MM PRN PRN PRN Reason: SORE THROAT Ferrous Sulfate (Feosol -) 325 [facility] Last Admin: 05/22/18 17:43 Dose: 325 mg Furosemide (Lasix Injection -) 20 mg IVPUSH DAILY [facility] Last Admin: 05/22/18 10:19 Dose: 20 mg Dextrose (D5w -) 1,000 mls @ 75 mls/hr IV [facility] Last Admin: 05/22/18 06:41 Dose: 75 mls/hr Phenol/Menthol (Chloraseptic -) 1 spray MM Q6HPO PRN PRN Reason: SORE THROAT Last Admin: 05/11/18 21:53 Dose: 1 spray 88 y.o. 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
--- NOTE | 2018-05-22 22:31 | PN ---
Teaching Attending Note Name of Resident: Esequiel Cheema ATTENDING PHYSICIAN STATEMENT I saw and evaluated the patient. I reviewed the resident's note and discussed the case with the resident. I agree with the resident's findings and plan as documented. ASSESSMENT AND PLAN: 88 y/o wth metastatic prostate cancer. refused Xtandi and lupcastillo puga past. Liver/ lung/bone mets poor performance status Hematuria --persistent on CBI Increase amicar to 2g q 8h f/u cardiology and urology recs
[2018-05-23] MEDS: AMINOCAPROIC ACID 500 MG TABLET PO SCH ×3 (05:43→22:03)
[2018-05-23 07:43] LABS: BASO % 0.9 % (0-2.0); HEMATOCRIT 30.5 % (35.4-49); HEMOGLOBIN 10.7 GM/dL (11.7-16.9); MCH 31.4 pg (25.7-33.7); MEAN CELL VOLUME 89.7 fl (80-96); MEAN PLT VOLUME 7.5 fl (7.5-11.1); MONO % 5.1 % (3.8-10.2); PLATELET COUNT 393 K/MM3 (134-434); RBC 3.41 M/mm3 (4.00-5.60); RDW 16.4 % (11.9-15.9); WHITE BLOOD COUNT 8.3 K/mm3 (4.0-10.0)
[2018-05-23 08:17] LABS: INR 0.98 (0.83-1.09); PROTHROMBIN TIME (PATIENT) 11.6 SEC (9.7-13.0)
[2018-05-23 08:20] LABS: ACTIVATED PTT 29.2 SECONDS (25.2-36.5)
[2018-05-23 08:49] LABS: ALBUMIN 1.9 g/dl (3.4-5.0); ALK PHOS 198 U/L (45-117); ANION GAP 6 MMOL/L (8-16); BILIRUBIN,TOTAL 0.5 mg/dL (0.2-1); BLOOD UREA NITROGEN 27 mg/dL (7-18); CHLORIDE 105 mmol/L (98-107); CO2 30 mmol/L (21-32); CREATININE 0.8 mg/dL (0.55-1.3); GLUCOSE,RANDOM 96 mg/dL (74-106); POTASSIUM 3.5 mmol/L (3.5-5.1); SGOT/AST 34 U/L (15-37); SGPT/ALT 11 U/L (13-61); SODIUM 141 mmol/L (136-145); TOT PROT 4.7 g/dl (6.4-8.2)
[2018-05-23] MEDS: FERROUS SO4 325 MG TABLET (FP) PO SCH ×2 (08:55→17:29)
[2018-05-23] MEDS: FUROSEMIDE 40 MG/4 ML INJECTABLE VIAL IVPUSH SCH (10:23)
--- NOTE | 2018-05-23 10:35 | PN ---
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 History of Present Illness: Previous notes and events reviewed awake and alert NAD denies chest pain or sob wbc nl CBI on going, urine noted to be clear patient states feeling depressed in to decline in health RN sts that patient FC was clogged during the night, FC flushed and resumed draining urine - Current Medication List Current Medications: Active Medications Acetaminophen (Tylenol -) 650 mg PO Q6H PRN PRN Reason: FEVER Last Admin: 05/21/18 18:47 Dose: 650 mg Alprazolam (Xanax -) 0.25 mg PO BID PRN PRN Reason: ANXIETY Last Admin: 05/22/18 16:01 Dose: 0.25 mg Amino Acids (Prosource No Carb Liquid Pkt) 30 ml PO BID@0800,1730 [facility] Aminocaproic Acid (Amicar -) 2,000 mg PO TID [facility] Last Admin: 05/23/18 05:43 Dose: 2,000 mg Benzocaine/Menthol (Cepacol Lozenge -) 1 each MM PRN PRN PRN Reason: SORE THROAT Ferrous Sulfate (Feosol -) 325 mg PO BIDWM [facility] Last Admin: 05/23/18 08:55 Dose: 325 mg Furosemide (Lasix Injection -) 20 mg IVPUSH DAILY [facility] Last Admin: 05/23/18 10:23 Dose: 20 mg Dextrose (D5w -) 1,000 mls @ 75 mls/hr IV ASDIR [facility] Last Admin: 05/22/18 06:41 Dose: 75 mls/hr Phenol/Menthol (Chloraseptic -) 1 spray MM Q6HPO PRN PRN Reason: SORE THROAT Last Admin: 05/11/18 21:53 Dose: 1 spray - Objective Vital Signs: Vital Signs Temperature 98.0 F 05/23/18 06:00 Pulse Rate 72 05/23/18 06:00 Respiratory Rate 20 05/23/18 06:00 Blood Pressure 100/48 L 05/23/18 06:00 O2 Sat by Pulse Oximetry (%) 97 05/22/18 21:00 Constitutional: Yes: Cachectic, Mild Distress Eyes: Yes: Conjunctiva Clear Cardiovascular: Yes: Regular Rate and Rhythm Respiratory: Yes: Diminished Gastrointestinal: Yes: Normal Bowel Sounds, Soft Genitourinary: Yes: Anaya Present (CBI) Musculoskeletal: Yes: Muscle Weakness Edema: No Neurological: Yes: Alert, Pre-Existing Deficit Psychiatric: Yes: Alert Labs: CBC, BMP 05/23/18 06:30 05/23/18 06:30 INR, PTT INR 0.98 (0.83-1.09) 05/23/18 06:30 Fibrinogen 593.0 mg/dL (238-498) H D 05/20/18 07:10 <Charis Naranjo - Last Filed: 05/23/18 10:36> - Current Medication List Current Medications: Active Medications Acetaminophen (Tylenol -) 650 mg PO Q6H PRN PRN Reason: FEVER Last Admin: 05/21/18 18:47 Dose: 650 mg Amino Acids (Prosource No Carb Liquid Pkt) 30 ml PO BID@0800,1730 [facility] Last Admin: 05/23/18 17:30 Dose: 30 ml Aminocaproic Acid (Amicar -) 1,000 mg PO QID [facility] Benzocaine/Menthol (Cepacol Lozenge -) 1 each MM PRN PRN PRN Reason: SORE THROAT Ferrous Sulfate (Feosol -) 325 mg PO BIDWM [facility] Last Admin: 05/23/18 17:29 Dose: 325 mg Dextrose/Sodium Chloride (D5-1/2ns -) 1,000 mls @ 250 mls/hr IV PRN [facility] Mirtazapine (Remeron -) 15 mg PO HS [facility] Phenol/Menthol (Chloraseptic -) 1 spray MM Q6HPO PRN PRN Reason: SORE THROAT Last Admin: 05/11/18 21:53 Dose: 1 spray - Objective Vital Signs: Vital Signs Temperature 97.7 F 05/23/18 17:33 Pulse Rate 77 05/23/18 17:33 Respiratory Rate 18 05/23/18 17:33 Blood Pressure 98/47 L 05/23/18 17:33 O2 Sat by Pulse Oximetry (%) 97 05/23/18 09:00 Labs: CBC, BMP 05/23/18 06:30 05/23/18 06:30 INR, PTT INR 0.98 (0.83-1.09) 05/23/18 06:30 Fibrinogen 593.0 mg/dL (238-498) H D 05/20/18 07:10 <Cecilia Pulido - Last Filed: 05/23/18 21:09> Problem List - Problems (1) Anemia Code(s): D64.9 - ANEMIA, UNSPECIFIED Qualifiers: Other causes of anemia: acute posthemorrhagic (2) Bacteremia Code(s): R78.81 - BACTEREMIA (3) Fever Code(s): R50.9 - FEVER, UNSPECIFIED (4) Hematuria, gross Code(s): R31.0 - GROSS HEMATURIA (5) Lung metastases Code(s): C78.00 - SECONDARY MALIGNANT NEOPLASM OF UNSPECIFIED LUNG (6) Metastatic malignant neoplasm to prostate Code(s): C79.82 - SECONDARY MALIGNANT NEOPLASM OF GENITAL ORGANS (7) Severe malnutrition Code(s): E43 - UNSPECIFIED SEVERE PROTEIN-CALORIE MALNUTRITION <Charis Naranjo - Last Filed: 05/23/18 10:36> - Problems (1) Hematuria, gross Code(s): R31.0 - GROSS HEMATURIA (2) Metastatic malignant neoplasm to prostate Code(s): C79.82 - SECONDARY MALIGNANT NEOPLASM OF GENITAL ORGANS (3) History of dysphagia Code(s): Z87.19 - PERSONAL HISTORY OF OTHER DISEASES OF THE DIGESTIVE SYSTEM (4) Weakness Code(s): R53.1 - WEAKNESS <Cecilia Pulido - Last Filed: 05/23/18 21:09> Assessment/Plan -cont IV ABT per ID -urology on board -FC with CBI, now draining clear urine -flush catheter as needed for irrigation if no urine output noted -strict I&O -FC care -H/H stable at 10.7, will cont to monitor for downward trend -Stool OB neg -amicar dose increased -LFT elev, nephrology on board, will cont to trend -cont D5W IVF, monitor Na level -O2 via NC PRN, bronchodilators -keep SpO2 >90% -dvt ppx -fall precaution -started on prosource BID -dysphagia diet <Charis Naranjo - Last Filed: 05/23/18 10:36> I HAVE EXAMINED THE PATIENT AND AGREE WITH ABOVE NOTE <Cecilia Pulido - Last Filed: 05/23/18 21:09>
[2018-05-23] MEDS ORDERED: DEXTROSE 5%-WATER - 1,000 ML IV SCH (10:51)
--- NOTE | 2018-05-23 12:28 | PN ---
Progress Note, Physician History of Present Illness: stable does not like the food - Current Medication List Current Medications: Active Medications Acetaminophen (Tylenol -) 650 mg PO Q6H PRN PRN Reason: FEVER Last Admin: 05/21/18 18:47 Dose: 650 mg Alprazolam (Xanax -) 0.25 mg PO BID PRN PRN Reason: ANXIETY Last Admin: 05/22/18 16:01 Dose: 0.25 mg Amino Acids (Prosource No Carb Liquid Pkt) 30 ml PO BID@0800,1730 [facility] Aminocaproic Acid (Amicar -) 2,000 mg PO TID [facility] Last Admin: 05/23/18 05:43 Dose: 2,000 mg Benzocaine/Menthol (Cepacol Lozenge -) 1 each MM PRN PRN PRN Reason: SORE THROAT Ferrous Sulfate (Feosol -) 325 mg PO BIDWM [facility] Last Admin: 05/23/18 08:55 Dose: 325 mg Furosemide (Lasix Injection -) 20 mg IVPUSH DAILY [facility] Last Admin: 05/23/18 10:23 Dose: 20 mg Dextrose (D5w -) 1,000 mls @ 42 mls/hr IV ASDIR [facility] Phenol/Menthol (Chloraseptic -) 1 spray MM Q6HPO PRN PRN Reason: SORE THROAT Last Admin: 05/11/18 21:53 Dose: 1 spray - Objective Vital Signs: Vital Signs Temperature 98.0 F 05/23/18 06:00 Pulse Rate 72 05/23/18 06:00 Respiratory Rate 20 05/23/18 06:00 Blood Pressure 100/48 L 05/23/18 06:00 O2 Sat by Pulse Oximetry (%) 97 05/22/18 21:00 Constitutional: Yes: Calm, Other (failure to thrive) Cardiovascular: Yes: Regular Rate and Rhythm Respiratory: Yes: Regular, CTA Bilaterally Gastrointestinal: Yes: Normal Bowel Sounds, Soft Extremities: Yes: WNL Neurological: Yes: Alert, Oriented Psychiatric: Yes: Alert, Oriented Labs: CBC, BMP 05/23/18 06:30 05/23/18 06:30 INR, PTT INR 0.98 (0.83-1.09) 05/23/18 06:30 Fibrinogen 593.0 mg/dL (238-498) H D 05/20/18 07:10 Assessment/Plan Problem List - Problems (1) Fever Code(s): R50.9 - FEVER, UNSPECIFIED (2) Hematuria, gross Code(s): R31.0 - GROSS HEMATURIA (3) Metastatic malignant neoplasm to prostate Code(s): C79.82 - SECONDARY MALIGNANT NEOPLASM OF GENITAL ORGANS (4) UTI (urinary tract infection) Code(s): N39.0 - URINARY TRACT INFECTION, SITE NOT SPECIFIED Qualifiers: Urinary tract infection type: site unspecified Hematuria presence: without hematuria Qualified Code(s): N39.0 - Urinary tract infection, site not specified (5) Urinary catheter insertion/adjustment/removal Code(s): Z46.6 - ENCOUNTER FOR FITTING AND ADJUSTMENT OF URINARY DEVICE (6) Weakness Code(s): R53.1 - WEAKNESS 7 gm negative bacteremia Assessment/Plan 88 y.o. 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 Noted to have clots in urine and started on CBI. Today found to have fever of 102.4F Fever Hematuria/urinary retention Chronic indwelling barger Metastatic Prostate CA gm negative bacteremia plan continue monitoring nutrition main issue continue cbi rest as per the team
[2018-05-23] MEDS ORDERED: PT OWN MED DRAWER 7, Y5N ONE ×2 (13:16→17:22)
--- NOTE | 2018-05-23 13:27 | PN ---
Progress Note (short form) - Note Progress Note: PULMONARY WELL KNOWN BY MY SERVICE PROSTATE CA WITH METS/BONE/LUNG/LIVER NOW UNDERGOING TBI APPEARS PALE/WEAK ANICTERIC DIMINISHED BREATH SOUNDS S1S2 BS+ NO EDEMA CHART REVIEWED ADVANCED PROSTATE CA WITH METS TO MULTIPLE SITES POOR PERFORMANCE STATUS SHOULD BE EVALUATED FOR HOSPICE CONTINUE SUPPORTIVE CARE FOR NOW PLEASE CALL GRETEL BURT MD
--- NOTE | 2018-05-23 14:38 | PN ---
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 Full code. Emaciated. Poor PO intake.Many c/o about the food. Unable to tolerate solids, even mashed foods if not finely mashed with stevie or condiments. Suspect impaired insight. f/u by Palliative care.
--- NOTE | 2018-05-23 15:26 | PN ---
Progress Note (short form) - Note Progress Note: Renal follow up for Hematuria Pt seen and examined at the bedside no acute complaints denies any sob, cp, abd pain cbi on going Vital Signs Temperature 98.3 F 05/23/18 14:00 Pulse Rate 84 05/23/18 14:00 Respiratory Rate 21 H 05/23/18 14:00 Blood Pressure 97/44 L 05/23/18 14:00 O2 Sat by Pulse Oximetry (%) 97 05/23/18 09:00 Intake & Output 05/20/18 05/21/18 05/22/18 05/23/18 23:59 23:59 23:59 23:59 Intake Total 55317 95033 10548 4400 Output Total 79345 88744 87700 18804 Balance -25895 2220 -3400 -[address] no LE edema Dec BS, no rales RRR CBC, BMP 05/23/18 06:30 05/23/18 06:30 Current Medications Acetaminophen (Tylenol -) 650 mg PO Q6H PRN PRN Reason: FEVER Last Admin: 05/21/18 18:47 Dose: 650 mg Amino Acids (Prosource No Carb Liquid Pkt) 30 ml PO BID@0800,1730 [facility] Aminocaproic Acid (Amicar -) 2,000 mg PO TID [facility] Last Admin: 05/23/18 13:27 Dose: 2,000 mg Benzocaine/Menthol (Cepacol Lozenge -) 1 each MM PRN PRN PRN Reason: SORE THROAT Ferrous Sulfate (Feosol -) 325 mg PO BIDWM [facility] Last Admin: 05/23/18 08:55 Dose: 325 mg Phenol/Menthol (Chloraseptic -) 1 spray MM Q6HPO PRN PRN Reason: SORE THROAT Last Admin: 05/11/18 21:53 Dose: 1 spray 88 y.o. 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
[2018-05-23] MEDS ORDERED: SODIUM CHLORIDE 500 ML IV STA (16:57)
[2018-05-23] MEDS ORDERED: AMINOCAPROIC ACID 500 MG TABLET PO SCH (17:00)
--- NOTE | 2018-05-23 17:02 | PN ---
Progress Note (short form) - Note Progress Note: Patient seen BP down on decreased IV hydration -- for fluid bolus. Jaclyn xavier Would taper amicar from 6mg --05/23 05/24- 1 gm q 6h 05/25-500 mg q6h 05/26- 500 mg BID 05/27- d/c
--- NOTE | 2018-05-23 17:18 | CON.PSY ---
Psychiatry Consult Chief Complaint: 88 year old Male with Prostate CA with mets to lungs.Patient seen for Psych eval for depression. Symptoms: reports: Depressed Mood, Anhedonia - Previous Psychiatric Treatment Outpatient: None Inpatient: None - Previous Substance Abuse Treatment Outpatient: None Inpatient: None - Current Medications Current Medications: Active Medications Acetaminophen (Tylenol -) 650 mg PO Q6H PRN PRN Reason: FEVER Last Admin: 05/21/18 18:47 Dose: 650 mg Amino Acids (Prosource No Carb Liquid Pkt) 30 ml PO BID@0800,1730 [facility] Aminocaproic Acid (Amicar -) 1,000 mg PO Q6H [facility] Benzocaine/Menthol (Cepacol Lozenge -) 1 each MM PRN PRN PRN Reason: SORE THROAT Ferrous Sulfate (Feosol -) 325 mg PO BIDWM [facility] Last Admin: 05/23/18 08:55 Dose: 325 mg Phenol/Menthol (Chloraseptic -) 1 spray MM Q6HPO PRN PRN Reason: SORE THROAT Last Admin: 05/11/18 21:53 Dose: 1 spray - Allergies Allergies: Allergies Allergy/AdvReac Type Severity Reaction Status Date / Time No Known Allergies Allergy Verified 02/20/18 00:21 - Current Living Status Usual Living Arrangement: Alone - Current Mental Status Evaluation Appearance: Disheveled Attitude: Cooperative - Affect Affect: Constrictive Appropriateness: Appropriate to Content - Mood Mood: Depressed - Speech/Language Expressive: Coherent - Psychomotor Activity Psychomotor Activity: Slowed - Thought Process Thought Process: Intact - Thought Content Hallucinations: Absent Delusions: Absent - Self Perception Self Perception: No Impairment - Cognition Attention: Alert Orientation: Time Memory, Immediate Recall: Intact Memory, Short Term: 2/3 Memory, Remote with Promptin/3 - Concentration Serial Sevens Intact: No Simple Calculations Intact: Yes - Insight Insight: Intact - Impulse Control Impulse Control: Good Control - Suicidal Ideation Suicidal Ideation: No - Homicidal Ideation Homicidal Ideation: No Assessment/Plan 1) will try Remeron 15mg po hs for depression, appetite and insomnia.
--- NOTE | 2018-05-23 17:26 | PN ---
Progress Note (short form) - Note Progress Note: RN called saying Pt BP 88/48 HR 82, patient is awake and alert, no acute change in mental status. Patient is afebrile with rectal temp 97.7F, denies dizziness , dyspnea, chest pain. EKG, blood cultures ordered. due to increased risk of congestion will hold off on IVF at present. Will order D5 1/2NS 250cc bolus PRN if SBP <80. Monitor BP q4h. Problem List - Problems (1) Anemia Code(s): D64.9 - ANEMIA, UNSPECIFIED Qualifiers: Other causes of anemia: acute posthemorrhagic (2) Bacteremia Code(s): R78.81 - BACTEREMIA (3) Fever Code(s): R50.9 - FEVER, UNSPECIFIED (4) Hematuria, gross Code(s): R31.0 - GROSS HEMATURIA (5) Lung metastases Code(s): C78.00 - SECONDARY MALIGNANT NEOPLASM OF UNSPECIFIED LUNG (6) Metastatic malignant neoplasm to prostate Code(s): C79.82 - SECONDARY MALIGNANT NEOPLASM OF GENITAL ORGANS (7) Severe malnutrition Code(s): E43 - UNSPECIFIED SEVERE PROTEIN-CALORIE MALNUTRITION
[2018-05-23] MEDS: AMINO ACIDS/PROTEIN HYDROLYS 30 ML LIQUID.PKT PO SCH (17:30)
[2018-05-23] MEDS ORDERED: DEXTROSE 5%-0.45% SALINE 1,000 ML IV SCH ×2 (17:30→17:45)
[2018-05-23] MEDS: MIRTAZAPINE 15 MG TABLET (FP) PO SCH (22:03)
[2018-05-24 07:36] LABS: BASO % 1.3 % (0-2.0); EOS % 2.2 % (0-4.5); HEMATOCRIT 31.4 % (35.4-49); LYMPH % 9.4 % (8-40); MCH 31.5 pg (25.7-33.7); MCHC 35.1 g/dl (32.0-35.9); MEAN PLT VOLUME 7.8 fl (7.5-11.1); MONO % 4.9 % (3.8-10.2); NEUT % 82.2 % (42.8-82.8); PLATELET COUNT 397 K/MM3 (134-434); RBC 3.49 M/mm3 (4.00-5.60); RDW 16.1 % (11.9-15.9); WHITE BLOOD COUNT 6.5 K/mm3 (4.0-10.0)
[2018-05-24 08:08] LABS: ALK PHOS 208 U/L (45-117); ANION GAP 9 MMOL/L (8-16); BILIRUBIN,TOTAL 0.5 mg/dL (0.2-1); BLOOD UREA NITROGEN 26 mg/dL (7-18); CALCIUM 8.2 mg/dL (8.5-10.1); CHLORIDE 105 mmol/L (98-107); CO2 28 mmol/L (21-32); CREATININE 0.7 mg/dL (0.55-1.3); GLUCOSE,RANDOM 83 mg/dL (74-106); POTASSIUM 3.4 mmol/L (3.5-5.1); SGOT/AST 34 U/L (15-37); SGPT/ALT 11 U/L (13-61); SODIUM 143 mmol/L (136-145)
[2018-05-24] MEDS ORDERED: PT OWN MED DRAWER 7, Y5N ONE ×3 (09:27→20:30)
[2018-05-24] MEDS: FERROUS SO4 325 MG TABLET (FP) PO SCH ×2 (09:33→17:24)
[2018-05-24] MEDS: AMINO ACIDS/PROTEIN HYDROLYS 30 ML LIQUID.PKT PO SCH ×2 (09:33→17:24)
[2018-05-24] MEDS: AMINOCAPROIC ACID 500 MG TABLET PO SCH ×4 (09:34→21:47)
[2018-05-24] MEDS: LYTES/YERBA SANTA 240 ML BOTTLE MM SCH (09:34)
[2018-05-24] MEDS ORDERED: POTASSIUM CHLORIDE ORAL LIQUID 20 MEQ/15 ML PO ONE (12:41)
--- NOTE | 2018-05-24 12:43 | PN ---
Progress Note, Physician Chief Complaint: Hematuria Metastatic disease History of Present Illness: Started on Amicar CBI on hold barger draining clear urine On Amicar - Current Medication List Current Medications: Active Medications Acetaminophen (Tylenol -) 650 mg PO Q6H PRN PRN Reason: FEVER Last Admin: 05/21/18 18:47 Dose: 650 mg Amino Acids (Prosource No Carb Liquid Pkt) 30 ml PO BID@0800,1730 [facility] Last Admin: 05/24/18 09:33 Dose: 30 ml Aminocaproic Acid (Amicar -) 1,000 mg PO QID [facility] Last Admin: 05/24/18 09:34 Dose: 1,000 mg Benzocaine/Menthol (Cepacol Lozenge -) 1 each MM PRN PRN PRN Reason: SORE THROAT Ferrous Sulfate (Feosol -) 325 mg PO BIDWM [facility] Last Admin: 05/24/18 09:33 Dose: 325 mg Dextrose/Sodium Chloride (D5-1/2ns -) 1,000 mls @ 250 mls/hr IV PRN [facility] Mirtazapine (Remeron -) 15 mg PO HS [facility] Last Admin: 05/23/18 22:03 Dose: 15 mg Phenol/Menthol (Chloraseptic -) 1 spray MM Q6HPO PRN PRN Reason: SORE THROAT Last Admin: 05/11/18 21:53 Dose: 1 spray Saliva Substitute (Mouthkote Solution -) 1 applic MM DAILY [facility] Last Admin: 05/24/18 09:34 Dose: 1 applic - Objective Vital Signs: Vital Signs Temperature 98.5 F 05/24/18 10:00 Pulse Rate 65 05/24/18 10:00 Respiratory Rate 16 05/24/18 10:00 Blood Pressure 98/44 L 05/24/18 10:00 O2 Sat by Pulse Oximetry (%) 97 05/23/18 22:00 Constitutional: Yes: No Distress, Calm, Cachectic Cardiovascular: Yes: Regular Rate and Rhythm Respiratory: Yes: Regular, On Nasal O2, Rales (BLL) Gastrointestinal: Yes: Normal Bowel Sounds, Soft Genitourinary: Yes: Barger Present Musculoskeletal: Yes: Muscle Weakness Edema: No Peripheral Pulses WNL: Yes Neurological: Yes: Alert, Oriented Psychiatric: Yes: Alert, Oriented Labs: CBC, BMP 05/24/18 07:00 05/24/18 07:00 INR, PTT INR 0.98 (0.83-1.09) 05/23/18 06:30 Fibrinogen 593.0 mg/dL (238-498) H D 05/20/18 07:10 Problem List - Problems (1) Fever Assessment/Plan: -afebrile now -finished IV abx -ID on board -Pulmonary consulted -Tylenol for fever >100.0F Code(s): R50.9 - FEVER, UNSPECIFIED (2) Hematuria, gross Assessment/Plan: -Seen by Urology -CBI on hold -D/C CBI in AM if barger draining clear Code(s): R31.0 - GROSS HEMATURIA (3) Metastatic malignant neoplasm to prostate Code(s): C79.82 - SECONDARY MALIGNANT NEOPLASM OF GENITAL ORGANS (4) Anemia Assessment/Plan: -Started on Amicar -iron profile-% low -start feosol 352 mg po bid -stool OB -GI consult -monitor trend -Seen by hematology Code(s): D64.9 - ANEMIA, UNSPECIFIED Qualifiers: Other causes of anemia: acute posthemorrhagic (5) Hypokalemia Assessment/Plan: -KCL 40 meq once, then 20 meq po daily -monitor trend Code(s): E87.6 - HYPOKALEMIA Assessment/Plan see problem list Physical therapy
[2018-05-24] MEDS ORDERED: POTASSIUM CHLORIDE ORAL LIQUID 20 MEQ/15 ML PO SCH (12:45)
[2018-05-24] MEDS ORDERED: POTASSIUM CHLORIDE TABS 10 MEQ TABLET.ER (FP) PO ONE (13:09)
--- NOTE | 2018-05-24 13:52 | PN ---
Progress Note, Physician History of Present Illness: Pt remains alert, afebrile, without distress. - Current Medication List Current Medications: Active Medications Acetaminophen (Tylenol -) 650 mg PO Q6H PRN PRN Reason: FEVER Last Admin: 05/21/18 18:47 Dose: 650 mg Amino Acids (Prosource No Carb Liquid Pkt) 30 ml PO BID@0800,1730 [facility] Last Admin: 05/24/18 09:33 Dose: 30 ml Aminocaproic Acid (Amicar -) 1,000 mg PO QID [facility] Last Admin: 05/24/18 13:19 Dose: 1,000 mg Benzocaine/Menthol (Cepacol Lozenge -) 1 each MM PRN PRN PRN Reason: SORE THROAT Ferrous Sulfate (Feosol -) 325 mg PO BIDWM [facility] Last Admin: 05/24/18 09:33 Dose: 325 mg Dextrose/Sodium Chloride (D5-1/2ns -) 1,000 mls @ 250 mls/hr IV PRN [facility] Mirtazapine (Remeron -) 15 mg PO HS [facility] Last Admin: 05/23/18 22:03 Dose: 15 mg Phenol/Menthol (Chloraseptic -) 1 spray MM Q6HPO PRN PRN Reason: SORE THROAT Last Admin: 05/11/18 21:53 Dose: 1 spray Potassium Chloride (K-Dur -) 20 meq PO DAILY [facility] Saliva Substitute (Mouthkote Solution -) 1 applic MM DAILY [facility] Last Admin: 05/24/18 09:34 Dose: 1 applic - Objective Vital Signs: Vital Signs Temperature 98.5 F 05/24/18 10:00 Pulse Rate 65 05/24/18 10:00 Respiratory Rate 16 05/24/18 10:00 Blood Pressure 98/44 L 05/24/18 10:00 O2 Sat by Pulse Oximetry (%) 97 05/23/18 22:00 Constitutional: Yes: No Distress, Calm Cardiovascular: Yes: Regular Rate and Rhythm Respiratory: Yes: Diminished Gastrointestinal: Yes: Normal Bowel Sounds, Soft Neurological: Yes: Alert Labs: CBC, BMP 05/24/18 07:00 05/24/18 07:00 INR, PTT INR 0.98 (0.83-1.09) 05/23/18 06:30 Fibrinogen 593.0 mg/dL (238-498) H D 05/20/18 07:10 Problem List - Problems (1) Fever Code(s): R50.9 - FEVER, UNSPECIFIED (2) Hematuria, gross Code(s): R31.0 - GROSS HEMATURIA (3) Metastatic malignant neoplasm to prostate Code(s): C79.82 - SECONDARY MALIGNANT NEOPLASM OF GENITAL ORGANS (4) UTI (urinary tract infection) Code(s): N39.0 - URINARY TRACT INFECTION, SITE NOT SPECIFIED Qualifiers: Urinary tract infection type: site unspecified Hematuria presence: without hematuria Qualified Code(s): N39.0 - Urinary tract infection, site not specified (5) Urinary catheter insertion/adjustment/removal Code(s): Z46.6 - ENCOUNTER FOR FITTING AND ADJUSTMENT OF URINARY DEVICE (6) Weakness Code(s): R53.1 - WEAKNESS Assessment/Plan Gram negative Bacteremia - resolved s/p Sepsis Hematuria/urinary retention Chronic indwelling barger Metastatic Prostate CA afebrile, without leukocytosis s/p course of antibiotics continue monitor
--- NOTE | 2018-05-24 14:25 | PN ---
Progress Note (short form) - Note Progress Note: Patient seen in follow up. No new complaints. No significant events overnight. Inpatient Meds reviewed. Current Medications Generic Name Dose Route Start Last Admin Trade Name Nabila PRN Reason Stop Dose Admin Acetaminophen 650 mg 05/10/18 12:22 05/21/18 18:47 Tylenol - PO 650 mg Q6H PRN Administration FEVER Amino Acids 30 ml 05/23/18 17:30 05/24/18 09:33 Prosource No Carb Liquid Pkt PO 30 ml BID@0800,1730 [facility] Administration Aminocaproic Acid 1,000 mg 05/23/18 22:00 05/24/18 13:19 Amicar - PO 1,000 mg QID [facility] Administration Benzocaine/Menthol 1 each 05/11/18 12:52 Cepacol Lozenge - MM PRN PRN SORE THROAT Ferrous Sulfate 325 mg 05/20/18 17:30 05/24/18 09:33 Feosol - PO 325 mg BIDWM [facility] Administration Dextrose/Sodium Chloride 1,000 mls @ 250 mls/hr 05/23/18 17:45 D5-1/2ns - IV PRN [facility] Mirtazapine 15 mg 05/23/18 22:00 05/23/18 22:03 Remeron - PO 15 mg HS [facility] Administration Phenol/Menthol 1 spray 05/11/18 12:52 05/11/18 21:53 Chloraseptic - MM 1 spray Q6HPO PRN Administration SORE THROAT Potassium Chloride 20 meq 05/25/18 10:00 K-Dur - PO DAILY [facility] Saliva Substitute 1 applic 05/24/18 10:00 05/24/18 09:34 Mouthkote Solution - MM 1 applic DAILY [facility] Administration On Examination: Last Vital Signs Temp Pulse Resp BP Pulse Ox 98.5 F 65 16 98/44 L 97 05/24/18 10:00 05/24/18 10:00 05/24/18 10:00 05/24/18 10:00 05/23/18 22:00 General: In no acute distress, lying comfortably in bed. Extremities: No pallor or icterus. No palpable lymphadenopathy. CVS: S1, S2, regular, no gallop or murmur. Chest: good air entry bilaterally, clear Abdomen: Non-distended, non-tender, no palpable organomegaly. Neuro: Alert, confused, somewhat agitated, refusing to answer questions appropriately. Labs: CBC, BMP 05/24/18 07:00 05/24/18 07:00 Assessment. 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 Currently improved with empiric Abics, and CBI. Urine in catheter currently clear. Can decrease dose of Amicar - taper to 500 mgs q6 tomorrow. Unclear why patient has refused further systemic treatment for his MRPC - informed me that he cannot use Zytiga because of his "angina" - unclear to me what the concern is - suggest issue is revisited. Likely element of dementia impairing decision making capability.
--- NOTE | 2018-05-24 15:55 | PN ---
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, chronic indwelling barger catheter, renal calculi s/p lithotripsy, HLD admitted via ER due to persistent hematuria Current Medications Acetaminophen (Tylenol -) 650 mg PO Q6H PRN PRN Reason: FEVER Last Admin: 05/21/18 18:47 Dose: 650 mg Amino Acids (Prosource No Carb Liquid Pkt) 30 ml PO BID@0800,1730 [facility] Last Admin: 05/24/18 09:33 Dose: 30 ml Aminocaproic Acid (Amicar -) 1,000 mg PO QID [facility] Last Admin: 05/24/18 13:19 Dose: 1,000 mg Benzocaine/Menthol (Cepacol Lozenge -) 1 each MM PRN PRN PRN Reason: SORE THROAT Ferrous Sulfate (Feosol -) 325 mg PO BIDWM [facility] Last Admin: 05/24/18 09:33 Dose: 325 mg Dextrose/Sodium Chloride (D5-1/2ns -) 1,000 mls @ 250 mls/hr IV PRN [facility] Mirtazapine (Remeron -) 15 mg PO HS [facility] Last Admin: 05/23/18 22:03 Dose: 15 mg Phenol/Menthol (Chloraseptic -) 1 spray MM Q6HPO PRN PRN Reason: SORE THROAT Last Admin: 05/11/18 21:53 Dose: 1 spray Potassium Chloride (K-Dur -) 20 meq PO DAILY [facility] Saliva Substitute (Mouthkote Solution -) 1 applic MM DAILY [facility] Last Admin: 05/24/18 09:34 Dose: 1 applic Last Vital Signs Temp Pulse Resp BP Pulse Ox 99.4 F 90 18 98/44 L 97 05/24/18 15:06 05/24/18 15:06 05/24/18 15:06 05/24/18 10:00 05/23/18 22:00 Lungs clear Heart reg ABd soft nontender Ext no edema CBC, BMP 05/24/18 07:00 05/24/18 07:00 IMP -Azotemia/SUKHI -Hematuria -Prostate Cancer -Anemia -Lactic acidosis now resolved
[2018-05-24] MEDS: MIRTAZAPINE 15 MG TABLET (FP) PO SCH (21:46)
[2018-05-25 08:19] LABS: BASO % 1.2 % (0-2.0); HEMATOCRIT 31.8 % (35.4-49); HEMOGLOBIN 10.9 GM/dL (11.7-16.9); LYMPH % 10.4 % (8-40); MCHC 34.2 g/dl (32.0-35.9); MEAN CELL VOLUME 90.7 fl (80-96); MEAN PLT VOLUME 7.4 fl (7.5-11.1); MONO % 7.8 % (3.8-10.2); NEUT % 78.6 % (42.8-82.8); PLATELET COUNT 346 K/MM3 (134-434); WHITE BLOOD COUNT 5.9 K/mm3 (4.0-10.0)
[2018-05-25 08:43] LABS: ALK PHOS 225 U/L (45-117); ANION GAP 7 MMOL/L (8-16); BILIRUBIN,TOTAL 0.6 mg/dL (0.2-1); BLOOD UREA NITROGEN 28 mg/dL (7-18); CALCIUM 8.1 mg/dL (8.5-10.1); CHLORIDE 110 mmol/L (98-107); CO2 30 mmol/L (21-32); CREATININE 0.8 mg/dL (0.55-1.3); GLUCOSE,RANDOM 88 mg/dL (74-106); POTASSIUM 3.9 mmol/L (3.5-5.1); SGOT/AST 36 U/L (15-37); SGPT/ALT 11 U/L (13-61); SODIUM 147 mmol/L (136-145)
[2018-05-25] MEDS ORDERED: PT OWN MED DRAWER 7, Y5N ONE ×3 (09:49→21:42)
[2018-05-25] MEDS ORDERED: POTASSIUM CHLORIDE ORAL LIQUID 20 MEQ/15 ML PO SCH (10:00)
[2018-05-25] MEDS: AMINOCAPROIC ACID 500 MG TABLET PO SCH ×5 (10:00→21:48)
[2018-05-25] MEDS: LYTES/YERBA SANTA 240 ML BOTTLE MM SCH ×2 (10:00→10:41)
[2018-05-25] MEDS: FERROUS SO4 325 MG TABLET (FP) PO SCH ×2 (10:00→10:41)
[2018-05-25] MEDS ORDERED: POTASSIUM CHLORIDE TABS 10 MEQ TABLET.ER (FP) PO SCH (10:00)
[2018-05-25] MEDS: AMINO ACIDS/PROTEIN HYDROLYS 30 ML LIQUID.PKT PO SCH ×3 (10:00→18:06)
[2018-05-25] MEDS: POTASSIUM CHLORIDE TABS 20 MEQ TABLET.ER (FP) PO SCH (11:35)
--- NOTE | 2018-05-25 11:57 | PN ---
Progress Note, Physician Chief Complaint: Hematuria Metastatic disease History of Present Illness: Started on Amicar CBI on hold barger draining clear urine On Amicar - Current Medication List Current Medications: Active Medications Acetaminophen (Tylenol -) 650 mg PO Q6H PRN PRN Reason: FEVER Last Admin: 05/21/18 18:47 Dose: 650 mg Amino Acids (Prosource No Carb Liquid Pkt) 30 ml PO BID@0800,1730 [facility] Last Admin: 05/25/18 10:41 Dose: 30 ml Aminocaproic Acid (Amicar -) 1,000 mg PO QID [facility] Last Admin: 05/25/18 10:41 Dose: 1,000 mg Benzocaine/Menthol (Cepacol Lozenge -) 1 each MM PRN PRN PRN Reason: SORE THROAT Ferrous Sulfate (Feosol -) 325 mg PO BIDWM [facility] Last Admin: 05/25/18 10:41 Dose: 325 mg Dextrose/Sodium Chloride (D5-1/2ns -) 1,000 mls @ 250 mls/hr IV PRN [facility] Mirtazapine (Remeron -) 15 mg PO HS [facility] Last Admin: 05/24/18 21:46 Dose: 15 mg Phenol/Menthol (Chloraseptic -) 1 spray MM Q6HPO PRN PRN Reason: SORE THROAT Last Admin: 05/11/18 21:53 Dose: 1 spray Potassium Chloride (K-Dur -) 20 meq PO DAILY [facility] Last Admin: 05/25/18 11:35 Dose: 20 meq Saliva Substitute (Mouthkote Solution -) 1 applic MM DAILY [facility] Last Admin: 05/25/18 10:41 Dose: 1 applic - Objective Vital Signs: Vital Signs Temperature 98.3 F 05/25/18 09:00 Pulse Rate 68 05/25/18 09:00 Respiratory Rate 18 05/25/18 09:00 Blood Pressure 96/44 L 05/25/18 09:00 O2 Sat by Pulse Oximetry (%) 95 05/24/18 09:00 Constitutional: Yes: No Distress, Calm, Cachectic Cardiovascular: Yes: Regular Rate and Rhythm Respiratory: Yes: Regular Gastrointestinal: Yes: Normal Bowel Sounds, Soft Genitourinary: Yes: Barger Present Musculoskeletal: Yes: Muscle Weakness Edema: No Peripheral Pulses WNL: Yes Neurological: Yes: Alert, Oriented Psychiatric: Yes: Alert, Oriented Labs: CBC, BMP 05/25/18 07:00 05/25/18 07:00 INR, PTT INR 0.98 (0.83-1.09) 05/23/18 06:30 Fibrinogen 593.0 mg/dL (238-498) H D 05/20/18 07:10 Problem List - Problems (1) Fever Assessment/Plan: -afebrile now -finished IV abx -ID on board -Pulmonary consulted -Tylenol for fever >100.0F Code(s): R50.9 - FEVER, UNSPECIFIED (2) Hematuria, gross Assessment/Plan: -Seen by Urology -CBI on hold -D/C CBI in AM if barger draining clear Code(s): R31.0 - GROSS HEMATURIA (3) Metastatic malignant neoplasm to prostate Code(s): C79.82 - SECONDARY MALIGNANT NEOPLASM OF GENITAL ORGANS (4) Anemia Assessment/Plan: -Started on Amicar -iron profile-% low -start feosol 352 mg po bid -stool OB -GI consult -monitor trend -Seen by hematology Code(s): D64.9 - ANEMIA, UNSPECIFIED Qualifiers: Other causes of anemia: acute posthemorrhagic (5) Hypokalemia Assessment/Plan: -resolved -KCL 20 meq po daily -monitor trend Code(s): E87.6 - HYPOKALEMIA Assessment/Plan see problem list Physical therapy
[2018-05-25] MEDS ORDERED: POTASSIUM CHLORIDE TABS 10 MEQ TABLET.ER (FP) PO ONE (12:56)
--- NOTE | 2018-05-25 13:26 | PN ---
Progress Note, Physician History of Present Illness: Pt clinically the same. Tmax 99.6F off antibiotics. No distress noted. - Current Medication List Current Medications: Active Medications Acetaminophen (Tylenol -) 650 mg PO Q6H PRN PRN Reason: FEVER Last Admin: 05/21/18 18:47 Dose: 650 mg Amino Acids (Prosource No Carb Liquid Pkt) 30 ml PO BID@0800,1730 [facility] Last Admin: 05/25/18 10:41 Dose: 30 ml Aminocaproic Acid (Amicar -) 1,000 mg PO QID [facility] Last Admin: 05/25/18 10:41 Dose: 1,000 mg Benzocaine/Menthol (Cepacol Lozenge -) 1 each MM PRN PRN PRN Reason: SORE THROAT Ferrous Sulfate (Feosol -) 325 mg PO BIDWM [facility] Last Admin: 05/25/18 10:41 Dose: 325 mg Dextrose/Sodium Chloride (D5-1/2ns -) 1,000 mls @ 250 mls/hr IV PRN [facility] Mirtazapine (Remeron -) 15 mg PO HS [facility] Last Admin: 05/24/18 21:46 Dose: 15 mg Phenol/Menthol (Chloraseptic -) 1 spray MM Q6HPO PRN PRN Reason: SORE THROAT Last Admin: 05/11/18 21:53 Dose: 1 spray Potassium Chloride (K-Dur -) 20 meq PO DAILY [facility] Last Admin: 05/25/18 11:35 Dose: 20 meq Saliva Substitute (Mouthkote Solution -) 1 applic MM DAILY [facility] Last Admin: 05/25/18 10:41 Dose: 1 applic - Objective Vital Signs: Vital Signs Temperature 98.3 F 05/25/18 09:00 Pulse Rate 68 05/25/18 09:00 Respiratory Rate 18 05/25/18 09:00 Blood Pressure 96/44 L 05/25/18 09:00 O2 Sat by Pulse Oximetry (%) 95 05/24/18 09:00 Constitutional: Yes: No Distress Cardiovascular: Yes: Regular Rate and Rhythm Respiratory: Yes: Other (b/l air entry) Gastrointestinal: Yes: Normal Bowel Sounds, Soft Neurological: Yes: Alert Labs: CBC, BMP 05/25/18 07:00 05/25/18 07:00 INR, PTT INR 0.98 (0.83-1.09) 05/23/18 06:30 Fibrinogen 593.0 mg/dL (238-498) H D 05/20/18 07:10 Problem List - Problems (1) Fever Code(s): R50.9 - FEVER, UNSPECIFIED (2) Hematuria, gross Code(s): R31.0 - GROSS HEMATURIA (3) Metastatic malignant neoplasm to prostate Code(s): C79.82 - SECONDARY MALIGNANT NEOPLASM OF GENITAL ORGANS (4) UTI (urinary tract infection) Code(s): N39.0 - URINARY TRACT INFECTION, SITE NOT SPECIFIED Qualifiers: Urinary tract infection type: site unspecified Hematuria presence: without hematuria Qualified Code(s): N39.0 - Urinary tract infection, site not specified (5) Urinary catheter insertion/adjustment/removal Code(s): Z46.6 - ENCOUNTER FOR FITTING AND ADJUSTMENT OF URINARY DEVICE (6) Weakness Code(s): R53.1 - WEAKNESS Assessment/Plan Gram negative Bacteremia - resolved s/p Sepsis Hematuria/urinary retention Chronic indwelling barger Metastatic Prostate CA Pt with Tmax 99.6F, currently afebrile s/p course of antibiotics continue monitor temperatures off antibiotics at this time Heme/Onc following
--- NOTE | 2018-05-25 14:10 | PN ---
Progress Note (short form) - Note Progress Note: Patient seen in follow up. No new complaints. No significant events overnight. Inpatient Meds reviewed. Current Medications Generic Name Dose Route Start Last Admin Trade Name Dakotaq PRN Reason Stop Dose Admin Acetaminophen 650 mg 05/10/18 12:22 05/21/18 18:47 Tylenol - PO 650 mg Q6H PRN Administration FEVER Amino Acids 30 ml 05/23/18 17:30 05/25/18 10:41 Prosource No Carb Liquid Pkt PO 30 ml BID@0800,1730 [facility] Administration Aminocaproic Acid 1,000 mg 05/23/18 22:00 05/25/18 10:41 Amicar - PO 1,000 mg QID [facility] Administration Benzocaine/Menthol 1 each 05/11/18 12:52 Cepacol Lozenge - MM PRN PRN SORE THROAT Ferrous Sulfate 325 mg 05/20/18 17:30 05/25/18 10:41 Feosol - PO 325 mg BIDWM [facility] Administration Dextrose/Sodium Chloride 1,000 mls @ 250 mls/hr 05/23/18 17:45 D5-1/2ns - IV PRN [facility] Mirtazapine 15 mg 05/23/18 22:00 05/24/18 21:46 Remeron - PO 15 mg HS [facility] Administration Phenol/Menthol 1 spray 05/11/18 12:52 05/11/18 21:53 Chloraseptic - MM 1 spray Q6HPO PRN Administration SORE THROAT Potassium Chloride 20 meq 05/25/18 10:49 05/25/18 11:35 K-Dur - PO 20 meq DAILY [facility] Administration Saliva Substitute 1 applic 05/24/18 10:00 05/25/18 10:41 Mouthkote Solution - MM 1 applic DAILY [facility] Administration On Examination: Last Vital Signs Temp Pulse Resp BP Pulse Ox 98.3 F 68 18 96/44 L 95 05/25/18 09:00 05/25/18 09:00 05/25/18 09:00 05/25/18 09:00 05/24/18 09:00 General: In no acute distress, lying comfortably in bed. Extremities: No pallor or icterus. No palpable lymphadenopathy. CVS: S1, S2, regular, no gallop or murmur. Chest: good air entry bilaterally, clear Abdomen: Non-distended, non-tender, no palpable organomegaly. Psych: Alert, anxious, tearful. Labs: CBC, BMP 05/25/18 07:00 05/25/18 07:00 Assessment. 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 Currently improved with empiric Abics, and CBI. Urine in catheter currently clear. Can decrease dose of Amicar - taper to 500 mgs. Unclear why patient has refused further systemic treatment for his MRPC - informed me that he cannot use Zytiga because of his "angina" - unclear to me what the concern is - suggest issue is revisited. Likely element of dementia impairing decision making capability.
--- NOTE | 2018-05-25 15:56 | PN ---
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, chronic indwelling barger catheter, renal calculi s/p lithotripsy, HLD admitted via ER due to persistent hematuria Current Medications Acetaminophen (Tylenol -) 650 mg PO Q6H PRN PRN Reason: FEVER Last Admin: 05/21/18 18:47 Dose: 650 mg Amino Acids (Prosource No Carb Liquid Pkt) 30 ml PO BID@0800,1730 [facility] Last Admin: 05/25/18 10:41 Dose: 30 ml Aminocaproic Acid (Amicar -) 500 mg PO QID [facility] Benzocaine/Menthol (Cepacol Lozenge -) 1 each MM PRN PRN PRN Reason: SORE THROAT Dextrose/Sodium Chloride (D5-1/2ns -) 1,000 mls @ 250 mls/hr IV PRN [facility] Mirtazapine (Remeron -) 15 mg PO HS [facility] Last Admin: 05/24/18 21:46 Dose: 15 mg Phenol/Menthol (Chloraseptic -) 1 spray MM Q6HPO PRN PRN Reason: SORE THROAT Last Admin: 05/11/18 21:53 Dose: 1 spray Potassium Chloride (K-Dur -) 20 meq PO DAILY [facility] Last Admin: 05/25/18 11:35 Dose: 20 meq Saliva Substitute (Mouthkote Solution -) 1 applic MM DAILY [facility] Last Admin: 05/25/18 10:41 Dose: 1 applic Last Vital Signs Temp Pulse Resp BP Pulse Ox 98.3 F 68 18 96/44 L 95 05/25/18 09:00 05/25/18 09:00 05/25/18 09:00 05/25/18 09:00 05/24/18 09:00 Lungs clear Heart reg abd soft nontender ext no edema CBC, BMP 05/25/18 07:00 05/25/18 07:00 CBC, BMP 05/24/18 07:00 05/24/18 07:00 IMP -s/p Azotemia/SUKHI renal function better, stable -Hematuria -Prostate Cancer -Anemia -Lactic acidosis now resolved
--- NOTE | 2018-05-25 19:31 | EKG ---
Test Reason : Blood Pressure : / mmHG Vent. Rate : 073 BPM Atrial Rate : 073 BPM P-R Int : 168 ms QRS Dur : 130 ms QT Int : 434 ms P-R-T Axes : 020 -42 005 degrees QTc Int : 478 ms NORMAL SINUS RHYTHM LEFT AXIS DEVIATION RIGHT BUNDLE BRANCH BLOCK ABNORMAL ECG WHEN COMPARED WITH ECG OF 09-MAY-2018 23:11, PREMATURE ATRIAL COMPLEXES ARE NO LONGER PRESENT T WAVE VARIATION Confirmed by MARGO DELGADO, RITIKA ([id number]) on 05/25/2018 7:31:06 PM Referred By: Confirmed By:RITIKA ARAGON MD
[2018-05-25] MEDS: MIRTAZAPINE 15 MG TABLET (FP) PO SCH (21:46)
[2018-05-26 07:48] LABS: BASO % 2.1 % (0-2.0); HEMATOCRIT 32.4 % (35.4-49); HEMOGLOBIN 11.2 GM/dL (11.7-16.9); LYMPH % 9.9 % (8-40); MCH 31.6 pg (25.7-33.7); MCHC 34.5 g/dl (32.0-35.9); MEAN CELL VOLUME 91.5 fl (80-96); MEAN PLT VOLUME 7.7 fl (7.5-11.1); MONO % 8.3 % (3.8-10.2); NEUT % 77.7 % (42.8-82.8); PLATELET COUNT 322 K/MM3 (134-434); RBC 3.54 M/mm3 (4.00-5.60); RDW 16.4 % (11.9-15.9); WHITE BLOOD COUNT 5.7 K/mm3 (4.0-10.0)
[2018-05-26] MEDS: AMINO ACIDS/PROTEIN HYDROLYS 30 ML LIQUID.PKT PO SCH ×2 (08:27→17:37)
[2018-05-26 08:34] LABS: ALK PHOS 226 U/L (45-117); ANION GAP 7 MMOL/L (8-16); BILIRUBIN,TOTAL 0.6 mg/dL (0.2-1); BLOOD UREA NITROGEN 28 mg/dL (7-18); CALCIUM 7.9 mg/dL (8.5-10.1); CHLORIDE 112 mmol/L (98-107); CO2 30 mmol/L (21-32); CREATININE 0.7 mg/dL (0.55-1.3); GLUCOSE,RANDOM 100 mg/dL (74-106); POTASSIUM 4.1 mmol/L (3.5-5.1); SGOT/AST 30 U/L (15-37); SGPT/ALT 9 U/L (13-61); SODIUM 148 mmol/L (136-145); TOT PROT 5.2 g/dl (6.4-8.2)
--- NOTE | 2018-05-26 09:38 | PN ---
Progress Note (short form) - Note Progress Note: Overall less congested cough. No hemoptysis. Intake & Output 05/23/18 05/24/18 05/25/18 05/26/18 23:59 23:59 23:59 23:59 Intake Total 37906 4550 500 Output Total 26260 30824 950 400 Balance -250 -5450 -450 -400 Last Vital Signs Temp Pulse Resp BP Pulse Ox 98.1 F 94 H 20 138/52 L 95 05/26/18 06:00 05/26/18 06:00 05/26/18 06:00 05/26/18 06:00 05/24/18 09:00 Active Medications Acetaminophen (Tylenol -) 650 mg PO Q6H PRN PRN Reason: FEVER Last Admin: 05/21/18 18:47 Dose: 650 mg Amino Acids (Prosource No Carb Liquid Pkt) 30 ml PO BID@0800,1730 [facility] Last Admin: 05/26/18 08:27 Dose: 30 ml Aminocaproic Acid (Amicar -) 500 mg PO QID [facility] Last Admin: 05/25/18 21:48 Dose: 500 mg Benzocaine/Menthol (Cepacol Lozenge -) 1 each MM PRN PRN PRN Reason: SORE THROAT Dextrose/Sodium Chloride (D5-1/2ns -) 1,000 mls @ 250 mls/hr IV PRN [facility] Mirtazapine (Remeron -) 15 mg PO HS [facility] Last Admin: 05/25/18 21:46 Dose: 15 mg Phenol/Menthol (Chloraseptic -) 1 spray MM Q6HPO PRN PRN Reason: SORE THROAT Last Admin: 05/11/18 21:53 Dose: 1 spray Potassium Chloride (K-Dur -) 20 meq PO DAILY [facility] Last Admin: 05/25/18 11:35 Dose: 20 meq Saliva Substitute (Mouthkote Solution -) 1 applic MM DAILY [facility] Last Admin: 05/25/18 10:41 Dose: 1 applic Constitutional: Yes: No Distress, Cachectic, Thin Eyes: Yes: Conjunctiva Clear, EOM Intact HENT: Yes: Atraumatic, Normocephalic Neck: Yes: Supple, Trachea Midline Cardiovascular: Yes: Regular Rate and Rhythm Respiratory: Yes: Cough, Diminished, On Nasal O2, Rhonchi, SOB, SOB on Exertion , Tachypnea. No: Accessory Muscle Use, Rales, Stridor, Wheezes ...Inspection: Yes: WNL ...Clubbing: No Gastrointestinal: Yes: Normal Bowel Sounds, Soft Renal/: Yes: Anaya Present Musculoskeletal: Yes: Back Pain, Joint Stiffness Extremities: Yes: WNL Edema: No Peripheral Pulses WNL: Yes Integumentary: Yes: WNL Neurological: Yes: Alert, Oriented, Confusion Psychiatric: Yes: Alert, Oriented Labs: Laboratory Results - last 24 hr 05/26/18 05/26/18 07:00 07:00 WBC 5.7 RBC 3.54 L Hgb 11.2 L Hct 32.4 L MCV 91.5 MCH 31.6 MCHC 34.5 RDW 16.4 H Plt Count 322 MPV 7.7 Absolute Neuts (auto) 4.4 Neutrophils % 77.7 Lymphocytes % 9.9 Monocytes % 8.3 Eosinophils % 2.0 Basophils % 2.1 H Nucleated RBC % 0 Sodium 148 H Potassium 4.1 Chloride 112 H Carbon Dioxide 30 Anion Gap 7 L BUN 28 H Creatinine 0.7 Creat Clearance w eGFR > 60 Random Glucose 100 Calcium 7.9 L Total Bilirubin 0.6 AST 30 ALT 9 L Alkaline Phosphatase 226 H Total Protein 5.2 L Albumin 2.0 L Problem List - Problems (1) Lung metastases Code(s): C78.00 - SECONDARY MALIGNANT NEOPLASM OF UNSPECIFIED LUNG (2) Fever Code(s): R50.9 - FEVER, UNSPECIFIED (3) Hematuria, gross Code(s): R31.0 - GROSS HEMATURIA (4) Metastatic malignant neoplasm to prostate Code(s): C79.82 - SECONDARY MALIGNANT NEOPLASM OF GENITAL ORGANS (5) Bronchitis Code(s): J40 - BRONCHITIS, NOT SPECIFIED ACUTE OR CHRONIC (6) Shortness of breath Code(s): R06.02 - SHORTNESS OF BREATH (7) Weakness Code(s): R53.1 - WEAKNESS (8) Suspected RLL Post obstructive PNA Assessment/Plan Off ABX per ID O2 as needed BD TX PRN Incentive Spirometry No smoking No Pulmonary contraindication for D/C planning Dr Duncan Problem List - Problems (1) Lung metastases Code(s): C78.00 - SECONDARY MALIGNANT NEOPLASM OF UNSPECIFIED LUNG (2) Fever Code(s): R50.9 - FEVER, UNSPECIFIED (3) Hematuria, gross Code(s): R31.0 - GROSS HEMATURIA (4) Metastatic malignant neoplasm to prostate Code(s): C79.82 - SECONDARY MALIGNANT NEOPLASM OF GENITAL ORGANS (5) Bronchitis Code(s): J40 - BRONCHITIS, NOT SPECIFIED ACUTE OR CHRONIC (6) Shortness of breath Code(s): R06.02 - SHORTNESS OF BREATH (7) Weakness Code(s): R53.1 - WEAKNESS
[2018-05-26] MEDS: LYTES/YERBA SANTA 240 ML BOTTLE MM SCH (10:19)
[2018-05-26] MEDS: POTASSIUM CHLORIDE TABS 20 MEQ TABLET.ER (FP) PO SCH (10:19)
[2018-05-26] MEDS: AMINOCAPROIC ACID 500 MG TABLET PO SCH ×4 (10:19→21:39)
--- NOTE | 2018-05-26 10:26 | PN ---
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 History of Present Illness: Previous notes and events reviewed awake and alert NAD denies chest pain or sob wbc nl on amicar - Current Medication List Current Medications: Active Medications Acetaminophen (Tylenol -) 650 mg PO Q6H PRN PRN Reason: FEVER Last Admin: 05/21/18 18:47 Dose: 650 mg Amino Acids (Prosource No Carb Liquid Pkt) 30 ml PO BID@0800,1730 [facility] Last Admin: 05/26/18 08:27 Dose: 30 ml Aminocaproic Acid (Amicar -) 500 mg PO QID [facility] Last Admin: 05/25/18 21:48 Dose: 500 mg Benzocaine/Menthol (Cepacol Lozenge -) 1 each MM PRN PRN PRN Reason: SORE THROAT Dextrose/Sodium Chloride (D5-1/2ns -) 1,000 mls @ 250 mls/hr IV PRN [facility] Mirtazapine (Remeron -) 15 mg PO HS [facility] Last Admin: 05/25/18 21:46 Dose: 15 mg Phenol/Menthol (Chloraseptic -) 1 spray MM Q6HPO PRN PRN Reason: SORE THROAT Last Admin: 05/11/18 21:53 Dose: 1 spray Potassium Chloride (K-Dur -) 20 meq PO DAILY [facility] Last Admin: 05/25/18 11:35 Dose: 20 meq Saliva Substitute (Mouthkote Solution -) 1 applic MM DAILY [facility] Last Admin: 05/25/18 10:41 Dose: 1 applic - Objective Vital Signs: Vital Signs Temperature 98.1 F 05/26/18 06:00 Pulse Rate 94 H 05/26/18 06:00 Respiratory Rate 05/26/18 06:00 Blood Pressure 138/52 L 05/26/18 06:00 O2 Sat by Pulse Oximetry (%) 95 05/24/18 09:00 Constitutional: Yes: Calm, Cachectic, Mild Distress Eyes: Yes: Conjunctiva Clear Cardiovascular: Yes: Regular Rate and Rhythm Respiratory: Yes: Diminished, On Nasal O2 Gastrointestinal: Yes: Normal Bowel Sounds, Soft Genitourinary: Yes: Anaya Present (clear urine) Musculoskeletal: Yes: Muscle Weakness Extremities: Yes: WNL Edema: No Integumentary: Yes: WNL Neurological: Yes: Alert, Pre-Existing Deficit Psychiatric: Yes: Alert Labs: CBC, BMP 05/26/18 07:00 05/26/18 07:00 INR, PTT INR 0.98 (0.83-1.09) 05/23/18 06:30 Fibrinogen 593.0 mg/dL (238-498) H D 05/20/18 07:10 <Charis Naranjo Roxy - Last Filed: 05/26/18 10:21> - Current Medication List Current Medications: Active Medications Acetaminophen (Tylenol -) 650 mg PO Q6H PRN PRN Reason: FEVER Last Admin: 05/21/18 18:47 Dose: 650 mg Amino Acids (Prosource No Carb Liquid Pkt) 30 ml PO BID@0800,1730 [facility] Last Admin: 05/26/18 17:37 Dose: Not Given Aminocaproic Acid (Amicar -) 500 mg PO TID [facility] Benzocaine/Menthol (Cepacol Lozenge -) 1 each MM PRN PRN PRN Reason: SORE THROAT Dextrose/Sodium Chloride (D5-1/2ns -) 1,000 mls @ 250 mls/hr IV PRN [facility] Mirtazapine (Remeron -) 15 mg PO HS [facility] Last Admin: 05/25/18 21:46 Dose: 15 mg Phenol/Menthol (Chloraseptic -) 1 spray MM Q6HPO PRN PRN Reason: SORE THROAT Last Admin: 05/11/18 21:53 Dose: 1 spray Potassium Chloride (K-Dur -) 20 meq PO DAILY [facility] Last Admin: 05/26/18 10:19 Dose: 20 meq Saliva Substitute (Mouthkote Solution -) 1 applic MM DAILY [facility] Last Admin: 05/26/18 10:19 Dose: 1 applic - Objective Vital Signs: Vital Signs Temperature 98.4 F 05/26/18 18:30 Pulse Rate 98 H 05/26/18 18:30 Respiratory Rate 20 05/26/18 18:30 Blood Pressure 108/59 L 05/26/18 18:30 O2 Sat by Pulse Oximetry (%) 95 05/24/18 09:00 Labs: CBC, BMP 05/26/18 07:00 05/26/18 07:00 INR, PTT INR 0.98 (0.83-1.09) 05/23/18 06:30 Fibrinogen 593.0 mg/dL (238-498) H D 05/20/18 07:10 <Cecilia Pulido - Last Filed: 05/26/18 20:51> Problem List - Problems (1) Anemia Code(s): D64.9 - ANEMIA, UNSPECIFIED Qualifiers: Other causes of anemia: acute posthemorrhagic (2) Bacteremia Code(s): R78.81 - BACTEREMIA (3) Fever Code(s): R50.9 - FEVER, UNSPECIFIED (4) Hematuria, gross Code(s): R31.0 - GROSS HEMATURIA (5) Lung metastases Code(s): C78.00 - SECONDARY MALIGNANT NEOPLASM OF UNSPECIFIED LUNG (6) Metastatic malignant neoplasm to prostate Code(s): C79.82 - SECONDARY MALIGNANT NEOPLASM OF GENITAL ORGANS (7) Severe malnutrition Code(s): E43 - UNSPECIFIED SEVERE PROTEIN-CALORIE MALNUTRITION <Charis Naranjo - Last Filed: 05/26/18 10:21> - Problems (1) Hematuria, gross Code(s): R31.0 - GROSS HEMATURIA (2) Metastatic malignant neoplasm to prostate Code(s): C79.82 - SECONDARY MALIGNANT NEOPLASM OF GENITAL ORGANS (3) History of dysphagia Code(s): Z87.19 - PERSONAL HISTORY OF OTHER DISEASES OF THE DIGESTIVE SYSTEM (4) Weakness Code(s): R53.1 - WEAKNESS <Cecilia Pulido - Last Filed: 05/26/18 20:51> Assessment/Plan -urology on board -FC present, daily FC care -CBI discontinued by urology -flush catheter as needed for irrigation if no urine output noted -strict I&O -H/H stable, will cont to monitor -Stool OB neg -amicar dose decreased -BUN elev, nephrology on board, will cont to trend -O2 via NC PRN, bronchodilators -keep SpO2 >90% -dvt ppx -fall precaution -started on prosource BID -dysphagia diet, artificial saliva -pending discharge to SNF when bed become available <Charis Naranjo - Last Filed: 05/26/18 10:21> PATIENT SEEN AND EXAMINED AND I AGREE WITH THE ABOVE NOTE <Cecilia Pulido - Last Filed: 05/26/18 20:51>
--- NOTE | 2018-05-26 12:28 | PN ---
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 Less congested. Reported to be eating a bit more today. Egg custard, yogurt, finely mashed tuna with extra rosales Pending d/c to [facility].
--- NOTE | 2018-05-26 13:42 | PN ---
Progress Note, Physician History of Present Illness: stable says he feels weak - Current Medication List Current Medications: Active Medications Acetaminophen (Tylenol -) 650 mg PO Q6H PRN PRN Reason: FEVER Last Admin: 05/21/18 18:47 Dose: 650 mg Amino Acids (Prosource No Carb Liquid Pkt) 30 ml PO BID@0800,1730 [facility] Last Admin: 05/26/18 08:27 Dose: 30 ml Aminocaproic Acid (Amicar -) 500 mg PO QID [facility] Last Admin: 05/26/18 10:19 Dose: 500 mg Benzocaine/Menthol (Cepacol Lozenge -) 1 each MM PRN PRN PRN Reason: SORE THROAT Dextrose/Sodium Chloride (D5-1/2ns -) 1,000 mls @ 250 mls/hr IV PRN [facility] Mirtazapine (Remeron -) 15 mg PO HS [facility] Last Admin: 05/25/18 21:46 Dose: 15 mg Phenol/Menthol (Chloraseptic -) 1 spray MM Q6HPO PRN PRN Reason: SORE THROAT Last Admin: 05/11/18 21:53 Dose: 1 spray Potassium Chloride (K-Dur -) 20 meq PO DAILY [facility] Last Admin: 05/26/18 10:19 Dose: 20 meq Saliva Substitute (Mouthkote Solution -) 1 applic MM DAILY [facility] Last Admin: 05/26/18 10:19 Dose: 1 applic - Objective Vital Signs: Vital Signs Temperature 98.5 F 05/26/18 10:00 Pulse Rate 98 H 05/26/18 10:00 Respiratory Rate 20 05/26/18 10:00 Blood Pressure 111/57 L 05/26/18 10:00 O2 Sat by Pulse Oximetry (%) 95 05/24/18 09:00 Constitutional: Yes: Calm Cardiovascular: Yes: Regular Rate and Rhythm Respiratory: Yes: Regular, CTA Bilaterally Gastrointestinal: Yes: Normal Bowel Sounds, Soft Musculoskeletal: Yes: WNL Extremities: Yes: WNL Neurological: Yes: Alert, Oriented Psychiatric: Yes: Alert, Oriented Labs: CBC, BMP 05/26/18 07:00 05/26/18 07:00 INR, PTT INR 0.98 (0.83-1.09) 05/23/18 06:30 Fibrinogen 593.0 mg/dL (238-498) H D 05/20/18 07:10 Assessment/Plan Problem List - Problems (1) Fever Code(s): R50.9 - FEVER, UNSPECIFIED (2) Hematuria, gross Code(s): R31.0 - GROSS HEMATURIA (3) Metastatic malignant neoplasm to prostate Code(s): C79.82 - SECONDARY MALIGNANT NEOPLASM OF GENITAL ORGANS (4) UTI (urinary tract infection) Code(s): N39.0 - URINARY TRACT INFECTION, SITE NOT SPECIFIED Qualifiers: Urinary tract infection type: site unspecified Hematuria presence: without hematuria Qualified Code(s): N39.0 - Urinary tract infection, site not specified (5) Urinary catheter insertion/adjustment/removal Code(s): Z46.6 - ENCOUNTER FOR FITTING AND ADJUSTMENT OF URINARY DEVICE (6) Weakness Code(s): R53.1 - WEAKNESS 7 gm negative bacteremia Assessment/Plan 88 y.o. 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 Noted to have clots in urine and started on CBI. Today found to have fever of 102.4F Fever Hematuria/urinary retention Chronic indwelling barger Metastatic Prostate CA gm negative bacteremia plan continue monitoring nutrition main issue continue cbi rest as per the team
--- NOTE | 2018-05-26 17:26 | PN ---
Progress Note (short form) - Note Progress Note: Renal follow up for Hematuria Pt seen and examined at the bedside has a mild cough cough no sob tolerating oral diet Vital Signs Temperature 98.5 F 05/26/18 10:00 Pulse Rate 98 H 05/26/18 10:00 Respiratory Rate 20 05/26/18 10:00 Blood Pressure 111/57 L 05/26/18 10:00 O2 Sat by Pulse Oximetry (%) 95 05/24/18 09:00 Intake & Output 05/23/18 05/24/18 05/25/18 05/26/18 23:59 23:59 23:59 23:59 Intake Total 45411 4550 500 250 Output Total 02086 17909 950 400 Balance -250 -5450 -450 -[address] no LE edema Dec BS, no rales RRR CBC, BMP 05/26/18 07:00 05/26/18 07:00 Current Medications Acetaminophen (Tylenol -) 650 mg PO Q6H PRN PRN Reason: FEVER Last Admin: 05/21/18 18:47 Dose: 650 mg Amino Acids (Prosource No Carb Liquid Pkt) 30 ml PO BID@0800,1730 [facility] Last Admin: 05/26/18 08:27 Dose: 30 ml Aminocaproic Acid (Amicar -) 500 mg PO QID [facility] Last Admin: 05/26/18 13:57 Dose: 500 mg Benzocaine/Menthol (Cepacol Lozenge -) 1 each MM PRN PRN PRN Reason: SORE THROAT Dextrose/Sodium Chloride (D5-1/2ns -) 1,000 mls @ 250 mls/hr IV PRN [facility] Mirtazapine (Remeron -) 15 mg PO HS [facility] Last Admin: 05/25/18 21:46 Dose: 15 mg Phenol/Menthol (Chloraseptic -) 1 spray MM Q6HPO PRN PRN Reason: SORE THROAT Last Admin: 05/11/18 21:53 Dose: 1 spray Potassium Chloride (K-Dur -) 20 meq PO DAILY [facility] Last Admin: 05/26/18 10:19 Dose: 20 meq Saliva Substitute (Mouthkote Solution -) 1 applic MM DAILY [facility] Last Admin: 05/26/18 10:19 Dose: 1 applic 88 y.o. male with PMH of Prostate CA with metastasis to lungs and lumbar spine, chronic indwelling barger catheter, renal calculi s/p lithotripsy, and HLD presented to the ER due to persistent hematuria #Azotemia/SUKHI #Hematuria #Prostate Cancer #Anemia #Lactic acidosis now resolved Renal function stable off CBI, barger with good output continue oral fluid intake discharge planning as per primary Raúl Santana DO
--- NOTE | 2018-05-26 19:43 | PN ---
Progress Note (short form) - Note Progress Note: patient seen and examined hematuria AFVSs Cor: RSR, No murmurs, No gallops Lungs: Clear to P&A Abd: Soft, Normal bowel sounds, No organomegaly Ext:No significant edema Labs/meds reviewed a/p 88 y/o wth metastatic prostate cancer. refused Xtandi and luprn vivien past. Liver/ lung/bone mets poor performance status Hematuria improved Tapering amicar
[2018-05-26] MEDS ORDERED: PT OWN MED DRAWER 7, Y5N ONE (21:29)
[2018-05-26] MEDS: MIRTAZAPINE 15 MG TABLET (FP) PO SCH (21:39)
[2018-05-27] MEDS: AMINOCAPROIC ACID 500 MG TABLET PO SCH ×2 (05:34→15:09)
[2018-05-27 08:09] LABS: BASO % 1.2 % (0-2.0); EOS % 2.3 % (0-4.5); HEMATOCRIT 30.9 % (35.4-49); HEMOGLOBIN 10.5 GM/dL (11.7-16.9); LYMPH % 11.3 % (8-40); MCH 31.4 pg (25.7-33.7); MCHC 34.1 g/dl (32.0-35.9); MEAN PLT VOLUME 7.9 fl (7.5-11.1); MONO % 8.5 % (3.8-10.2); NEUT % 76.7 % (42.8-82.8); PLATELET COUNT 309 K/MM3 (134-434); RBC 3.36 M/mm3 (4.00-5.60); RDW 15.9 % (11.9-15.9); WHITE BLOOD COUNT 5.5 K/mm3 (4.0-10.0)
[2018-05-27 08:18] LABS: ALBUMIN 1.9 g/dl (3.4-5.0); ALK PHOS 211 U/L (45-117); ANION GAP 6 MMOL/L (8-16); BILIRUBIN,TOTAL 0.5 mg/dL (0.2-1); BLOOD UREA NITROGEN 24 mg/dL (7-18); CALCIUM 8.2 mg/dL (8.5-10.1); CHLORIDE 110 mmol/L (98-107); CO2 30 mmol/L (21-32); CREATININE 0.6 mg/dL (0.55-1.3); GLUCOSE,RANDOM 111 mg/dL (74-106); POTASSIUM 4.2 mmol/L (3.5-5.1); SGOT/AST 29 U/L (15-37); SGPT/ALT 8 U/L (13-61); SODIUM 147 mmol/L (136-145); TOT PROT 5.2 g/dl (6.4-8.2)
[2018-05-27] MEDS: AMINO ACIDS/PROTEIN HYDROLYS 30 ML LIQUID.PKT PO SCH ×2 (09:14→17:23)
--- NOTE | 2018-05-27 10:01 | PN ---
Progress Note (short form) - Note Progress Note: Resting in NAD. Overall less congested cough. No hemoptysis. Intake & Output 05/24/18 05/25/18 05/26/18 05/27/18 23:59 23:59 23:59 23:59 Intake Total 4550 500 250 Output Total 79887 950 1000 Balance -5450 -450 -750 Last Vital Signs Temp Pulse Resp BP Pulse Ox 98.3 F 98 H 20 103/59 L 96 05/27/18 06:00 05/27/18 06:00 05/27/18 06:00 05/27/18 06:00 05/26/18 22:00 Active Medications Acetaminophen (Tylenol -) 650 mg PO Q6H PRN PRN Reason: FEVER Last Admin: 05/21/18 18:47 Dose: 650 mg Amino Acids (Prosource No Carb Liquid Pkt) 30 ml PO BID@0800,1730 [facility] Last Admin: 05/27/18 09:14 Dose: Not Given Aminocaproic Acid (Amicar -) 500 mg PO TID [facility] Last Admin: 05/27/18 05:34 Dose: 500 mg Benzocaine/Menthol (Cepacol Lozenge -) 1 each MM PRN PRN PRN Reason: SORE THROAT Dextrose/Sodium Chloride (D5-1/2ns -) 1,000 mls @ 250 mls/hr IV PRN [facility] Mirtazapine (Remeron -) 15 mg PO HS [facility] Last Admin: 05/26/18 21:39 Dose: 15 mg Phenol/Menthol (Chloraseptic -) 1 spray MM Q6HPO PRN PRN Reason: SORE THROAT Last Admin: 05/11/18 21:53 Dose: 1 spray Potassium Chloride (K-Dur -) 20 meq PO DAILY [facility] Last Admin: 05/26/18 10:19 Dose: 20 meq Saliva Substitute (Mouthkote Solution -) 1 applic MM DAILY [facility] Last Admin: 05/26/18 10:19 Dose: 1 applic Constitutional: Yes: No Distress, Cachectic, Thin Eyes: Yes: Conjunctiva Clear, EOM Intact HENT: Yes: Atraumatic, Normocephalic Neck: Yes: Supple, Trachea Midline Cardiovascular: Yes: Regular Rate and Rhythm Respiratory: Yes: Cough, Diminished, On Nasal O2, Rhonchi, SOB, SOB on Exertion , Tachypnea. No: Accessory Muscle Use, Rales, Stridor, Wheezes ...Inspection: Yes: WNL ...Clubbing: No Gastrointestinal: Yes: Normal Bowel Sounds, Soft Renal/: Yes: Anaya Present Musculoskeletal: Yes: Back Pain, Joint Stiffness Extremities: Yes: WNL Edema: No Peripheral Pulses WNL: Yes Integumentary: Yes: WNL Neurological: Yes: Alert, Oriented Psychiatric: Yes: Alert, Oriented Labs: Laboratory Results - last 24 hr 05/27/18 05/27/18 07:00 07:00 WBC 5.5 RBC 3.36 L Hgb 10.5 L Hct 30.9 L MCV 92.0 MCH 31.4 MCHC 34.1 RDW 15.9 Plt Count 309 MPV 7.9 Absolute Neuts (auto) 4.2 Neutrophils % 76.7 Lymphocytes % 11.3 Monocytes % 8.5 Eosinophils % 2.3 Basophils % 1.2 Nucleated RBC % 0 Sodium 147 H Potassium 4.2 Chloride 110 H Carbon Dioxide 30 Anion Gap 6 L BUN 24 H Creatinine 0.6 Creat Clearance w eGFR > 60 Random Glucose 111 H Calcium 8.2 L Total Bilirubin 0.5 AST 29 ALT 8 L Alkaline Phosphatase 211 H Total Protein 5.2 L Albumin 1.9 L Problem List - Problems (1) Lung metastases Code(s): C78.00 - SECONDARY MALIGNANT NEOPLASM OF UNSPECIFIED LUNG (2) Fever Code(s): R50.9 - FEVER, UNSPECIFIED (3) Hematuria, gross Code(s): R31.0 - GROSS HEMATURIA (4) Metastatic malignant neoplasm to prostate Code(s): C79.82 - SECONDARY MALIGNANT NEOPLASM OF GENITAL ORGANS (5) Bronchitis Code(s): J40 - BRONCHITIS, NOT SPECIFIED ACUTE OR CHRONIC (6) Shortness of breath Code(s): R06.02 - SHORTNESS OF BREATH (7) Weakness Code(s): R53.1 - WEAKNESS (8) Suspected RLL Post obstructive PNA Assessment/Plan Off ABX per ID O2 as needed BD TX PRN Incentive Spirometry No smoking No Pulmonary contraindication for D/C planning Dr Duncan Problem List - Problems (1) Lung metastases Code(s): C78.00 - SECONDARY MALIGNANT NEOPLASM OF UNSPECIFIED LUNG (2) Fever Code(s): R50.9 - FEVER, UNSPECIFIED (3) Hematuria, gross Code(s): R31.0 - GROSS HEMATURIA (4) Metastatic malignant neoplasm to prostate Code(s): C79.82 - SECONDARY MALIGNANT NEOPLASM OF GENITAL ORGANS (5) Bronchitis Code(s): J40 - BRONCHITIS, NOT SPECIFIED ACUTE OR CHRONIC (6) Shortness of breath Code(s): R06.02 - SHORTNESS OF BREATH (7) Weakness Code(s): R53.1 - WEAKNESS
[2018-05-27] MEDS ORDERED: PT OWN MED DRAWER 7, Y5N ONE (10:38)
[2018-05-27] MEDS: LYTES/YERBA SANTA 240 ML BOTTLE MM SCH (11:09)
[2018-05-27] MEDS: POTASSIUM CHLORIDE TABS 20 MEQ TABLET.ER (FP) PO SCH (11:09)
--- NOTE | 2018-05-27 12:35 | PN ---
Progress Note, Physician History of Present Illness: stable no complaints urine clear now patient looks better - Current Medication List Current Medications: Active Medications Acetaminophen (Tylenol -) 650 mg PO Q6H PRN PRN Reason: FEVER Last Admin: 05/21/18 18:47 Dose: 650 mg Amino Acids (Prosource No Carb Liquid Pkt) 30 ml PO BID@0800,1730 [facility] Last Admin: 05/27/18 09:14 Dose: Not Given Aminocaproic Acid (Amicar -) 500 mg PO TID [facility] Last Admin: 05/27/18 05:34 Dose: 500 mg Benzocaine/Menthol (Cepacol Lozenge -) 1 each MM PRN PRN PRN Reason: SORE THROAT Dextrose/Sodium Chloride (D5-1/2ns -) 1,000 mls @ 250 mls/hr IV PRN [facility] Mirtazapine (Remeron -) 15 mg PO HS [facility] Last Admin: 05/26/18 21:39 Dose: 15 mg Phenol/Menthol (Chloraseptic -) 1 spray MM Q6HPO PRN PRN Reason: SORE THROAT Last Admin: 05/11/18 21:53 Dose: 1 spray Potassium Chloride (K-Dur -) 20 meq PO DAILY [facility] Last Admin: 05/27/18 11:09 Dose: Not Given Saliva Substitute (Mouthkote Solution -) 1 applic MM DAILY [facility] Last Admin: 05/27/18 11:09 Dose: Not Given - Objective Vital Signs: Vital Signs Temperature 98.7 F 05/27/18 10:00 Pulse Rate 96 H 05/27/18 10:00 Respiratory Rate 20 05/27/18 10:00 Blood Pressure 116/60 05/27/18 10:00 O2 Sat by Pulse Oximetry (%) 96 05/26/18 22:00 Constitutional: Yes: No Distress, Calm, Other (failure to thrive) Cardiovascular: Yes: Regular Rate and Rhythm Respiratory: Yes: Regular, CTA Bilaterally Gastrointestinal: Yes: Normal Bowel Sounds Genitourinary: Yes: Barger Present Musculoskeletal: Yes: WNL Extremities: Yes: WNL Neurological: Yes: Alert, Oriented Psychiatric: Yes: Alert, Oriented Labs: CBC, BMP 05/27/18 07:00 05/27/18 07:00 INR, PTT INR 0.98 (0.83-1.09) 05/23/18 06:30 Fibrinogen 593.0 mg/dL (238-498) H D 05/20/18 07:10 Assessment/Plan Problem List - Problems (1) Fever Code(s): R50.9 - FEVER, UNSPECIFIED (2) Hematuria, gross Code(s): R31.0 - GROSS HEMATURIA (3) Metastatic malignant neoplasm to prostate Code(s): C79.82 - SECONDARY MALIGNANT NEOPLASM OF GENITAL ORGANS (4) UTI (urinary tract infection) Code(s): N39.0 - URINARY TRACT INFECTION, SITE NOT SPECIFIED Qualifiers: Urinary tract infection type: site unspecified Hematuria presence: without hematuria Qualified Code(s): N39.0 - Urinary tract infection, site not specified (5) Urinary catheter insertion/adjustment/removal Code(s): Z46.6 - ENCOUNTER FOR FITTING AND ADJUSTMENT OF URINARY DEVICE (6) Weakness Code(s): R53.1 - WEAKNESS 7 gm negative bacteremia Assessment/Plan 88 y.o. 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 Noted to have clots in urine and started on CBI. Today found to have fever of 102.4F Fever Hematuria/urinary retention Chronic indwelling barger Metastatic Prostate CA gm negative bacteremia plan continue monitoring nutrition main issue continue cbi rest as per the team
--- NOTE | 2018-05-27 13:11 | PN ---
Progress Note, Physician History of Present Illness: patient seen and examined at bedside. c/o L knee pain, mostly frontal knee cap. CBI was discontinued 3 days ago but denita still has pink urine output. - Current Medication List Current Medications: Active Medications Acetaminophen (Tylenol -) 650 mg PO Q6H PRN PRN Reason: FEVER Last Admin: 05/21/18 18:47 Dose: 650 mg Amino Acids (Prosource No Carb Liquid Pkt) 30 ml PO BID@0800,1730 [facility] Last Admin: 05/27/18 09:14 Dose: Not Given Aminocaproic Acid (Amicar -) 500 mg PO TID [facility] Last Admin: 05/27/18 05:34 Dose: 500 mg Benzocaine/Menthol (Cepacol Lozenge -) 1 each MM PRN PRN PRN Reason: SORE THROAT Dextrose/Sodium Chloride (D5-1/2ns -) 1,000 mls @ 250 mls/hr IV PRN [facility] Mirtazapine (Remeron -) 15 mg PO HS [facility] Last Admin: 05/26/18 21:39 Dose: 15 mg Phenol/Menthol (Chloraseptic -) 1 spray MM Q6HPO PRN PRN Reason: SORE THROAT Last Admin: 05/11/18 21:53 Dose: 1 spray Potassium Chloride (K-Dur -) 20 meq PO DAILY [facility] Last Admin: 05/27/18 11:09 Dose: Not Given Saliva Substitute (Mouthkote Solution -) 1 applic MM DAILY [facility] Last Admin: 05/27/18 11:09 Dose: Not Given - Objective Vital Signs: Vital Signs Temperature 98.7 F 05/27/18 10:00 Pulse Rate 96 H 05/27/18 10:00 Respiratory Rate 20 05/27/18 10:00 Blood Pressure 116/60 05/27/18 10:00 O2 Sat by Pulse Oximetry (%) 96 05/26/18 22:00 Constitutional: Yes: No Distress, Calm HENT: Yes: Atraumatic, Normocephalic Cardiovascular: Yes: Regular Rate and Rhythm, S1, S2 Respiratory: Yes: CTA Bilaterally Gastrointestinal: Yes: Normal Bowel Sounds, Soft. No: Tenderness Genitourinary: Yes: Hematuria Edema: No Labs: CBC, BMP 05/27/18 07:00 05/27/18 07:00 INR, PTT INR 0.98 (0.83-1.09) 05/23/18 06:30 Fibrinogen 593.0 mg/dL (238-498) H D 05/20/18 07:10 Impression/Plan Impression/Plan: 88 yo F h/o prostate CA w/ mets to lungs and lumbar spine admitted to hospital for hematuria now on CBI. Impression: hematuria on CBI prostate CA w/ mets to lung, liver and bone Plan: amicar tapered down to 500mg tid still having hematuria cont. monitor H/H and plt count and urine lower extremity duplex to r/o dvt Esequiel Cheema PGY3 Visit type - Emergency Visit Emergency Visit: No - New Patient This patient is new to me today: No - Critical Care Critical Care patient: No - Discharge Referral Referred to [facility] No
[2018-05-27 13:35] VITALS: BP 103/51; PULSE 99; TEMP 98.9
--- NOTE | 2018-05-27 16:10 | DS ---
Physical Examination Vital Signs: Vital Signs Temperature 98.9 F 05/27/18 13:34 Pulse Rate 99 H 05/27/18 13:34 Respiratory Rate 20 05/27/18 13:34 Blood Pressure 103/51 L 05/27/18 13:34 O2 Sat by Pulse Oximetry (%) 96 05/26/18 22:00 Constitutional: Yes: Mild Distress Cardiovascular: Yes: Regular Rate and Rhythm Respiratory: Yes: On Nasal O2 Gastrointestinal: Yes: Soft Renal/: Yes: Barger Present Musculoskeletal: Yes: Muscle Weakness Labs: CBC, BMP 05/27/18 07:00 05/27/18 07:00 Discharge Summary Reason For Visit: GROSS HEMATURIA Current Active Problems Anemia (Acute) Bacteremia (Acute) Fever (Acute) Hematuria, gross (Acute) Hypokalemia (Acute) Lung metastases (Acute) Metastatic malignant neoplasm to prostate (Acute) Severe malnutrition (Acute) Hospital Course: admitted for malignancy of prostate, dehydration, poor appetite, weakness, hematurea treated with abx and cbi, pain control Condition: Stable - Instructions Diet, Activity, Other Instructions: f/u with amd Oncology needs rehab and PT at this time check labs CBI barger for treatment and comfort Disposition: LONG TERM FACILITY - Home Medications Comprehensive Discharge Medication List: Ambulatory Orders Cefpodoxime Proxetil [Vantin -] 100 mg PO BID #14 tablet 02/20/18
== END 2018-05-27 19:14 | DRG 722 ==
LOC: JER 17:29 → JERBED 20:57 → J6S 05-10 01:36
PROVIDERS: ADMIT Family Medicine; ATTEND Family Medicine
PROC: 30233N1 Transfusion of Nonautologous Red Blood Cells into Peripheral Vein, Percutaneous Approach (ICD-10-PCS; principal; 2018-05-20)
DX: C61 Malignant neoplasm of prostate (principal); E43 Unspecified severe protein-calorie malnutrition; J18.8 Other pneumonia, unspecified organism; A41.89 Other specified sepsis; C78.00 Secondary malignant neoplasm of unspecified lung; N39.0 Urinary tract infection, site not specified; E87.2 Acidosis; R64 Cachexia; Z68.1 Body mass index [BMI] 19.9 or less, adult; C79.51 Secondary malignant neoplasm of bone; N17.9 Acute kidney failure, unspecified; R31.0 Gross hematuria; Z46.6 Encounter for fitting and adjustment of urinary device; T83.098A Other mechanical complication of other urinary catheter, initial encounter; E87.6 Hypokalemia; E86.0 Dehydration; R53.1 Weakness; R33.9 Retention of urine, unspecified; D64.9 Anemia, unspecified; R62.7 Adult failure to thrive; Y83.9 Surgical procedure, unspecified as the cause of abnormal reaction of the patient, or of later complication, without mention of misadventure at the time of the procedure
CPT/HCPCS: 36415; 36430; 71045-TC-FY; 74230-TC-FY; 76775-TC; 80048; 80053; 81003; 81015; 82272; 82728; 83036; 83540; 83550; 83605; 83735; 84100; 85025; 85027; 85384; 85610; 85730; 86850; 86900; 86901; 86922; 87040; 87077; 87086; 87186; 92611-GN; 93005; 93010; 94010; 94640; 97116-GP; 97162-GP; 99284-25; J0131; J1756; J7030; P9038; P9058